=== PATIENT | male | born 1975 | race Caucasian/White ===

== ENCOUNTER 2017-11-14 19:19 | Observation (INO) ==
[2017-11-14 19:41] LABS: Basophils % 0.5 % (0.0-0.8); Eosinophils # 0.3 10*3/uL (0.0-0.87); Eosinophils % 5.8 % (0.00-10.9); Hematocrit 25.6 VOL% (42.0-52.0); Hemoglobin 7.2 GM/DL (14.0-18.0); Immature Granulocytes % 0.2 %; Immature Granulocytes Absolute 0.01 #; Lymphocytes # 1.4 10*3/uL (1.4-4.0); Lymphocytes % 32.6 % (21.2-54.2); Mean Corpuscular HGB Conc 28.1 GM/DL (32-36); Mean Corpuscular Hemoglobin 23 PG (27-34); Mean Corpuscular Volume 82.3 FL (87-102); Mean Platelet Volume 11.3 FL (9.6-12.0); Monocytes # 0.5 10*3/uL (0.11-0.8); Monocytes % 10.9 % (1.7-12.7); Neutrophils # 2.2 10*3/uL (1.4-7.4); Platelet Count 88 T/CUMM (130-400); Red Blood Count 3.11 MC/CUMM (3.8-5.5); Red Cell Distribution Width 17.1 % (9.3-17.3); White Blood Count 4.3 T/CUMM (4-12)
[2017-11-14 19:59] LABS: Calcium 8.7 MG/DL (8.5-10.1); Osmolality,Calculated 284.8 MOS/KG (273-304); Potassium 3.9 MMOL/L (3.5-5.1)
[2017-11-14] MEDS ORDERED: FUROSEMIDE 40 MG/4 ML VIAL IV STA (20:00)
[2017-11-14] MEDS ORDERED: ASPIRIN 325 MG TABLET PO STA (20:00)
[2017-11-14 20:06] LABS: PT Patient Result 10.9 SECS
[2017-11-14 20:08] LABS: Albumin 2.9 G/DL (3.4-5.0); Bilirubin,Total 0.6 MG/DL (0.2-1.0); Calcium 8.6 MG/DL (8.5-10.1); Osmolality,Calculated 286.7 MOS/KG (273-304); Platelet Estimate Decreased; Potassium 3.9 MMOL/L (3.5-5.1); Total Protein 6.4 G/DL (6.4-8.3)
[2017-11-14 20:40] LABS: Ammonia 51 UMOL/L (11-32)
[2017-11-14 20:58] LABS: Apearance,Urine CLEAR (Clear); Bilirubin,Urine Negative (Negative); Blood, Urine Negative (Negative); Glucose,Urine (UA) Negative (Negative); Ketones,Urine Negative (Negative); Mucus,Urine Occasional /LPF (Occasional); Nitrite,Urine Negative (Negative); Protein,Urine Negative; RBC,Urine <1 /HPF (0-4); Squamous Epithelial Cell,Urine Occasional /HPF (0-10); Urine Color Colorless (Yellow); Urine Specific Gravity 1.005 (1.001-1.035); Urine Urobilinogen < 2.0 EU/DL (0.2-1.0); WBC,Urine <1 /HPF (0-6)
[2017-11-14 21:04] LABS: Barbiturates Screen,Urine Negative (Negative); Benzodiazepines Screen,Urine Negative (Negative); Cannabinoid Screen,Urine Negative (Negative); Opiate Screen,Urine Negative (Negative); Phencyclidine Screen,Urine Negative (Negative)
[2017-11-14] MEDS ORDERED: ORPHENADRINE 60 MG/2 ML VIAL IV STA (22:47)
[2017-11-14] MEDS ORDERED: POTASSIUM BICARB EFFERVESCENT 25 MEQ TABLET PO ONE (22:47)
[2017-11-14] MEDS ORDERED: ENOXAPARIN 30 MG/0.3 ML SYRINGE SUBCUT SCH (23:45)
[2017-11-15 00:25] LABS: Risk Ratio 2.76; Thyroid Stimulating Hormone 4.14 uIU/ml (0.358-3.74)
[2017-11-15 01:43] LABS: Basophils % 0.5 % (0.0-0.8); Eosinophils # 0.2 10*3/uL (0.0-0.87); Eosinophils % 5.8 % (0.00-10.9); Hematocrit 25.3 VOL% (42.0-52.0); Hemoglobin 7.3 GM/DL (14.0-18.0); Immature Granulocytes % 0.2 %; Immature Granulocytes Absolute 0.01 #; Lymphocytes # 1.3 10*3/uL (1.4-4.0); Lymphocytes % 30.8 % (21.2-54.2); Mean Corpuscular HGB Conc 28.9 GM/DL (32-36); Mean Corpuscular Hemoglobin 23 PG (27-34); Mean Corpuscular Volume 80.3 FL (87-102); Mean Platelet Volume 12.5 FL (9.6-12.0); Monocytes # 0.6 10*3/uL (0.11-0.8); Monocytes % 15.3 % (1.7-12.7); Neutrophils % 47.4 % (38.7-73.9); Platelet Count 87 T/CUMM (130-400); Red Blood Count 3.15 MC/CUMM (3.8-5.5); Red Cell Distribution Width 17.3 % (9.3-17.3); White Blood Count 4.1 T/CUMM (4-12)
[2017-11-15 02:38] LABS: Albumin 2.9 G/DL (3.4-5.0); Bilirubin,Total 0.5 MG/DL (0.2-1.0); Calcium 8.1 MG/DL (8.5-10.1); Osmolality,Calculated 283.1 MOS/KG (273-304); Potassium 3.7 MMOL/L (3.5-5.1)
[2017-11-15 02:49] LABS: Basophils % 0.3 % (0.0-0.8); Eosinophils # 0.3 10*3/uL (0.0-0.87); Hematocrit 24.7 VOL% (42.0-52.0); Immature Granulocytes % 0.5 %; Immature Granulocytes Absolute 0.02 #; Lymphocytes # 1.1 10*3/uL (1.4-4.0); Lymphocytes % 28.9 % (21.2-54.2); Mean Corpuscular HGB Conc 28.3 GM/DL (32-36); Mean Corpuscular Hemoglobin 23 PG (27-34); Mean Corpuscular Volume 81.3 FL (87-102); Monocytes # 0.6 10*3/uL (0.11-0.8); Monocytes % 14.7 % (1.7-12.7); Neutrophils # 1.9 10*3/uL (1.4-7.4); Neutrophils % 48.6 % (38.7-73.9); Platelet Count 90 T/CUMM (130-400); Red Blood Count 3.04 MC/CUMM (3.8-5.5); Red Cell Distribution Width 17.2 % (9.3-17.3); White Blood Count 3.9 T/CUMM (4-12)
[2017-11-15] MEDS ORDERED: MORPHINE 4 MG/1 ML VIAL IV ONE (03:23)
[2017-11-15 07:53] LABS: Anisocytosis 1+; Band Neutrophils 2 % (0-10); Basophilic Stippling Slight; Eosinophils 5 % (0-10); Lymphocytes 23 % (20-55); Metamyelocytes 1 %; Platelet Estimate Decreased; Segmented Neutrophils 58 % (50-85); Total Cells Counted 100
[2017-11-15] MEDS ORDERED: ASPIRIN 325 MG TABLET PO SCH (09:00)
[2017-11-15] MEDS: RIFAXIMIN 550 MG TABLET PO SCH ×3 (09:49→20:44)
[2017-11-15] MEDS: FUROSEMIDE 40 MG/4 ML VIAL IV SCH (09:50)
[2017-11-15] MEDS: PANTOPRAZOLE 40 MG TABLET PO SCH (09:50)
[2017-11-15] MEDS: CYCLOBENZAPRINE 10 MG TABLET PO PRN (14:24)
[2017-11-15] MEDS: GABAPENTIN 100 MG CAPSULE PO SCH ×2 (16:58→20:45)
[2017-11-15] MEDS: NADOLOL 40 MG TABLET PO SCH (20:45)
[2017-11-15] MEDS: TAMSULOSIN 0.4 MG CAPSULE PO SCH (20:45)
[2017-11-16 03:43] LABS: Basophils % 0.3 % (0.0-0.8); Eosinophils # 0.2 10*3/uL (0.0-0.87); Eosinophils % 5.8 % (0.00-10.9); Hemoglobin 7.1 GM/DL (14.0-18.0); Immature Granulocytes % 0.3 %; Immature Granulocytes Absolute 0.01 #; Lymphocytes % 29.7 % (21.2-54.2); Mean Corpuscular HGB Conc 29.6 GM/DL (32-36); Mean Corpuscular Hemoglobin 23 PG (27-34); Mean Corpuscular Volume 78.9 FL (87-102); Mean Platelet Volume 12.3 FL (9.6-12.0); Monocytes # 0.4 10*3/uL (0.11-0.8); Monocytes % 12.4 % (1.7-12.7); NRBC # 0.02 10*3/uL; Neutrophils # 1.8 10*3/uL (1.4-7.4); Neutrophils % 51.5 % (38.7-73.9); Platelet Count 76 T/CUMM (130-400); Red Blood Count 3.04 MC/CUMM (3.8-5.5); Red Cell Distribution Width 17.3 % (9.3-17.3); White Blood Count 3.5 T/CUMM (4-12)
[2017-11-16 04:31] LABS: Albumin 2.7 G/DL (3.4-5.0); Bilirubin,Direct 0.15 MG/DL (0.0-0.20); Bilirubin,Indirect 0.5 MG/DL (0.0-1.0); Bilirubin,Total 0.6 MG/DL (0.2-1.0); Calcium 7.9 MG/DL (8.5-10.1); Free T4 (Free Thyroxine) 0.89 NG/DL (0.76-1.46); Potassium 3.9 MMOL/L (3.5-5.1); Total Protein 5.7 G/DL (6.4-8.3)
[2017-11-16 05:11] LABS: Anisocytosis 1+; Hypochromasia 2+; Poikilocytosis 1+; Target Cells 1+
[2017-11-16 05:12] LABS: Polychromasia Slight
[2017-11-16] MEDS ORDERED: SODIUM CHLORIDE 0.9% 1,000 ML IV PRN (08:52)
[2017-11-16 09:08] LABS: % Iron Saturation 5.9 % (18-50); Ferritin 7.5 ng/ml (26-388)
[2017-11-16] MEDS: PANTOPRAZOLE 40 MG TABLET PO SCH (10:27)
[2017-11-16] MEDS: RIFAXIMIN 550 MG TABLET PO SCH ×3 (10:27→20:42)
[2017-11-16] MEDS: GABAPENTIN 100 MG CAPSULE PO SCH ×3 (10:27→20:42)
[2017-11-16] MEDS: ASPIRIN CHEW 81 MG TABLET PO SCH (10:28)
[2017-11-16] MEDS: FUROSEMIDE 40 MG/4 ML VIAL IV SCH (10:28)
[2017-11-16] MEDS: CYCLOBENZAPRINE 10 MG TABLET PO PRN (12:10)
[2017-11-16 15:51] LABS: Hematocrit 30.3 VOL% (42.0-52.0)
[2017-11-16 15:58] LABS: Hemoglobin 8.9 GM/DL (14.0-18.0)
[2017-11-16] MEDS: NADOLOL 40 MG TABLET PO SCH (20:42)
[2017-11-16] MEDS: TAMSULOSIN 0.4 MG CAPSULE PO SCH (20:42)
[2017-11-17 03:52] LABS: Basophils % 0.5 % (0.0-0.8); Eosinophils # 0.3 10*3/uL (0.0-0.87); Eosinophils % 6.3 % (0.00-10.9); Hematocrit 27.4 VOL% (42.0-52.0); Hemoglobin 7.8 GM/DL (14.0-18.0); Immature Granulocytes % 0.3 %; Immature Granulocytes Absolute 0.01 #; Lymphocytes # 1.4 10*3/uL (1.4-4.0); Lymphocytes % 34.5 % (21.2-54.2); Mean Corpuscular HGB Conc 28.5 GM/DL (32-36); Mean Corpuscular Hemoglobin 23 PG (27-34); Mean Corpuscular Volume 81.8 FL (87-102); Mean Platelet Volume 11.6 FL (9.6-12.0); Monocytes # 0.5 10*3/uL (0.11-0.8); Monocytes % 13.2 % (1.7-12.7); Neutrophils # 1.8 10*3/uL (1.4-7.4); Neutrophils % 45.2 % (38.7-73.9); Platelet Count 78 T/CUMM (130-400); Red Blood Count 3.35 MC/CUMM (3.8-5.5); Red Cell Distribution Width 16.9 % (9.3-17.3); White Blood Count 3.9 T/CUMM (4-12)
[2017-11-17 04:19] LABS: Calcium 8.2 MG/DL (8.5-10.1); Potassium 3.7 MMOL/L (3.5-5.1)
[2017-11-17 04:50] LABS: Hypochromasia 1+; Microcytosis 1+
[2017-11-17 04:51] LABS: Ovalocytes Slight; Platelet Estimate Decreased
[2017-11-17] MEDS: GABAPENTIN 100 MG CAPSULE PO SCH ×3 (09:30→21:16)
[2017-11-17] MEDS: PANTOPRAZOLE 40 MG TABLET PO SCH (09:30)
[2017-11-17] MEDS: CYCLOBENZAPRINE 10 MG TABLET PO PRN (09:31)
[2017-11-17] MEDS: RIFAXIMIN 550 MG TABLET PO SCH ×3 (09:31→21:16)
[2017-11-17] MEDS: ASPIRIN CHEW 81 MG TABLET PO SCH (09:32)
[2017-11-17] MEDS: TAMSULOSIN 0.4 MG CAPSULE PO SCH (21:16)
[2017-11-17] MEDS: NADOLOL 40 MG TABLET PO SCH (21:16)
[2017-11-18 04:39] LABS: Basophils % 0.5 % (0.0-0.8); Eosinophils # 0.3 10*3/uL (0.0-0.87); Eosinophils % 6.7 % (0.00-10.9); Hematocrit 27.2 VOL% (42.0-52.0); Immature Granulocytes % 0.5 %; Immature Granulocytes Absolute 0.02 #; Lymphocytes # 1.3 10*3/uL (1.4-4.0); Lymphocytes % 32.2 % (21.2-54.2); Mean Corpuscular HGB Conc 29.4 GM/DL (32-36); Mean Corpuscular Hemoglobin 24 PG (27-34); Mean Corpuscular Volume 80.7 FL (87-102); Monocytes # 0.5 10*3/uL (0.11-0.8); Neutrophils # 1.9 10*3/uL (1.4-7.4); Neutrophils % 47.1 % (38.7-73.9); Platelet Count 78 T/CUMM (130-400); Red Blood Count 3.37 MC/CUMM (3.8-5.5); Red Cell Distribution Width 16.8 % (9.3-17.3)
[2017-11-18 05:11] LABS: Calcium 8.1 MG/DL (8.5-10.1); Osmolality,Calculated 281.3 MOS/KG (273-304)
[2017-11-18 05:33] LABS: Anisocytosis 1+; Hypochromasia 1+; Poikilocytosis 1+
[2017-11-18] MEDS: RIFAXIMIN 550 MG TABLET PO SCH (08:40)
[2017-11-18] MEDS: GABAPENTIN 100 MG CAPSULE PO SCH (08:41)
[2017-11-18] MEDS: PANTOPRAZOLE 40 MG TABLET PO SCH (08:41)
[2017-11-18] MEDS: ASPIRIN CHEW 81 MG TABLET PO SCH (08:41)
[2017-11-18] MEDS ORDERED: FERROUS SULFATE 325 MG TABLET PO SCH (09:00)
[2017-11-18] MEDS ORDERED: LIDOCAINE 1% 5 ML VIAL ONE (09:25)
[2017-11-18] MEDS ORDERED: PROPOFOL 200 MG/20 ML VIAL IV ONE (09:25)
[2017-11-18 11:29] VITALS: BP 108/60
== END 2017-11-18 15:07 | disposition home or self-care (01) ==
LOC: N.EDINP 19:19 → N.ED 19:19 → N.TELEN 11-15 00:38
PROVIDERS: ADMIT Internal Medicine; ATTEND Internal Medicine

== ENCOUNTER 2018-05-30 15:03 | Inpatient (IN) ==
[2018-05-30 15:59] LABS: Basophils % 0.3 % (0.0-0.8); Eosinophils # 0.2 10*3/uL (0.0-0.87); Eosinophils % 3.3 % (0.00-10.9); Hematocrit 32.3 VOL% (42.0-52.0); Hemoglobin 10.2 GM/DL (14.0-18.0); Immature Granulocytes % 0.5 %; Immature Granulocytes Absolute 0.03 #; Lymphocytes # 0.7 10*3/uL (1.4-4.0); Lymphocytes % 10.6 % (21.2-54.2); Mean Corpuscular HGB Conc 31.6 GM/DL (32-36); Mean Corpuscular Hemoglobin 33 PG (27-34); Mean Corpuscular Volume 105.2 FL (87-102); Mean Platelet Volume 12.1 FL (9.6-12.0); Monocytes # 0.4 10*3/uL (0.11-0.8); Monocytes % 5.9 % (1.7-12.7); Neutrophils # 4.9 10*3/uL (1.4-7.4); Neutrophils % 79.4 % (38.7-73.9); Platelet Count 82 T/CUMM (130-400); Red Blood Count 3.07 MC/CUMM (3.8-5.5); Red Cell Distribution Width 15.9 % (9.3-17.3); White Blood Count 6.1 T/CUMM (4-12)
[2018-05-30 16:12] LABS: Albumin 2.9 G/DL (3.4-5.0); Bilirubin,Total 0.7 MG/DL (0.2-1.0); Calcium 7.9 MG/DL (8.5-10.1); Osmolality,Calculated 276.5 MOS/KG (273-304); Total Protein 6.4 G/DL (6.4-8.3)
[2018-05-30] MEDS ORDERED: SODIUM CHLORIDE 0.9% 1,000 ML IV STA (16:49)
[2018-05-30] MEDS ORDERED: ONDANSETRON 4 MG/2 ML VIAL IV STA (16:49)
[2018-05-30] MEDS ORDERED: PANTOPRAZOLE INJ 80 MG in SODIUM CHLORIDE 0.9% 100 ML IV STA (16:49)
[2018-05-30 17:03] LABS: PT Patient Result 10.5 SECS; Partial Thromboplastin Time 22.7 SECS (0-40)
[2018-05-30 17:05] LABS: Anisocytosis 1+; Band Neutrophils 2 % (0-10); Eosinophils 3 % (0-10); Lymphocytes 9 % (20-55); Ovalocytes Few; Platelet Estimate Decreased; Segmented Neutrophils 81 % (50-85); Total Cells Counted 100
[2018-05-30 17:12] LABS: Albumin 2.9 G/DL (3.4-5.0); Bilirubin,Total 0.8 MG/DL (0.2-1.0); Osmolality,Calculated 274.7 MOS/KG (273-304); Potassium 3.9 MMOL/L (3.5-5.1); Total Protein 6.4 G/DL (6.4-8.3)
[2018-05-30] MEDS ORDERED: PANTOPRAZOLE 40 MG VIAL IV ONE (17:23)
[2018-05-30] MEDS ORDERED: MAGNESIUM SULF RIDER 4 GM in PREMIX 1 EACH IV PRN (18:28)
[2018-05-30] MEDS ORDERED: POTASSIUM CHLORIDE RIDER 10 MEQ in PREMIX 1 EACH IV PRN (18:28)
[2018-05-30] MEDS ORDERED: MAGNESIUM SULF RIDER 2 GM in PREMIX 1 EACH IV PRN (18:28)
[2018-05-30] MEDS ORDERED: hydrALAZINE 20 MG/1 ML VIAL IV PRN (19:17)
[2018-05-30] MEDS ORDERED: ACETAMINOPHEN 325 MG TABLET PO PRN (19:21)
[2018-05-30] MEDS: SODIUM CHLORIDE 0.9% 1,000 ML IV SCH (19:56)
[2018-05-30] MEDS: ONDANSETRON 4 MG/2 ML VIAL IV PRN (20:07)
[2018-05-30] MEDS: HYDROmorphone 2 MG/1 ML VIAL IV PRN (20:09)
[2018-05-30 20:10] LABS: HIV Antigen/Antibody Result Nonreactive (Nonreactive)
[2018-05-30] MEDS: OCTREOTIDE 500 MCG in SODIUM CHLORIDE 0.9% 100 ML IV SCH (20:10)
[2018-05-30 20:11] LABS: Hepatitis A Ab IgM Quant 0.13 Index; Hepatitis A Ab IgM Result Negative (Negative); Hepatitis B Core IgM Quant 0.15 Index; Hepatitis B Core IgM Result Negative (Negative); Hepatitis B Surface Ag Quant < 0.10 Index; Hepatitis B Surface Ag Result Negative (Negative); Hepatitis C Virus Ab Result Negative (Negative)
[2018-05-30 20:16] LABS: Hematocrit 27.7 VOL% (42.0-52.0); Hemoglobin 8.9 GM/DL (14.0-18.0)
[2018-05-30] MEDS: MEROPENEM 1,000 MG in SODIUM CHLORIDE 0.9% 100 ML IV SCH (20:35)
[2018-05-30 21:18] LABS: Barbiturates Screen,Urine Negative (Negative); Benzodiazepines Screen,Urine Negative (Negative); Cannabinoid Screen,Urine Negative (Negative); Opiate Screen,Urine Negative (Negative); Phencyclidine Screen,Urine Negative (Negative)
[2018-05-30] MEDS: VANCOMYCIN INJ 2,000 MG in SODIUM CHLORIDE 0.9% 500 ML IV SCH (22:21)
[2018-05-31] MEDS ORDERED: SODIUM CHLORIDE 0.9% 1,000 ML IV ONE (00:50)
[2018-05-31 01:02] LABS: Basophils % 0.1 % (0.0-0.8); Eosinophils % 0.4 % (0.00-10.9); Hematocrit 27.9 VOL% (42.0-52.0); Hemoglobin 8.7 GM/DL (14.0-18.0); Immature Granulocytes % 0.9 %; Immature Granulocytes Absolute 0.07 #; Lymphocytes % 13.1 % (21.2-54.2); Mean Corpuscular HGB Conc 31.2 GM/DL (32-36); Mean Corpuscular Hemoglobin 34 PG (27-34); Mean Corpuscular Volume 107.3 FL (87-102); Mean Platelet Volume 11.9 FL (9.6-12.0); Monocytes # 0.5 10*3/uL (0.11-0.8); Monocytes % 5.9 % (1.7-12.7); Neutrophils # 6.2 10*3/uL (1.4-7.4); Neutrophils % 79.6 % (38.7-73.9); Platelet Count 73 T/CUMM (130-400); Red Cell Distribution Width 16.4 % (9.3-17.3); White Blood Count 7.8 T/CUMM (4-12)
[2018-05-31 01:28] LABS: INR 1.1; PT Patient Result 11.4 SECS; Partial Thromboplastin Time 25.8 SECS (0-40)
[2018-05-31] MEDS: MEROPENEM 1,000 MG in SODIUM CHLORIDE 0.9% 100 ML IV SCH ×3 (02:35→17:59)
[2018-05-31 04:03] LABS: Hematocrit 28.3 VOL% (42.0-52.0); Hemoglobin 8.7 GM/DL (14.0-18.0)
[2018-05-31] MEDS: SODIUM CHLORIDE 0.9% 1,000 ML IV SCH ×5 (04:05→22:05)
[2018-05-31] MEDS: OCTREOTIDE 500 MCG in SODIUM CHLORIDE 0.9% 100 ML IV SCH ×2 (06:02→15:33)
[2018-05-31] MEDS: HYDROmorphone 2 MG/1 ML VIAL IV PRN ×2 (07:56→17:02)
[2018-05-31] MEDS: VANCOMYCIN INJ 2,000 MG in SODIUM CHLORIDE 0.9% 500 ML IV SCH ×2 (09:38→21:59)
[2018-05-31 12:52] LABS: Hematocrit 28.8 VOL% (42.0-52.0)
[2018-05-31 18:05] LABS: Hematocrit 30.4 VOL% (42.0-52.0); Hemoglobin 9.3 GM/DL (14.0-18.0)
[2018-06-01] MEDS: OCTREOTIDE 500 MCG in SODIUM CHLORIDE 0.9% 100 ML IV SCH ×4 (01:13→22:53)
[2018-06-01 02:23] LABS: Hematocrit 26.8 VOL% (42.0-52.0); Hemoglobin 8.2 GM/DL (14.0-18.0)
[2018-06-01 02:30] LABS: INR 1.1; PT Patient Result 11.5 SECS
[2018-06-01] MEDS: MEROPENEM 1,000 MG in SODIUM CHLORIDE 0.9% 100 ML IV SCH ×3 (02:33→18:10)
[2018-06-01 02:44] LABS: Albumin 2.2 G/DL (3.4-5.0); Bilirubin,Total 0.6 MG/DL (0.2-1.0); Calcium 7.3 MG/DL (8.5-10.1); Osmolality,Calculated 275.7 MOS/KG (273-304); Potassium 3.9 MMOL/L (3.5-5.1)
[2018-06-01] MEDS: SODIUM CHLORIDE 0.9% 1,000 ML IV SCH ×4 (04:36→18:15)
[2018-06-01] MEDS: HYDROmorphone 2 MG/1 ML VIAL IV PRN (08:56)
[2018-06-01 09:05] LABS: Hematocrit 26.8 VOL% (42.0-52.0); Hemoglobin 8.3 GM/DL (14.0-18.0)
[2018-06-01] MEDS: VANCOMYCIN INJ 2,000 MG in SODIUM CHLORIDE 0.9% 500 ML IV SCH ×2 (09:51→15:25)
[2018-06-01] MEDS: ONDANSETRON 4 MG/2 ML VIAL IV PRN (20:57)
[2018-06-01] MEDS: PANTOPRAZOLE 40 MG VIAL IV SCH (21:11)
[2018-06-02] MEDS: MEROPENEM 1,000 MG in SODIUM CHLORIDE 0.9% 100 ML IV SCH ×2 (02:52→11:17)
[2018-06-02] MEDS: SODIUM CHLORIDE 0.9% 1,000 ML IV SCH ×3 (02:53→21:00)
[2018-06-02 04:27] LABS: PT Patient Result 10.7 SECS
[2018-06-02 04:32] LABS: Basophils % 0.3 % (0.0-0.8); Eosinophils # 0.5 10*3/uL (0.0-0.87); Eosinophils % 15.2 % (0.00-10.9); Hematocrit 27.3 VOL% (42.0-52.0); Hemoglobin 8.6 GM/DL (14.0-18.0); Immature Granulocytes % 0.3 %; Immature Granulocytes Absolute 0.01 #; Lymphocytes # 0.9 10*3/uL (1.4-4.0); Lymphocytes % 25.8 % (21.2-54.2); Mean Corpuscular HGB Conc 31.5 GM/DL (32-36); Mean Corpuscular Hemoglobin 34 PG (27-34); Mean Corpuscular Volume 106.6 FL (87-102); Mean Platelet Volume 12.9 FL (9.6-12.0); Monocytes # 0.4 10*3/uL (0.11-0.8); Monocytes % 11.2 % (1.7-12.7); Neutrophils # 1.7 10*3/uL (1.4-7.4); Neutrophils % 47.2 % (38.7-73.9); Platelet Count 72 T/CUMM (130-400); Red Blood Count 2.56 MC/CUMM (3.8-5.5); Red Cell Distribution Width 15.1 % (9.3-17.3); White Blood Count 3.6 T/CUMM (4-12)
[2018-06-02 04:51] LABS: Calcium 7.5 MG/DL (8.5-10.1); Osmolality,Calculated 276.5 MOS/KG (273-304); Potassium 3.9 MMOL/L (3.5-5.1)
[2018-06-02 05:05] LABS: Band Neutrophils 3 % (0-10); Eosinophils 17 % (0-10); Lymphocytes 24 % (20-55); Platelet Estimate Decreased; Segmented Neutrophils 47 % (50-85); Total Cells Counted 100
[2018-06-02] MEDS: PANTOPRAZOLE 40 MG VIAL IV SCH ×2 (08:59→21:06)
[2018-06-02] MEDS: VANCOMYCIN INJ 2,000 MG in SODIUM CHLORIDE 0.9% 500 ML IV SCH (08:59)
[2018-06-02] MEDS: OCTREOTIDE 500 MCG in SODIUM CHLORIDE 0.9% 100 ML IV SCH (11:17)
[2018-06-02] MEDS ORDERED: PROPOFOL 200 MG/20 ML VIAL IV ONE (13:53)
[2018-06-02] MEDS ORDERED: GLYCOPYRROLATE 0.4 MG/2 ML VIAL ONE (13:53)
[2018-06-02] MEDS ORDERED: LIDOCAINE 2% 5 ML VIAL ONE (13:53)
[2018-06-02] MEDS ORDERED: MEPERIDINE 50 MG/1 ML VIAL IV ONE (14:25)
[2018-06-02] MEDS: LACTULOSE 20 GM/30 ML UDCUP PO SCH ×2 (16:38→21:02)
[2018-06-02] MEDS: HYDROmorphone 2 MG/1 ML VIAL IV PRN ×2 (16:53→21:08)
[2018-06-02] MEDS: TAMSULOSIN 0.4 MG CAPSULE PO SCH (21:21)
[2018-06-03] MEDS: LACTULOSE 20 GM/30 ML UDCUP PO SCH ×4 (01:33→21:14)
[2018-06-03] MEDS: HYDROmorphone 2 MG/1 ML VIAL IV PRN ×3 (05:21→21:07)
[2018-06-03] MEDS: CHOLECALCIFEROL 1,000 UNIT TABLET PO SCH (10:19)
[2018-06-03] MEDS: PANTOPRAZOLE 40 MG VIAL IV SCH (10:19)
[2018-06-03] MEDS: SODIUM CHLORIDE 0.9% 1,000 ML IV SCH (15:33)
[2018-06-03] MEDS ORDERED: FUROSEMIDE 40 MG/4 ML VIAL IV ONE (15:56)
[2018-06-03] MEDS: TAMSULOSIN 0.4 MG CAPSULE PO SCH (21:04)
[2018-06-03] MEDS: ONDANSETRON 4 MG/2 ML VIAL IV PRN (21:05)
[2018-06-03] MEDS: FAMOTIDINE 20 MG/2 ML VIAL IV SCH (21:10)
[2018-06-04] MEDS: ZALEPLON 5 MG CAPSULE PO PRN ×2 (01:07→21:46)
[2018-06-04] MEDS: LACTULOSE 20 GM/30 ML UDCUP PO SCH ×4 (02:10→20:39)
[2018-06-04] MEDS: CHOLECALCIFEROL 1,000 UNIT TABLET PO SCH (10:02)
[2018-06-04] MEDS ORDERED: ALUMINUM/MAGNES/SIMETH MAX STR 30 ML UDCUP PO PRN (10:24)
[2018-06-04] MEDS: FAMOTIDINE 20 MG/2 ML VIAL IV SCH (10:27)
[2018-06-04] MEDS: FAMOTIDINE INJ 40 MG in SODIUM CHLORIDE 0.9% 100 ML IV SCH ×2 (11:31→21:47)
[2018-06-04] MEDS: HYDROmorphone 2 MG/1 ML VIAL IV PRN ×2 (11:32→20:40)
[2018-06-04] MEDS: TAMSULOSIN 0.4 MG CAPSULE PO SCH (20:39)
[2018-06-05] MEDS: LACTULOSE 20 GM/30 ML UDCUP PO SCH ×3 (01:57→11:49)
[2018-06-05 04:53] LABS: Basophils % 0.8 % (0.0-0.8); Eosinophils # 0.2 10*3/uL (0.0-0.87); Eosinophils % 6.1 % (0.00-10.9); Hematocrit 27.2 VOL% (42.0-52.0); Hemoglobin 8.6 GM/DL (14.0-18.0); Lymphocytes # 1.6 10*3/uL (1.4-4.0); Lymphocytes % 44.1 % (21.2-54.2); Mean Corpuscular HGB Conc 31.6 GM/DL (32-36); Mean Corpuscular Hemoglobin 33 PG (27-34); Mean Platelet Volume 12.7 FL (9.6-12.0); Monocytes # 0.4 10*3/uL (0.11-0.8); Monocytes % 10.9 % (1.7-12.7); Neutrophils # 1.4 10*3/uL (1.4-7.4); Neutrophils % 38.1 % (38.7-73.9); Red Blood Count 2.64 MC/CUMM (3.8-5.5); Red Cell Distribution Width 14.6 % (9.3-17.3); White Blood Count 3.6 T/CUMM (4-12)
[2018-06-05 04:54] LABS: Platelet Count 54 T/CUMM (130-400)
[2018-06-05 05:11] LABS: Albumin 2.4 G/DL (3.4-5.0); Bilirubin,Total 1.2 MG/DL (0.2-1.0); Calcium 8.1 MG/DL (8.5-10.1); Osmolality,Calculated 271.7 MOS/KG (273-304); Potassium 3.7 MMOL/L (3.5-5.1); Total Protein 5.4 G/DL (6.4-8.3)
[2018-06-05 05:24] LABS: Band Neutrophils 1 % (0-10); Eosinophils 10 % (0-10); Lymphocytes 35 % (20-55); Platelet Estimate Decreased; Segmented Neutrophils 44 % (50-85); Total Cells Counted 100
[2018-06-05 05:25] LABS: Anisocytosis 2+; Macrocytosis 2+; Microcytosis Slight
[2018-06-05] MEDS: CHOLECALCIFEROL 1,000 UNIT TABLET PO SCH (11:45)
[2018-06-05] MEDS: FAMOTIDINE INJ 40 MG in SODIUM CHLORIDE 0.9% 100 ML IV SCH (11:49)
[2018-06-05 12:16] VITALS: BP 141/61
[2018-06-05] MEDS ORDERED: NADOLOL 40 MG TABLET PO SCH (19:00)
== END 2018-06-05 13:59 | disposition home or self-care (01) | DRG 369 ==
LOC: N.ED 15:03 → N.EDINP 18:24 → SUATTDRO 18:24 → N.CC 18:46 → N.4E 06-02 18:09
PROVIDERS: ADMIT Internal Medicine; ATTEND Hospitalist
PROC: EGDWEBL (ICD-10-PCS; 2018-06-02 13:05)

== ENCOUNTER 2018-06-08 21:59 | Inpatient (IN) ==
[2018-06-08] MEDS ORDERED: ONDANSETRON 4 MG/2 ML VIAL IV STA (22:40)
[2018-06-08] MEDS ORDERED: PANTOPRAZOLE 40 MG VIAL IV STA (22:40)
[2018-06-08] MEDS ORDERED: METOCLOPRAMIDE 10 MG/2 ML VIAL IV STA (22:40)
[2018-06-08] MEDS ORDERED: fentaNYL 100 MCG/2 ML VIAL IV STA (22:40)
[2018-06-08 22:51] LABS: Basophils % 0.2 % (0.0-0.8); Eosinophils # 0.2 10*3/uL (0.0-0.87); Eosinophils % 3.9 % (0.00-10.9); Hematocrit 32.2 VOL% (42.0-52.0); Hemoglobin 10.2 GM/DL (14.0-18.0); Immature Granulocytes % 0.2 %; Immature Granulocytes Absolute 0.01 #; Lymphocytes # 1.4 10*3/uL (1.4-4.0); Lymphocytes % 34.1 % (21.2-54.2); Mean Corpuscular HGB Conc 31.7 GM/DL (32-36); Mean Corpuscular Hemoglobin 32 PG (27-34); Mean Corpuscular Volume 100.9 FL (87-102); Monocytes # 0.4 10*3/uL (0.11-0.8); Monocytes % 8.7 % (1.7-12.7); Neutrophils # 2.2 10*3/uL (1.4-7.4); Neutrophils % 52.9 % (38.7-73.9); Red Blood Count 3.19 MC/CUMM (3.8-5.5); Red Cell Distribution Width 14.4 % (9.3-17.3); White Blood Count 4.1 T/CUMM (4-12)
[2018-06-08 22:52] LABS: Platelet Count 88 T/CUMM (130-400)
[2018-06-08 22:59] LABS: INR 1.1; PT Patient Result 11.4 SECS; Partial Thromboplastin Time 25.9 SECS (0-40)
[2018-06-08 23:11] LABS: Alanine Aminotransferase 35 U/L (16-61); Albumin 2.9 G/DL (3.4-5.0); Alkaline Phosphatase 142 U/L (45-117); Aspartate Amino Transferase 49 U/L (0-37); Blood Urea Nitrogen 8 MG/DL (7-18); Calcium 8.5 MG/DL (8.5-10.1); Glucose 100 MG/DL (74-106); Osmolality,Calculated 276.4 MOS/KG (273-304); Potassium 3.9 MMOL/L (3.5-5.1); Sodium 140 MMOL/L (136-145); Total Protein 6.4 G/DL (6.4-8.3); Troponin I < 0.015 NG/ML (0.00-0.045)
[2018-06-08 23:55] LABS: Hypochromasia 1+; Ovalocytes 1+; Platelet Estimate Decreased; Polychromasia Few; Tear Drop Cells Few
[2018-06-09] MEDS ORDERED: SODIUM CHLORIDE 0.9% 1,000 ML IV STA (00:13)
[2018-06-09] MEDS ORDERED: fentaNYL 100 MCG/2 ML VIAL IV STA (00:38)
[2018-06-09] MEDS ORDERED: ONDANSETRON 4 MG/2 ML VIAL IV STA (00:38)
[2018-06-09] MEDS ORDERED: NICOTINE 21 MG/24 HR PATCH TRANSDERM PRN (01:16)
[2018-06-09] MEDS ORDERED: diphenhydrAMINE CAP 25 MG CAPSULE PO PRN (01:16)
[2018-06-09] MEDS: SODIUM CHLORIDE 0.9% 1,000 ML IV SCH ×3 (02:20→18:57)
[2018-06-09] MEDS: ONDANSETRON 4 MG/2 ML VIAL IV PRN ×2 (02:42→10:25)
[2018-06-09] MEDS: MORPHINE 4 MG/1 ML VIAL IV PRN ×3 (03:57→12:36)
[2018-06-09] MEDS: FERROUS SULFATE 325 MG TABLET PO SCH ×2 (10:15→20:39)
[2018-06-09] MEDS: ASCORBIC ACID 500 MG TABLET PO SCH (10:16)
[2018-06-09] MEDS: PANTOPRAZOLE 40 MG TABLET PO SCH (12:37)
[2018-06-09] MEDS ORDERED: ALUM/MAG/SIMETH/LIDO VISC 1:1 30 ML BOTTLE PO ONE (15:06)
[2018-06-09] MEDS: HYDROmorphone 2 MG/1 ML VIAL IV PRN (20:46)
[2018-06-10] MEDS: SODIUM CHLORIDE 0.9% 1,000 ML IV SCH ×3 (02:43→23:23)
[2018-06-10 05:14] LABS: Basophils % 0.6 % (0.0-0.8); Eosinophils # 0.1 10*3/uL (0.0-0.87); Eosinophils % 3.2 % (0.00-10.9); Hematocrit 29.3 VOL% (42.0-52.0); Hemoglobin 9.1 GM/DL (14.0-18.0); Immature Granulocytes % 0.3 %; Immature Granulocytes Absolute 0.01 #; Lymphocytes # 1.2 10*3/uL (1.4-4.0); Mean Corpuscular HGB Conc 31.1 GM/DL (32-36); Mean Corpuscular Hemoglobin 32 PG (27-34); Mean Corpuscular Volume 102.4 FL (87-102); Monocytes # 0.3 10*3/uL (0.11-0.8); Monocytes % 10.4 % (1.7-12.7); Neutrophils # 1.5 10*3/uL (1.4-7.4); Neutrophils % 48.5 % (38.7-73.9); Platelet Count 72 T/CUMM (130-400); Red Blood Count 2.86 MC/CUMM (3.8-5.5); Red Cell Distribution Width 14.6 % (9.3-17.3); White Blood Count 3.2 T/CUMM (4-12)
[2018-06-10 05:44] LABS: Albumin 2.3 G/DL (3.4-5.0); Calcium 7.9 MG/DL (8.5-10.1); Osmolality,Calculated 272.5 MOS/KG (273-304); Potassium 4.5 MMOL/L (3.5-5.1); Total Protein 5.4 G/DL (6.4-8.3)
[2018-06-10 05:48] LABS: Eosinophils 4 % (0-10); Hypochromasia 1+; Lymphocytes 33 % (20-55); Ovalocytes Slight; Platelet Estimate Decreased; Segmented Neutrophils 57 % (50-85); Total Cells Counted 100
[2018-06-10] MEDS: PANTOPRAZOLE 40 MG TABLET PO SCH (10:23)
[2018-06-10] MEDS: ASCORBIC ACID 500 MG TABLET PO SCH (10:23)
[2018-06-10] MEDS: FERROUS SULFATE 325 MG TABLET PO SCH ×2 (10:23→20:49)
[2018-06-10] MEDS: HYDROmorphone 2 MG/1 ML VIAL IV PRN (11:29)
[2018-06-10] MEDS: ONDANSETRON 4 MG/2 ML VIAL IV PRN (11:29)
[2018-06-10 12:44] LABS: Troponin I < 0.015 NG/ML (0.00-0.045)
[2018-06-11 05:08] LABS: Calcium 8.2 MG/DL (8.5-10.1); Osmolality,Calculated 273.5 MOS/KG (273-304); Potassium 4.1 MMOL/L (3.5-5.1)
[2018-06-11] MEDS: PANTOPRAZOLE 40 MG TABLET PO SCH (08:16)
[2018-06-11] MEDS: ASCORBIC ACID 500 MG TABLET PO SCH (08:16)
[2018-06-11] MEDS: FERROUS SULFATE 325 MG TABLET PO SCH ×2 (08:16→21:20)
[2018-06-11] MEDS ORDERED: PROPOFOL 200 MG/20 ML VIAL IV ONE (09:00)
[2018-06-11] MEDS ORDERED: LIDOCAINE 2% 5 ML VIAL ONE (09:00)
[2018-06-11] MEDS: ONDANSETRON 4 MG/2 ML VIAL IV PRN ×2 (09:28→21:26)
[2018-06-11] MEDS: HYDROmorphone 2 MG/1 ML VIAL IV PRN ×2 (09:29→21:28)
[2018-06-11] MEDS: SODIUM CHLORIDE 0.9% 1,000 ML IV SCH (10:25)
[2018-06-11 10:42] LABS: Free T4 (Free Thyroxine) 1.27 NG/DL (0.76-1.46)
[2018-06-11 12:38] LABS: Basophils % 0.5 % (0.0-0.8); Eosinophils # 0.1 10*3/uL (0.0-0.87); Eosinophils % 3.5 % (0.00-10.9); Hematocrit 33.3 VOL% (42.0-52.0); Hemoglobin 10.5 GM/DL (14.0-18.0); Immature Granulocytes % 0.5 %; Immature Granulocytes Absolute 0.02 #; Lymphocytes # 1.2 10*3/uL (1.4-4.0); Lymphocytes % 29.9 % (21.2-54.2); Mean Corpuscular HGB Conc 31.5 GM/DL (32-36); Mean Corpuscular Hemoglobin 32 PG (27-34); Mean Corpuscular Volume 101.5 FL (87-102); Mean Platelet Volume 12.3 FL (9.6-12.0); Monocytes # 0.3 10*3/uL (0.11-0.8); Monocytes % 7.9 % (1.7-12.7); Neutrophils # 2.3 10*3/uL (1.4-7.4); Neutrophils % 57.7 % (38.7-73.9); Platelet Count 83 T/CUMM (130-400); Red Blood Count 3.28 MC/CUMM (3.8-5.5); Red Cell Distribution Width 14.4 % (9.3-17.3); White Blood Count 4.1 T/CUMM (4-12)
[2018-06-11 14:52] LABS: Hypochromasia 1+
[2018-06-11 14:53] LABS: Ovalocytes Few; Platelet Estimate Decreased; Polychromasia Slight; Schistocytes Slight; Tear Drop Cells Few
[2018-06-11] MEDS: SUCRALFATE 1 GM/10 ML UDCUP PO SCH (18:05)
[2018-06-12] MEDS: SODIUM CHLORIDE 0.9% 1,000 ML IV SCH ×4 (01:02→13:52)
[2018-06-12] MEDS: ASCORBIC ACID 500 MG TABLET PO SCH (09:42)
[2018-06-12] MEDS: SUCRALFATE 1 GM/10 ML UDCUP PO SCH (09:42)
[2018-06-12] MEDS: FERROUS SULFATE 325 MG TABLET PO SCH (09:42)
[2018-06-12 12:13] VITALS: BP 110/53
== END 2018-06-12 14:44 | disposition home or self-care (01) | DRG 381 ==
LOC: N.ED 21:59 → N.EDINP 06-09 01:16 → N.4E 06-09 01:54
PROVIDERS: ADMIT Internal Medicine; ATTEND Internal Medicine

== ENCOUNTER 2018-08-11 19:10 | Inpatient (IN) ==
[2018-08-11 19:35] LABS: Basophils % 0.5 % (0.0-0.8); Eosinophils # 0.3 10*3/uL (0.0-0.87); Eosinophils % 8.3 % (0.00-10.9); Hematocrit 25.5 VOL% (42.0-52.0); Hemoglobin 7.5 GM/DL (14.0-18.0); Immature Granulocytes % 0.3 %; Immature Granulocytes Absolute 0.01 #; Lymphocytes # 1.1 10*3/uL (1.4-4.0); Lymphocytes % 28.8 % (21.2-54.2); Mean Corpuscular HGB Conc 29.4 GM/DL (32-36); Mean Corpuscular Volume 97.7 FL (87-102); Mean Platelet Volume 11.7 FL (9.6-12.0); Monocytes % 12.2 % (1.7-12.7); Neutrophils % 49.9 % (38.7-73.9); Platelet Count 83 T/CUMM (130-400); Red Blood Count 2.61 MC/CUMM (3.8-5.5); Red Cell Distribution Width 14.5 % (9.3-17.3); White Blood Count 3.9 T/CUMM (4-12)
[2018-08-11 19:56] LABS: Eosinophils 9 % (0-10); Hypochromasia 1+; Lymphocytes 29 % (20-55); Microcytosis 1+; Segmented Neutrophils 50 % (50-85); Total Cells Counted 100
[2018-08-11 19:57] LABS: Platelet Estimate Decreased; Polychromasia Few
[2018-08-11 19:58] LABS: Anisocytosis 1+; Ovalocytes Few; Poikilocytosis 1+; Tear Drop Cells Few
[2018-08-11 19:59] LABS: Schistocytes Slight
[2018-08-11 20:00] LABS: Albumin 2.6 G/DL (3.4-5.0); Bilirubin,Total 0.8 MG/DL (0.2-1.0); Calcium 7.8 MG/DL (8.5-10.1); Osmolality,Calculated 278.3 MOS/KG (273-304); Total Protein 5.7 G/DL (6.4-8.3)
[2018-08-11] MEDS ORDERED: SODIUM CHLORIDE 0.9% 1,000 ML IV PRN ×2 (20:25)
[2018-08-11] MEDS ORDERED: ONDANSETRON 4 MG/2 ML VIAL IV PRN (23:52)
[2018-08-11] MEDS ORDERED: OCTREOTIDE 100 MCG/ML SYRINGE IV ONE (23:57)
[2018-08-12] MEDS ORDERED: FEXOFENADINE 180 MG TABLET PO PRN (00:07)
[2018-08-12] MEDS ORDERED: BENZOCAINE/MENTHOL LOZENGE 18/BOX PO PRN (00:28)
[2018-08-12 00:40] LABS: Hematocrit 22.5 VOL% (42.0-52.0); Hemoglobin 6.8 GM/DL (14.0-18.0)
[2018-08-12] MEDS: OCTREOTIDE 500 MCG in SODIUM CHLORIDE 0.9% 100 ML IV SCH ×4 (00:57→21:22)
[2018-08-12] MEDS: HYOSCYAMINE 0.125 MG TABLET PO PRN ×2 (05:37→14:51)
[2018-08-12 08:58] LABS: PT Patient Result 10.8 SECS
[2018-08-12] MEDS ORDERED: LIDOCAINE 100 MG/5 ML SYRINGE ONE (09:00)
[2018-08-12] MEDS ORDERED: PROPOFOL 200 MG/20 ML VIAL IV ONE (09:00)
[2018-08-12 09:15] LABS: Calcium 7.7 MG/DL (8.5-10.1); Osmolality,Calculated 280.3 MOS/KG (273-304)
[2018-08-12] MEDS: FLUTICASONE 50 MCG NASAL SPRAY 16 GM BOTTLE BOTH NARES SCH ×2 (10:00→21:22)
[2018-08-12] MEDS: PANTOPRAZOLE 40 MG VIAL IV SCH (10:01)
[2018-08-12] MEDS: CHOLECALCIFEROL 1,000 UNIT TABLET PO SCH (10:01)
[2018-08-12] MEDS ORDERED: LACTATED RINGERS 500 ML IV SCH (12:00)
[2018-08-12 18:18] LABS: Hematocrit 30.7 VOL% (42.0-52.0)
[2018-08-12 18:19] LABS: Hemoglobin 8.9 GM/DL (14.0-18.0)
[2018-08-12 20:18] LABS: Cancer Antigen 19-9 4.3 U/ML (0-37); Carcinoembryonic Antigen 1.4 NG/ML (0.0-5.0)
[2018-08-12] MEDS: TAMSULOSIN 0.4 MG CAPSULE PO SCH (21:21)
[2018-08-12] MEDS: NADOLOL 40 MG TABLET PO SCH (21:22)
[2018-08-13 04:42] LABS: PT Patient Result 10.8 SECS
[2018-08-13 04:56] LABS: Basophils % 0.5 % (0.0-0.8); Eosinophils # 0.2 10*3/uL (0.0-0.87); Eosinophils % 5.6 % (0.00-10.9); Hematocrit 27.4 VOL% (42.0-52.0); Hemoglobin 8.2 GM/DL (14.0-18.0); Immature Granulocytes % 0.3 %; Immature Granulocytes Absolute 0.01 #; Lymphocytes # 1.1 10*3/uL (1.4-4.0); Lymphocytes % 26.6 % (21.2-54.2); Mean Corpuscular HGB Conc 29.9 GM/DL (32-36); Mean Corpuscular Volume 93.5 FL (87-102); Mean Platelet Volume 12.7 FL (9.6-12.0); Monocytes % 13.5 % (1.7-12.7); Neutrophils % 53.5 % (38.7-73.9); Red Blood Count 2.93 MC/CUMM (3.8-5.5); Red Cell Distribution Width 15.9 % (9.3-17.3); White Blood Count 3.9 T/CUMM (4-12)
[2018-08-13 05:03] LABS: Calcium 7.7 MG/DL (8.5-10.1); Osmolality,Calculated 276.4 MOS/KG (273-304); Platelet Count 72 T/CUMM (130-400)
[2018-08-13 06:19] LABS: Hypochromasia 1+; Platelet Estimate Decreased
[2018-08-13] MEDS: OCTREOTIDE 500 MCG in SODIUM CHLORIDE 0.9% 100 ML IV SCH (08:59)
[2018-08-13] MEDS: PANTOPRAZOLE 40 MG VIAL IV SCH (08:59)
[2018-08-13] MEDS: CHOLECALCIFEROL 1,000 UNIT TABLET PO SCH (08:59)
[2018-08-13] MEDS: FLUTICASONE 50 MCG NASAL SPRAY 16 GM BOTTLE BOTH NARES SCH ×2 (09:01→21:19)
[2018-08-13] MEDS: TAMSULOSIN 0.4 MG CAPSULE PO SCH (21:19)
[2018-08-13] MEDS: NADOLOL 40 MG TABLET PO SCH (21:19)
[2018-08-13] MEDS: HYOSCYAMINE 0.125 MG TABLET PO PRN (22:07)
[2018-08-14 05:18] LABS: Hematocrit 27.3 VOL% (42.0-52.0); Hemoglobin 8.2 GM/DL (14.0-18.0); INR 1.1; PT Patient Result 11.4 SECS
[2018-08-14 07:56] VITALS: BP 176/74
[2018-08-14] MEDS: CHOLECALCIFEROL 1,000 UNIT TABLET PO SCH (09:03)
[2018-08-14] MEDS: PANTOPRAZOLE 40 MG VIAL IV SCH (09:03)
[2018-08-14] MEDS: FLUTICASONE 50 MCG NASAL SPRAY 16 GM BOTTLE BOTH NARES SCH (09:04)
== END 2018-08-14 12:42 | disposition home or self-care (01) | DRG 377 ==
LOC: N.ED 19:10 → N.EDINP 22:30 → SUATTDRO 22:30 → N.2E 23:16
PROVIDERS: ADMIT Internal Medicine; ATTEND Internal Medicine

== ENCOUNTER 2018-12-08 22:20 | Inpatient (IN) ==
[2018-12-09] MEDS ORDERED: SODIUM CHLORIDE 0.9% 1,000 ML IV STA (01:03)
[2018-12-09] MEDS ORDERED: ONDANSETRON 4 MG/2 ML VIAL IV STA (01:03)
[2018-12-09] MEDS ORDERED: MORPHINE 4 MG/1 ML VIAL IV STA (01:04)
[2018-12-09 02:52] LABS: Basophils % 0.7 % (0.0-0.8); Eosinophils # 0.3 10*3/uL (0.0-0.87); Eosinophils % 6.4 % (0.00-10.9); Hematocrit 28.9 VOL% (42.0-52.0); Immature Granulocytes % 0.2 %; Immature Granulocytes Absolute 0.01 #; Lymphocytes # 1.2 10*3/uL (1.4-4.0); Lymphocytes % 29.9 % (21.2-54.2); Mean Corpuscular HGB Conc 27.7 GM/DL (32-36); Mean Corpuscular Volume 88.7 FL (87-102); Mean Platelet Volume 13.5 FL (9.6-12.0); Monocytes % 12.3 % (1.7-12.7); Neutrophils % 50.5 % (38.7-73.9); Platelet Count 96 T/CUMM (130-400); Red Blood Count 3.26 MC/CUMM (3.8-5.5); Red Cell Distribution Width 18.5 % (9.3-17.3); White Blood Count 4.1 T/CUMM (4-12)
[2018-12-09 03:00] LABS: Albumin 2.8 G/DL (3.4-5.0); Bilirubin,Total 0.5 MG/DL (0.2-1.0); Calcium 8.2 MG/DL (8.5-10.1); Total Protein 6.5 G/DL (6.4-8.3)
[2018-12-09 03:04] LABS: Apearance,Urine CLEAR (Clear); Bilirubin,Urine Negative (Negative); Blood, Urine Negative (Negative); Glucose,Urine (UA) Negative (Negative); Ketones,Urine Negative (Negative); Mucus,Urine Occasional /LPF (Occasional); Nitrite,Urine Negative (Negative); Protein,Urine Negative; RBC,Urine 1 /HPF (0-4); Squamous Epithelial Cell,Urine Occasional /HPF (0-10); Urine Color Yellow (Yellow); Urine Specific Gravity 1.015 (1.001-1.035); Urine Urobilinogen < 2.0 EU/DL (0.2-1.0); WBC,Urine 9 /HPF (0-6)
[2018-12-09 03:39] LABS: Anisocytosis 1+; Hypochromasia 1+; Microcytosis 1+; Ovalocytes Slight; Platelet Estimate Decreased
[2018-12-09] MEDS: cefTRIAXone 1,000 MG in SODIUM CHLORIDE 0.9% 100 ML IV SCH (05:12)
[2018-12-09] MEDS ORDERED: NICOTINE 21 MG/24 HR PATCH TRANSDERM PRN (06:16)
[2018-12-09] MEDS: SODIUM CHLORIDE 0.9% 1,000 ML IV SCH ×3 (07:20→23:10)
[2018-12-09] MEDS: PANTOPRAZOLE 40 MG VIAL IV SCH ×2 (09:28→23:07)
[2018-12-09 18:05] LABS: Basophils % 0.3 % (0.0-0.8); Eosinophils # 0.2 10*3/uL (0.0-0.87); Eosinophils % 6.9 % (0.00-10.9); Immature Granulocytes % 0.3 %; Immature Granulocytes Absolute 0.01 #; Lymphocytes # 0.9 10*3/uL (1.4-4.0); Lymphocytes % 29.4 % (21.2-54.2); Mean Corpuscular HGB Conc 28.6 GM/DL (32-36); Mean Corpuscular Volume 87.5 FL (87-102); Mean Platelet Volume 11.4 FL (9.6-12.0); Monocytes % 9.4 % (1.7-12.7); Neutrophils % 53.7 % (38.7-73.9); Platelet Count 67 T/CUMM (130-400); Red Cell Distribution Width 18.3 % (9.3-17.3); White Blood Count 3.2 T/CUMM (4-12)
[2018-12-09] MEDS: NADOLOL 40 MG TABLET PO SCH (18:19)
[2018-12-09] MEDS ORDERED: FLUTICASONE 50 MCG NASAL SPRAY 16 GM BOTTLE BOTH NARES PRN (21:00)
[2018-12-09 21:15] LABS: Band Neutrophils 2 % (0-10); Eosinophils 6 % (0-10); Lymphocytes 25 % (20-55); Segmented Neutrophils 59 % (50-85); Total Cells Counted 100
[2018-12-09 21:16] LABS: Platelet Estimate Decreased
[2018-12-09] MEDS: TAMSULOSIN 0.4 MG CAPSULE PO SCH (23:07)
[2018-12-10 06:03] LABS: Basophils % 0.3 % (0.0-0.8); Eosinophils # 0.2 10*3/uL (0.0-0.87); Eosinophils % 7.1 % (0.00-10.9); Immature Granulocytes % 0.3 %; Immature Granulocytes Absolute 0.01 #; Lymphocytes % 34.7 % (21.2-54.2); Mean Corpuscular HGB Conc 27.9 GM/DL (32-36); Mean Corpuscular Volume 88.1 FL (87-102); Mean Platelet Volume 11.5 FL (9.6-12.0); Monocytes % 13.3 % (1.7-12.7); Neutrophils % 44.3 % (38.7-73.9); Platelet Count 68 T/CUMM (130-400); Red Blood Count 2.85 MC/CUMM (3.8-5.5); Red Cell Distribution Width 18.1 % (9.3-17.3); White Blood Count 2.9 T/CUMM (4-12)
[2018-12-10 06:28] LABS: Calcium 8.1 MG/DL (8.5-10.1); Osmolality,Calculated 283.8 MOS/KG (273-304)
[2018-12-10] MEDS: cefTRIAXone 1,000 MG in SODIUM CHLORIDE 0.9% 100 ML IV SCH (06:36)
[2018-12-10] MEDS: SODIUM CHLORIDE 0.9% 1,000 ML IV SCH ×3 (06:37→20:58)
[2018-12-10 06:39] LABS: Hematocrit 24.9 VOL% (42.0-52.0)
[2018-12-10 06:44] LABS: Band Neutrophils 3 % (0-10); Eosinophils 6 % (0-10); Lymphocytes 35 % (20-55); Segmented Neutrophils 45 % (50-85); Total Cells Counted 100
[2018-12-10 06:45] LABS: Anisocytosis 1+; Ovalocytes 1+; Platelet Estimate Decreased
[2018-12-10] MEDS: MORPHINE 4 MG/1 ML VIAL IV PRN (08:29)
[2018-12-10] MEDS: PANTOPRAZOLE 40 MG VIAL IV SCH ×2 (08:29→20:56)
[2018-12-10] MEDS ORDERED: SODIUM CHLORIDE 0.9% 1,000 ML IV PRN (09:21)
[2018-12-10] MEDS: CHOLESTYRAMINE 4 GM PACK PO SCH ×2 (12:51→21:00)
[2018-12-10 17:28] LABS: Hematocrit 28.2 VOL% (42.0-52.0)
[2018-12-10] MEDS: NADOLOL 40 MG TABLET PO SCH (20:56)
[2018-12-10] MEDS: TAMSULOSIN 0.4 MG CAPSULE PO SCH (20:56)
[2018-12-11] MEDS: SODIUM CHLORIDE 0.9% 1,000 ML IV SCH ×3 (04:10→23:30)
[2018-12-11 04:58] LABS: Basophils % 0.4 % (0.0-0.8); Eosinophils # 0.2 10*3/uL (0.0-0.87); Eosinophils % 7.9 % (0.00-10.9); Hematocrit 26.7 VOL% (42.0-52.0); Hemoglobin 7.6 GM/DL (14.0-18.0); Immature Granulocytes % 0.4 %; Immature Granulocytes Absolute 0.01 #; Lymphocytes # 0.9 10*3/uL (1.4-4.0); Lymphocytes % 32.1 % (21.2-54.2); Mean Corpuscular HGB Conc 28.5 GM/DL (32-36); Mean Corpuscular Volume 88.1 FL (87-102); Mean Platelet Volume 12.2 FL (9.6-12.0); Monocytes % 12.5 % (1.7-12.7); Neutrophils % 46.7 % (38.7-73.9); Platelet Count 64 T/CUMM (130-400); Red Blood Count 3.03 MC/CUMM (3.8-5.5); Red Cell Distribution Width 17.4 % (9.3-17.3); White Blood Count 2.7 T/CUMM (4-12)
[2018-12-11 05:24] LABS: Ferritin 5.9 ng/ml (26-388)
[2018-12-11 05:32] LABS: Folate 12.6 NG/ML (5.4-24.0); Vitamin B12 617 PG/ML (211-911)
[2018-12-11 06:35] LABS: Sedimentation Rate-Westergren 16 MM/HR (0-15)
[2018-12-11 09:08] LABS: Hemoglobin A1 (Alkaline) 97.5 % (96.5-98.5); Hemoglobin A2 (Alkaline) 2.5 % (1.5-3.5)
[2018-12-11] MEDS: PANTOPRAZOLE 40 MG VIAL IV SCH (09:39)
[2018-12-11] MEDS: cefTRIAXone 2,000 MG in SYRINGE 1 EACH IV SCH (09:39)
[2018-12-11] MEDS: CHOLESTYRAMINE 4 GM PACK PO SCH ×2 (10:14→20:02)
[2018-12-11] MEDS ORDERED: IRON SUCROSE 300 MG in SODIUM CHLORIDE 0.9% 100 ML IV ONE (12:59)
[2018-12-11] MEDS: ONDANSETRON 4 MG/2 ML VIAL IV PRN ×2 (13:43→20:02)
[2018-12-11] MEDS: PANTOPRAZOLE 40 MG TABLET PO SCH (17:47)
[2018-12-11] MEDS: TAMSULOSIN 0.4 MG CAPSULE PO SCH (20:02)
[2018-12-11] MEDS: MORPHINE 4 MG/1 ML VIAL IV PRN (20:02)
[2018-12-11] MEDS: NADOLOL 40 MG TABLET PO SCH (20:02)
[2018-12-12] MEDS: ONDANSETRON 4 MG/2 ML VIAL IV PRN (02:29)
[2018-12-12] MEDS: MORPHINE 4 MG/1 ML VIAL IV PRN (02:33)
[2018-12-12] MEDS ORDERED: SODIUM PHOSPHATE ENEMA 133 ML BOTTLE RECTAL ONE (06:00)
[2018-12-12] MEDS ORDERED: LACTATED RINGERS 1,000 ML IV SCH (08:00)
[2018-12-12] MEDS ORDERED: PHENYLEPHRINE 1 MG/10 ML SYRINGE IV ONE (09:00)
[2018-12-12] MEDS ORDERED: LIDOCAINE 2% 5 ML VIAL ONE (09:00)
[2018-12-12] MEDS ORDERED: PROPOFOL 200 MG/20 ML VIAL IV ONE (09:00)
[2018-12-12] MEDS: cefTRIAXone 2,000 MG in SYRINGE 1 EACH IV SCH (09:21)
[2018-12-12] MEDS: SODIUM CHLORIDE 0.9% 1,000 ML IV SCH ×2 (09:27→17:26)
[2018-12-12] MEDS: CHOLESTYRAMINE 4 GM PACK PO SCH ×2 (09:28→21:13)
[2018-12-12] MEDS: PANTOPRAZOLE 40 MG TABLET PO SCH ×2 (09:28→17:27)
[2018-12-12] MEDS: DICYCLOMINE 10 MG CAPSULE PO SCH ×2 (17:27→21:14)
[2018-12-12] MEDS: NADOLOL 40 MG TABLET PO SCH (21:13)
[2018-12-12] MEDS: TAMSULOSIN 0.4 MG CAPSULE PO SCH (21:14)
[2018-12-13] MEDS: SODIUM CHLORIDE 0.9% 1,000 ML IV SCH ×2 (02:06→08:13)
[2018-12-13] MEDS: DICYCLOMINE 10 MG CAPSULE PO SCH (08:13)
[2018-12-13] MEDS: cefTRIAXone 2,000 MG in SYRINGE 1 EACH IV SCH (08:13)
[2018-12-13] MEDS: CHOLESTYRAMINE 4 GM PACK PO SCH ×2 (08:13→08:20)
[2018-12-13] MEDS: PANTOPRAZOLE 40 MG TABLET PO SCH (08:13)
[2018-12-13] MEDS ORDERED: CHOLESTYRAMINE 4 GM PACK PO PRN (10:04)
[2018-12-13 11:59] LABS: Basophils % 0.7 % (0.0-0.8); Eosinophils # 0.2 10*3/uL (0.0-0.87); Eosinophils % 5.8 % (0.00-10.9); Hematocrit 27.5 VOL% (42.0-52.0); Immature Granulocytes % 0.7 %; Immature Granulocytes Absolute 0.02 #; Lymphocytes # 0.8 10*3/uL (1.4-4.0); Lymphocytes % 28.3 % (21.2-54.2); Mean Corpuscular HGB Conc 29.1 GM/DL (32-36); Mean Corpuscular Volume 85.9 FL (87-102); Mean Platelet Volume 12.8 FL (9.6-12.0); Monocytes % 12.7 % (1.7-12.7); Neutrophils % 51.8 % (38.7-73.9); Platelet Count 58 T/CUMM (130-400); Red Cell Distribution Width 17.5 % (9.3-17.3); White Blood Count 2.8 T/CUMM (4-12)
[2018-12-13 12:26] LABS: Atypical Lymphocytes Few; Band Neutrophils 1 % (0-10); Eosinophils 7 % (0-10); Hypochromasia 1+; Lymphocytes 25 % (20-55); Microcytosis 1+; Ovalocytes Slight; Segmented Neutrophils 62 % (50-85); Total Cells Counted 100
[2018-12-13 12:27] LABS: Platelet Estimate Decreased
[2018-12-13 12:39] VITALS: BP 115/66
[2018-12-13] MEDS ORDERED: FERROUS SULFATE 325 MG TABLET PO SCH (21:00)
== END 2018-12-13 13:26 | disposition home or self-care (01) | DRG 433 ==
LOC: N.ED 22:20 → N.EDINP 22:20 → SUATTDRO 12-09 06:16 → N.5E 12-09 16:24
PROVIDERS: ADMIT Internal Medicine; ATTEND Hospitalist

== ENCOUNTER 2018-12-16 07:21 | Observation (INO) ==
[2018-12-16 09:15] LABS: Basophils % 0.6 % (0.0-0.8); Eosinophils # 0.2 10*3/uL (0.0-0.87); Eosinophils % 6.4 % (0.00-10.9); Hematocrit 29.4 VOL% (42.0-52.0); Hemoglobin 8.5 GM/DL (14.0-18.0); Immature Granulocytes % 0.6 %; Immature Granulocytes Absolute 0.02 #; Lymphocytes # 1.3 10*3/uL (1.4-4.0); Mean Corpuscular HGB Conc 28.9 GM/DL (32-36); Monocytes % 11.1 % (1.7-12.7); Neutrophils % 45.3 % (38.7-73.9); Platelet Count 64 T/CUMM (130-400); Red Blood Count 3.34 MC/CUMM (3.8-5.5); Red Cell Distribution Width 19.3 % (9.3-17.3); White Blood Count 3.6 T/CUMM (4-12)
[2018-12-16 09:17] LABS: Partial Thromboplastin Time 24.8 SECS (20.8-36.0)
[2018-12-16 09:22] LABS: Albumin 2.7 G/DL (3.4-5.0); Bilirubin,Total 0.5 MG/DL (0.2-1.0); Calcium 8.4 MG/DL (8.5-10.1); Osmolality,Calculated 283.8 MOS/KG (273-304); Total Protein 6.1 G/DL (6.4-8.3)
[2018-12-16 09:33] LABS: Eosinophils 8 % (0-10); Lymphocytes 31 % (20-55); Segmented Neutrophils 54 % (50-85); Total Cells Counted 100
[2018-12-16 09:34] LABS: Hypochromasia 1+; Microcytosis 1+; Platelet Estimate Decreased
[2018-12-16 09:35] LABS: Atypical Lymphocytes Few
[2018-12-16] MEDS ORDERED: MORPHINE 4 MG/1 ML VIAL IV PRN (11:57)
[2018-12-16] MEDS ORDERED: ONDANSETRON 4 MG/2 ML VIAL IV PRN (11:57)
[2018-12-16] MEDS: SODIUM CHLORIDE 0.9% 1,000 ML IV SCH ×2 (12:39→21:55)
[2018-12-16 13:38] LABS: Hematocrit 29.8 VOL% (42.0-52.0); Hemoglobin 8.7 GM/DL (14.0-18.0)
[2018-12-16 20:23] LABS: Hematocrit 29.3 VOL% (42.0-52.0); Hemoglobin 8.6 GM/DL (14.0-18.0)
[2018-12-16] MEDS: PANTOPRAZOLE 40 MG VIAL IV SCH (21:54)
[2018-12-16] MEDS: TAMSULOSIN 0.4 MG CAPSULE PO SCH (21:55)
[2018-12-16] MEDS: NADOLOL 40 MG TABLET PO SCH (21:55)
[2018-12-17 05:49] LABS: Basophils % 0.6 % (0.0-0.8); Eosinophils # 0.3 10*3/uL (0.0-0.87); Eosinophils % 7.2 % (0.00-10.9); Hematocrit 26.9 VOL% (42.0-52.0); Hemoglobin 7.7 GM/DL (14.0-18.0); Immature Granulocytes % 0.6 %; Immature Granulocytes Absolute 0.02 #; Lymphocytes # 1.4 10*3/uL (1.4-4.0); Lymphocytes % 37.7 % (21.2-54.2); Mean Corpuscular HGB Conc 28.6 GM/DL (32-36); Mean Corpuscular Volume 89.7 FL (87-102); Mean Platelet Volume 11.9 FL (9.6-12.0); Monocytes % 10.5 % (1.7-12.7); Neutrophils % 43.4 % (38.7-73.9); Red Cell Distribution Width 19.5 % (9.3-17.3); White Blood Count 3.6 T/CUMM (4-12)
[2018-12-17 06:00] LABS: Platelet Count 63 T/CUMM (130-400)
[2018-12-17 06:05] LABS: Calcium 8.1 MG/DL (8.5-10.1); Osmolality,Calculated 284.8 MOS/KG (273-304)
[2018-12-17 06:08] LABS: Platelet Estimate Decreased
[2018-12-17 06:09] LABS: Anisocytosis 2+; Macrocytosis 1+; Microcytosis 1+
[2018-12-17] MEDS: SODIUM CHLORIDE 0.9% 1,000 ML IV SCH ×2 (07:59→22:08)
[2018-12-17] MEDS: PANTOPRAZOLE 40 MG VIAL IV SCH ×2 (08:00→20:53)
[2018-12-17] MEDS ORDERED: SODIUM CHLORIDE 0.9% 1,000 ML IV PRN (09:11)
[2018-12-17] MEDS ORDERED: FLUTICASONE 50 MCG NASAL SPRAY 16 GM BOTTLE BOTH NARES PRN (09:13)
[2018-12-17 09:40] LABS: Hematocrit 27.7 VOL% (42.0-52.0); Hemoglobin 8.2 GM/DL (14.0-18.0)
[2018-12-17] MEDS ORDERED: PROPOFOL 200 MG/20 ML VIAL IV ONE (12:00)
[2018-12-17] MEDS ORDERED: LIDOCAINE 2% 5 ML VIAL ONE (12:00)
[2018-12-17] MEDS: CHOLESTYRAMINE 4 GM PACK PO SCH ×2 (12:09→20:54)
[2018-12-17] MEDS: DICYCLOMINE 10 MG CAPSULE PO SCH ×2 (14:26→20:55)
[2018-12-17] MEDS: NADOLOL 40 MG TABLET PO SCH (20:00)
[2018-12-17] MEDS: TAMSULOSIN 0.4 MG CAPSULE PO SCH (20:53)
[2018-12-17] MEDS: FERROUS SULFATE 325 MG TABLET PO SCH (20:54)
[2018-12-18 05:03] LABS: Basophils % 0.6 % (0.0-0.8); Eosinophils # 0.2 10*3/uL (0.0-0.87); Eosinophils % 5.3 % (0.00-10.9); Hemoglobin 8.4 GM/DL (14.0-18.0); Immature Granulocytes % 0.3 %; Immature Granulocytes Absolute 0.01 #; Lymphocytes # 1.4 10*3/uL (1.4-4.0); Lymphocytes % 37.6 % (21.2-54.2); Mean Corpuscular Volume 91.2 FL (87-102); Mean Platelet Volume 11.8 FL (9.6-12.0); Neutrophils % 46.2 % (38.7-73.9); Platelet Count 62 T/CUMM (130-400); Red Blood Count 3.18 MC/CUMM (3.8-5.5); Red Cell Distribution Width 20.2 % (9.3-17.3); White Blood Count 3.6 T/CUMM (4-12)
[2018-12-18 05:26] LABS: Calcium 8.3 MG/DL (8.5-10.1); Osmolality,Calculated 286.7 MOS/KG (273-304)
[2018-12-18 05:38] LABS: Hypochromasia 1+; Ovalocytes Slight; Platelet Estimate Decreased
[2018-12-18 05:39] LABS: Microcytosis 1+
[2018-12-18] MEDS: SODIUM CHLORIDE 0.9% 1,000 ML IV SCH ×2 (06:51→14:22)
[2018-12-18] MEDS: CHOLESTYRAMINE 4 GM PACK PO SCH ×2 (07:59→20:55)
[2018-12-18] MEDS: DICYCLOMINE 10 MG CAPSULE PO SCH ×3 (07:59→20:55)
[2018-12-18] MEDS: FERROUS SULFATE 325 MG TABLET PO SCH ×2 (07:59→20:55)
[2018-12-18] MEDS: PANTOPRAZOLE 40 MG VIAL IV SCH ×2 (08:00→20:55)
[2018-12-18] MEDS: TAMSULOSIN 0.4 MG CAPSULE PO SCH (20:55)
[2018-12-18] MEDS: NADOLOL 40 MG TABLET PO SCH (20:55)
[2018-12-19 05:32] LABS: Basophils % 0.6 % (0.0-0.8); Eosinophils # 0.2 10*3/uL (0.0-0.87); Eosinophils % 5.4 % (0.00-10.9); Hematocrit 30.8 VOL% (42.0-52.0); Immature Granulocytes % 0.6 %; Immature Granulocytes Absolute 0.02 #; Lymphocytes # 1.3 10*3/uL (1.4-4.0); Lymphocytes % 39.8 % (21.2-54.2); Mean Corpuscular HGB Conc 28.9 GM/DL (32-36); Mean Corpuscular Volume 91.1 FL (87-102); Mean Platelet Volume 12.4 FL (9.6-12.0); Monocytes % 8.7 % (1.7-12.7); Neutrophils % 44.9 % (38.7-73.9); Platelet Count 62 T/CUMM (130-400); Red Blood Count 3.38 MC/CUMM (3.8-5.5); Red Cell Distribution Width 20.4 % (9.3-17.3); White Blood Count 3.3 T/CUMM (4-12)
[2018-12-19 05:59] LABS: Calcium 8.5 MG/DL (8.5-10.1); Osmolality,Calculated 281.1 MOS/KG (273-304)
[2018-12-19 06:05] LABS: Hemoglobin 8.9 GM/DL (14.0-18.0)
[2018-12-19 06:21] LABS: Atypical Lymphocytes Few; Eosinophils 7 % (0-10); Hypochromasia 1+; Lymphocytes 40 % (20-55); Microcytosis 1+; Ovalocytes Slight; Platelet Estimate Decreased; Segmented Neutrophils 45 % (50-85); Total Cells Counted 100
[2018-12-19] MEDS: PANTOPRAZOLE 40 MG VIAL IV SCH (08:39)
[2018-12-19] MEDS: DICYCLOMINE 10 MG CAPSULE PO SCH (08:39)
[2018-12-19] MEDS: FERROUS SULFATE 325 MG TABLET PO SCH (08:39)
[2018-12-19] MEDS: CHOLESTYRAMINE 4 GM PACK PO SCH (08:42)
[2018-12-19] MEDS ORDERED: traMADol 50 MG TABLET PO PRN (10:07)
[2018-12-19 12:03] VITALS: BP 132/53
[2018-12-19] MEDS ORDERED: PANTOPRAZOLE 40 MG TABLET PO SCH (21:00)
== END 2018-12-19 13:15 | disposition home or self-care (01) ==
LOC: N.EDINP 07:21 → N.ED 07:21 → N.5E 11:41
PROVIDERS: ADMIT Hospitalist; ATTEND Hospitalist

== ENCOUNTER 2019-03-29 14:16 | Inpatient (IN) ==
[2019-03-29] MEDS ORDERED: ACETAMINOPHEN 500 MG TABLET PO STA (15:25)
[2019-03-29 15:52] LABS: Basophils % 0.2 % (0.0-0.8); Eosinophils # 0.2 10*3/uL (0.0-0.87); Eosinophils % 2.8 % (0.00-10.9); Hematocrit 38.4 VOL% (42.0-52.0); Hemoglobin 12.6 GM/DL (14.0-18.0); Immature Granulocytes % 0.6 %; Immature Granulocytes Absolute 0.03 #; Lymphocytes # 1.1 10*3/uL (1.4-4.0); Mean Corpuscular HGB Conc 32.8 GM/DL (32-36); Mean Corpuscular Volume 103.8 FL (87-102); Mean Platelet Volume 12.9 FL (9.6-12.0); Monocytes % 12.8 % (1.7-12.7); Neutrophils % 63.6 % (38.7-73.9); Platelet Count 75 T/CUMM (130-400); Red Cell Distribution Width 16.2 % (9.3-17.3); White Blood Count 5.5 T/CUMM (4-12)
[2019-03-29 17:11] LABS: Albumin 2.9 G/DL (3.4-5.0); Bilirubin,Total 0.9 MG/DL (0.2-1.0); Osmolality,Calculated 275.5 MOS/KG (273-304); Total Protein 6.3 G/DL (6.4-8.3)
[2019-03-29 17:23] LABS: Apearance,Urine CLEAR (Clear); Bilirubin,Urine Negative (Negative); Blood, Urine Small mg/dL (Negative); Glucose,Urine (UA) Negative (Negative); Ketones,Urine Negative (Negative); Mucus,Urine Occasional /LPF (Occasional); Nitrite,Urine Negative (Negative); Protein,Urine Negative; RBC,Urine 5 /HPF (0-4); Squamous Epithelial Cell,Urine Occasional /HPF (0-10); Urine Color Yellow (Yellow); Urine Specific Gravity 1.017 (1.001-1.035); Urine Urobilinogen < 2.0 EU/DL (0.2-1.0); WBC,Urine 1 /HPF (0-6)
[2019-03-29 17:50] LABS: Platelet Estimate Adequate
[2019-03-29 17:53] LABS: Polychromasia 1+
[2019-03-29 17:54] LABS: Anisocytosis 2+
[2019-03-29 18:07] LABS: Hypochromasia 1+; Spherocytes Few
[2019-03-29 18:08] LABS: Macrocytosis 1+
[2019-03-29] MEDS ORDERED: DOCUSATE SODIUM 100 MG CAPSULE PO PRN (18:16)
[2019-03-29] MEDS ORDERED: FLUTICASONE 50 MCG NASAL SPRAY 16 GM BOTTLE BOTH NARES PRN (18:21)
[2019-03-29] MEDS ORDERED: cefTRIAXone 1,000 MG VIAL ONE (19:10)
[2019-03-29] MEDS: cefTRIAXone 2,000 MG in SYRINGE 1 EACH IV SCH (19:21)
[2019-03-29] MEDS: traMADol 50 MG TABLET PO PRN (19:24)
[2019-03-29] MEDS: NADOLOL 40 MG TABLET PO SCH (21:03)
[2019-03-29] MEDS: TAMSULOSIN 0.4 MG CAPSULE PO SCH (21:04)
[2019-03-29] MEDS: PANTOPRAZOLE 40 MG TABLET PO SCH (21:04)
[2019-03-29] MEDS: DICYCLOMINE 10 MG CAPSULE PO SCH (21:05)
[2019-03-29] MEDS: FERROUS SULFATE 325 MG TABLET PO SCH (21:06)
[2019-03-29] MEDS: ACETAMINOPHEN 325 MG TABLET PO PRN (21:06)
[2019-03-29] MEDS: CHOLESTYRAMINE 4 GM PACK PO SCH (21:14)
[2019-03-30] MEDS: ACETAMINOPHEN 325 MG TABLET PO PRN ×2 (03:50→20:18)
[2019-03-30 05:11] LABS: Basophils % 0.4 % (0.0-0.8); Eosinophils # 0.1 10*3/uL (0.0-0.87); Eosinophils % 2.9 % (0.00-10.9); Hematocrit 34.6 VOL% (42.0-52.0); Hemoglobin 11.4 GM/DL (14.0-18.0); Immature Granulocytes % 0.6 %; Immature Granulocytes Absolute 0.03 #; Lymphocytes # 1.3 10*3/uL (1.4-4.0); Lymphocytes % 26.1 % (21.2-54.2); Mean Corpuscular HGB Conc 32.9 GM/DL (32-36); Mean Corpuscular Volume 102.1 FL (87-102); Monocytes % 15.9 % (1.7-12.7); Neutrophils % 54.1 % (38.7-73.9); Platelet Count 64 T/CUMM (130-400); Red Blood Count 3.39 MC/CUMM (3.8-5.5); Red Cell Distribution Width 16.2 % (9.3-17.3); White Blood Count 4.8 T/CUMM (4-12)
[2019-03-30 05:38] LABS: Atypical Lymphocytes Few; Band Neutrophils 1 % (0-10); Calcium 7.7 MG/DL (8.5-10.1); Eosinophils 1 % (0-10); Lymphocytes 23 % (20-55); Osmolality,Calculated 274.7 MOS/KG (273-304); Segmented Neutrophils 64 % (50-85); Total Cells Counted 100
[2019-03-30 05:39] LABS: Hypochromasia 1+; Macrocytosis 1+
[2019-03-30 05:40] LABS: Ovalocytes Slight; Platelet Estimate Decreased
[2019-03-30 05:41] LABS: Tear Drop Cells Slight
[2019-03-30] MEDS: FERROUS SULFATE 325 MG TABLET PO SCH ×2 (08:31→20:19)
[2019-03-30] MEDS: PANTOPRAZOLE 40 MG TABLET PO SCH ×2 (08:31→20:18)
[2019-03-30] MEDS: traMADol 50 MG TABLET PO PRN ×2 (08:31→21:43)
[2019-03-30] MEDS: DICYCLOMINE 10 MG CAPSULE PO SCH ×3 (08:31→20:19)
[2019-03-30] MEDS: ONDANSETRON 4 MG/2 ML VIAL IV PRN ×2 (08:32→13:08)
[2019-03-30] MEDS: CHOLESTYRAMINE 4 GM PACK PO SCH ×2 (08:32→20:23)
[2019-03-30] MEDS: AZITHROMYCIN INJ 500 MG in SODIUM CHLORIDE 0.9% 250 ML IV SCH (08:36)
[2019-03-30] MEDS: cefTRIAXone 2,000 MG in SYRINGE 1 EACH IV SCH (10:28)
[2019-03-30] MEDS ORDERED: KETOROLAC 15 MG/1 ML VIAL IV ONE (12:33)
[2019-03-30] MEDS: NADOLOL 40 MG TABLET PO SCH (20:18)
[2019-03-30] MEDS: TAMSULOSIN 0.4 MG CAPSULE PO SCH (20:19)
[2019-03-31 06:06] LABS: Basophils % 0.3 % (0.0-0.8); Eosinophils # 0.2 10*3/uL (0.0-0.87); Eosinophils % 5.1 % (0.00-10.9); Hematocrit 34.8 VOL% (42.0-52.0); Hemoglobin 11.4 GM/DL (14.0-18.0); Immature Granulocytes % 0.5 %; Immature Granulocytes Absolute 0.02 #; Lymphocytes # 0.9 10*3/uL (1.4-4.0); Lymphocytes % 23.9 % (21.2-54.2); Mean Corpuscular HGB Conc 32.8 GM/DL (32-36); Mean Corpuscular Volume 102.7 FL (87-102); Mean Platelet Volume 12.8 FL (9.6-12.0); Monocytes % 18.8 % (1.7-12.7); Neutrophils % 51.4 % (38.7-73.9); Platelet Count 55 T/CUMM (130-400); Red Blood Count 3.39 MC/CUMM (3.8-5.5); Red Cell Distribution Width 15.7 % (9.3-17.3); White Blood Count 3.7 T/CUMM (4-12)
[2019-03-31 06:33] LABS: Band Neutrophils 3 % (0-10); Eosinophils 3 % (0-10); Hypochromasia 1+; Lymphocytes 27 % (20-55); Macrocytosis Slight; Segmented Neutrophils 50 % (50-85); Tear Drop Cells Slight; Total Cells Counted 100
[2019-03-31 06:34] LABS: Giant Platelets Few; Ovalocytes Slight; Platelet Estimate Decreased
[2019-03-31 07:10] LABS: Calcium 7.9 MG/DL (8.5-10.1); Osmolality,Calculated 266.4 MOS/KG (273-304)
[2019-03-31] MEDS: DICYCLOMINE 10 MG CAPSULE PO SCH ×3 (08:59→21:19)
[2019-03-31] MEDS: FERROUS SULFATE 325 MG TABLET PO SCH ×2 (08:59→21:19)
[2019-03-31] MEDS: PANTOPRAZOLE 40 MG TABLET PO SCH ×2 (08:59→21:20)
[2019-03-31] MEDS: cefTRIAXone 2,000 MG in SYRINGE 1 EACH IV SCH (09:03)
[2019-03-31] MEDS: AZITHROMYCIN INJ 500 MG in SODIUM CHLORIDE 0.9% 250 ML IV SCH (09:07)
[2019-03-31] MEDS: CHOLESTYRAMINE 4 GM PACK PO SCH ×2 (10:37→21:26)
[2019-03-31] MEDS ORDERED: WHITE PETROLATUM 30 GM TUBE TOP PRN (10:58)
[2019-03-31] MEDS: traMADol 50 MG TABLET PO PRN ×2 (13:10→21:25)
[2019-03-31] MEDS ORDERED: LEVOFLOXACIN INJ 750 MG in PREMIX 1 EACH IV SCH (15:00)
[2019-03-31] MEDS: NADOLOL 40 MG TABLET PO SCH (18:38)
[2019-03-31] MEDS: TAMSULOSIN 0.4 MG CAPSULE PO SCH (18:39)
[2019-04-01 05:37] LABS: Basophils % 0.3 % (0.0-0.8); Eosinophils # 0.2 10*3/uL (0.0-0.87); Eosinophils % 5.6 % (0.00-10.9); Hematocrit 34.9 VOL% (42.0-52.0); Hemoglobin 11.3 GM/DL (14.0-18.0); Immature Granulocytes % 0.3 %; Immature Granulocytes Absolute 0.01 #; Lymphocytes # 1.2 10*3/uL (1.4-4.0); Lymphocytes % 30.8 % (21.2-54.2); Mean Corpuscular HGB Conc 32.4 GM/DL (32-36); Mean Corpuscular Volume 103.6 FL (87-102); Mean Platelet Volume 12.7 FL (9.6-12.0); Monocytes % 19.6 % (1.7-12.7); Neutrophils % 43.4 % (38.7-73.9); Platelet Count 63 T/CUMM (130-400); Red Blood Count 3.37 MC/CUMM (3.8-5.5); Red Cell Distribution Width 15.2 % (9.3-17.3); White Blood Count 3.7 T/CUMM (4-12)
[2019-04-01 05:58] LABS: Calcium 7.8 MG/DL (8.5-10.1); Osmolality,Calculated 274.5 MOS/KG (273-304)
[2019-04-01 07:29] LABS: Band Neutrophils 9 % (0-10); Eosinophils 6 % (0-10); Lymphocytes 30 % (20-55); Segmented Neutrophils 40 % (50-85); Total Cells Counted 100
[2019-04-01 07:30] LABS: Anisocytosis Slight; Macrocytosis 1+; Platelet Estimate Decreased
[2019-04-01] MEDS: PANTOPRAZOLE 40 MG TABLET PO SCH (08:36)
[2019-04-01] MEDS: FERROUS SULFATE 325 MG TABLET PO SCH (08:37)
[2019-04-01] MEDS: CHOLESTYRAMINE 4 GM PACK PO SCH (08:37)
[2019-04-01] MEDS: DICYCLOMINE 10 MG CAPSULE PO SCH (08:37)
[2019-04-01] MEDS: cefTRIAXone 2,000 MG in SYRINGE 1 EACH IV SCH (08:37)
[2019-04-01] MEDS: ACETAMINOPHEN 325 MG TABLET PO PRN (10:06)
[2019-04-01 11:47] VITALS: BP 130/50
== END 2019-04-01 13:00 | disposition home or self-care (01) | DRG 194 ==
LOC: N.ED 14:16 → N.EDINP 18:16 → N.2E 20:25
PROVIDERS: ADMIT Hospitalist; ATTEND Hospitalist

== ENCOUNTER 2019-09-26 20:04 | Inpatient (IN) ==
[2019-09-26] MEDS ORDERED: PANTOPRAZOLE 40 MG VIAL IV STA (20:34)
[2019-09-26 21:29] LABS: Basophils % 0.6 % (0.0-0.8); Eosinophils # 0.3 10*3/uL (0.0-0.87); Eosinophils % 5.7 % (0.00-10.9); Hemoglobin 9.3 GM/DL (14.0-18.0); Immature Granulocytes % 0.6 %; Immature Granulocytes Absolute 0.03 #; Lymphocytes # 1.3 10*3/uL (1.4-4.0); Mean Corpuscular Volume 106.8 FL (87-102); Mean Platelet Volume 12.4 FL (9.6-12.0); Monocytes % 13.3 % (1.7-12.7); Neutrophils % 54.8 % (38.7-73.9); Platelet Count 88 T/CUMM (130-400); Red Blood Count 2.81 MC/CUMM (3.8-5.5); Red Cell Distribution Width 14.1 % (9.3-17.3); White Blood Count 5.1 T/CUMM (4-12)
[2019-09-26 21:37] LABS: PT Patient Result 10.9 SECS (9.8-11.9)
[2019-09-26 21:39] LABS: Albumin 2.4 G/DL (3.4-5.0); Bilirubin,Total 0.6 MG/DL (0.2-1.0); Osmolality,Calculated 273.7 MOS/KG (273-304)
[2019-09-26 22:20] LABS: Hypochromasia 1+; Macrocytosis 2+; Platelet Estimate Adequate
[2019-09-26 22:21] LABS: Anisocytosis 1+; Polychromasia 1+
[2019-09-27] MEDS ORDERED: FLUTICASONE 50 MCG NASAL SPRAY 16 GM BOTTLE BOTH NARES PRN (01:13)
[2019-09-27] MEDS ORDERED: MAGNESIUM SULF RIDER 2 GM in PREMIX 1 EACH IV PRN (01:13)
[2019-09-27] MEDS ORDERED: MAGNESIUM SULF RIDER 4 GM in PREMIX 1 EACH IV PRN (01:13)
[2019-09-27] MEDS ORDERED: ONDANSETRON 4 MG/2 ML VIAL IV PRN (01:13)
[2019-09-27] MEDS: POTASSIUM CHLORIDE 20 MEQ TABLET PO PRN ×6 (01:40→15:35)
[2019-09-27 01:56] LABS: Basophils % 0.3 % (0.0-0.8); Eosinophils # 0.3 10*3/uL (0.0-0.87); Eosinophils % 5.3 % (0.00-10.9); Immature Granulocytes % 0.3 %; Immature Granulocytes Absolute 0.02 #; Lymphocytes # 1.5 10*3/uL (1.4-4.0); Lymphocytes % 24.9 % (21.2-54.2); Mean Platelet Volume 12.1 FL (9.6-12.0); Neutrophils % 57.2 % (38.7-73.9); Platelet Count 83 T/CUMM (130-400); Red Blood Count 2.71 MC/CUMM (3.8-5.5); Red Cell Distribution Width 14.2 % (9.3-17.3); White Blood Count 5.8 T/CUMM (4-12)
[2019-09-27 02:18] LABS: Albumin 2.2 G/DL (3.4-5.0); Bilirubin,Total 0.6 MG/DL (0.2-1.0); Calcium 7.8 MG/DL (8.5-10.1); Total Protein 5.7 G/DL (6.4-8.3)
[2019-09-27] MEDS: guaiFENesin 200 MG/10 ML UDCUP PO PRN ×3 (02:42→20:57)
[2019-09-27 08:20] LABS: Hematocrit 26.9 VOL% (42.0-52.0); Hemoglobin 8.6 GM/DL (14.0-18.0)
[2019-09-27] MEDS ORDERED: [UNRECOGNIZED DRUG - OTHER] PO SCH (09:00)
[2019-09-27] MEDS: PANTOPRAZOLE 40 MG VIAL IV SCH ×2 (10:10→20:58)
[2019-09-27 13:21] LABS: Hematocrit 29.4 VOL% (42.0-52.0); Hemoglobin 9.1 GM/DL (14.0-18.0)
[2019-09-27 19:19] LABS: Hematocrit 27.5 VOL% (42.0-52.0); Hemoglobin 8.5 GM/DL (14.0-18.0)
[2019-09-27] MEDS: TAMSULOSIN 0.4 MG CAPSULE PO SCH (20:59)
[2019-09-28] MEDS: POTASSIUM CHLORIDE 20 MEQ TABLET PO PRN (00:46)
[2019-09-28] MEDS: guaiFENesin 200 MG/10 ML UDCUP PO PRN ×2 (01:04→21:07)
[2019-09-28 05:25] LABS: Basophils % 0.5 % (0.0-0.8); Eosinophils # 0.3 10*3/uL (0.0-0.87); Eosinophils % 6.9 % (0.00-10.9); Hematocrit 26.9 VOL% (42.0-52.0); Hemoglobin 8.5 GM/DL (14.0-18.0); Immature Granulocytes % 0.3 %; Immature Granulocytes Absolute 0.01 #; Lymphocytes # 1.2 10*3/uL (1.4-4.0); Lymphocytes % 31.2 % (21.2-54.2); Mean Corpuscular HGB Conc 31.6 GM/DL (32-36); Mean Corpuscular Volume 105.5 FL (87-102); Mean Platelet Volume 11.7 FL (9.6-12.0); Monocytes % 10.4 % (1.7-12.7); Neutrophils % 50.7 % (38.7-73.9); Platelet Count 73 T/CUMM (130-400); Red Blood Count 2.55 MC/CUMM (3.8-5.5); Red Cell Distribution Width 14.4 % (9.3-17.3); White Blood Count 3.8 T/CUMM (4-12)
[2019-09-28 05:44] LABS: Albumin 2.1 G/DL (3.4-5.0); Bilirubin,Total 0.9 MG/DL (0.2-1.0); Calcium 7.7 MG/DL (8.5-10.1); Total Protein 5.3 G/DL (6.4-8.3)
[2019-09-28 05:48] LABS: Eosinophils 5 % (0-10); Hypochromasia 1+; Lymphocytes 24 % (20-55); Platelet Estimate Decreased; Segmented Neutrophils 62 % (50-85); Total Cells Counted 100
[2019-09-28] MEDS ORDERED: LACTATED RINGERS 1,000 ML IV SCH (07:00)
[2019-09-28] MEDS ORDERED: propofoL 200 MG/20 ML VIAL IV ONE (09:00)
[2019-09-28] MEDS ORDERED: LIDOCAINE 2% 5 ML VIAL ONE (09:00)
[2019-09-28] MEDS ORDERED: BENZONATATE 100 MG CAPSULE PO PRN (09:58)
[2019-09-28] MEDS: PANTOPRAZOLE 40 MG VIAL IV SCH ×2 (11:20→21:07)
[2019-09-28] MEDS ORDERED: TISSUE ADHESIVE 1 EACH APPLICATOR TOP ONE (14:11)
[2019-09-28 14:52] LABS: RBC,Peritoneal Fluid 102 T/CUMM
[2019-09-28 15:05] LABS: Neutrophils,Peritoneal Fluid 73 %
[2019-09-28] MEDS: TAMSULOSIN 0.4 MG CAPSULE PO SCH (18:56)
[2019-09-29 05:38] LABS: Basophils % 0.6 % (0.0-0.8); Eosinophils # 0.2 10*3/uL (0.0-0.87); Eosinophils % 3.5 % (0.00-10.9); Hematocrit 30.8 VOL% (42.0-52.0); Hemoglobin 9.5 GM/DL (14.0-18.0); Immature Granulocytes % 0.4 %; Immature Granulocytes Absolute 0.02 #; Lymphocytes # 1.1 10*3/uL (1.4-4.0); Lymphocytes % 23.5 % (21.2-54.2); Mean Corpuscular HGB Conc 30.8 GM/DL (32-36); Mean Corpuscular Volume 107.7 FL (87-102); Mean Platelet Volume 12.4 FL (9.6-12.0); Monocytes % 9.6 % (1.7-12.7); Neutrophils % 62.4 % (38.7-73.9); Platelet Count 83 T/CUMM (130-400); Red Blood Count 2.86 MC/CUMM (3.8-5.5); Red Cell Distribution Width 13.8 % (9.3-17.3); White Blood Count 4.8 T/CUMM (4-12)
[2019-09-29 06:00] LABS: Hypochromasia 1+; Ovalocytes Slight; Platelet Estimate Decreased
[2019-09-29 06:22] LABS: Calcium 8.2 MG/DL (8.5-10.1); Ferritin 15.6 ng/ml (26-388); Osmolality,Calculated 270.8 MOS/KG (273-304)
[2019-09-29 06:30] LABS: Sedimentation Rate-Westergren 37 MM/HR (0-15)
[2019-09-29 07:12] LABS: Folate 15.6 NG/ML (5.4-24.0); Vitamin B12 1161 PG/ML (211-911)
[2019-09-29] MEDS ORDERED: LORATADINE 10 MG TABLET PO SCH (09:00)
[2019-09-29 09:11] LABS: Hemoglobin A1 (Alkaline) 97.7 % (96.5-98.5); Hemoglobin A2 (Alkaline) 2.3 % (1.5-3.5)
[2019-09-29] MEDS: PANTOPRAZOLE 40 MG VIAL IV SCH (09:14)
[2019-09-29] MEDS: POTASSIUM CHLORIDE 20 MEQ TABLET PO PRN (11:15)
[2019-09-29] MEDS: guaiFENesin 200 MG/10 ML UDCUP PO PRN (11:16)
[2019-09-29 11:29] VITALS: BP 108/53
== END 2019-09-29 16:45 | disposition home or self-care (01) | DRG 378 ==
LOC: N.ED 20:04 → N.EDINP 22:59 → SUATTDRO 22:59 → N.3E 09-27 00:51
PROVIDERS: ADMIT Internal Medicine; ATTEND Internal Medicine

== ENCOUNTER 2019-10-01 20:47 | Observation (INO) ==
[2019-10-01] MEDS ORDERED: SODIUM CHLORIDE 0.9% 500 ML IV STA (21:13)
[2019-10-01 21:46] LABS: Basophils % 0.8 % (0.0-0.8); Eosinophils # 0.4 10*3/uL (0.0-0.87); Hematocrit 30.5 VOL% (42.0-52.0); Hemoglobin 9.4 GM/DL (14.0-18.0); Immature Granulocytes % 0.4 %; Immature Granulocytes Absolute 0.02 #; Lymphocytes # 1.5 10*3/uL (1.4-4.0); Lymphocytes % 27.8 % (21.2-54.2); Mean Corpuscular HGB Conc 30.8 GM/DL (32-36); Mean Corpuscular Volume 105.5 FL (87-102); Mean Platelet Volume 11.8 FL (9.6-12.0); Monocytes % 11.9 % (1.7-12.7); Neutrophils % 52.1 % (38.7-73.9); Red Blood Count 2.89 MC/CUMM (3.8-5.5); Red Cell Distribution Width 13.6 % (9.3-17.3); White Blood Count 5.3 T/CUMM (4-12)
[2019-10-01 21:47] LABS: Platelet Count 98 T/CUMM (130-400)
[2019-10-01 21:56] LABS: PT Patient Result 10.9 SECS (9.8-11.9)
[2019-10-01 22:09] LABS: Albumin 2.4 G/DL (3.4-5.0); Bilirubin,Total 0.6 MG/DL (0.2-1.0); Calcium 8.3 MG/DL (8.5-10.1); Osmolality,Calculated 280.1 MOS/KG (273-304); Total Protein 5.8 G/DL (6.4-8.3)
[2019-10-01 22:20] LABS: Platelet Estimate Decreased
[2019-10-01] MEDS ORDERED: PANTOPRAZOLE INJ 80 MG in SODIUM CHLORIDE 0.9% 100 ML IV ONE (22:42)
[2019-10-01] MEDS ORDERED: GLUCAGON 1 MG VIAL IM PRN (22:55)
[2019-10-01] MEDS ORDERED: NICOTINE 21 MG/24 HR PATCH TRANSDERM PRN (22:55)
[2019-10-01] MEDS ORDERED: ZALEPLON 5 MG CAPSULE PO PRN (22:55)
[2019-10-01] MEDS ORDERED: ACETAMINOPHEN 325 MG TABLET PO PRN (22:55)
[2019-10-01] MEDS ORDERED: MORPHINE 4 MG/1 ML VIAL IV PRN (22:55)
[2019-10-01] MEDS ORDERED: diphenhydrAMINE CAP 25 MG CAPSULE PO PRN (22:55)
[2019-10-01] MEDS ORDERED: DOCUSATE SODIUM 100 MG CAPSULE PO PRN (22:55)
[2019-10-01] MEDS ORDERED: DEXTROSE 50% 25 GM/50 ML VIAL IV PRN (22:55)
[2019-10-01] MEDS ORDERED: ONDANSETRON 4 MG/2 ML VIAL IV PRN (22:55)
[2019-10-01] MEDS ORDERED: hydrALAZINE 20 MG/1 ML VIAL IV PRN (22:55)
[2019-10-01] MEDS ORDERED: ALBUTEROL 2.5 MG/3 ML NEB RESP TX PRN (22:55)
[2019-10-01] MEDS ORDERED: guaiFENesin/DM ER 600-30 MG TABLET PO PRN (22:55)
[2019-10-02] MEDS: PANTOPRAZOLE INJ 200 MG in SODIUM CHLORIDE 0.9% 250 ML IV SCH (00:10)
[2019-10-02 05:48] LABS: Basophils % 0.7 % (0.0-0.8); Eosinophils # 0.2 10*3/uL (0.0-0.87); Eosinophils % 5.9 % (0.00-10.9); Hematocrit 26.7 VOL% (42.0-52.0); Hemoglobin 8.3 GM/DL (14.0-18.0); Immature Granulocytes % 0.5 %; Immature Granulocytes Absolute 0.02 #; Lymphocytes # 1.2 10*3/uL (1.4-4.0); Mean Corpuscular HGB Conc 31.1 GM/DL (32-36); Mean Corpuscular Volume 106.4 FL (87-102); Monocytes % 12.6 % (1.7-12.7); Neutrophils % 50.3 % (38.7-73.9); Platelet Count 83 T/CUMM (130-400); Red Blood Count 2.51 MC/CUMM (3.8-5.5); Red Cell Distribution Width 13.6 % (9.3-17.3); White Blood Count 4.1 T/CUMM (4-12)
[2019-10-02] MEDS ORDERED: FUROSEMIDE 20 MG TABLET PO PRN (05:54)
[2019-10-02] MEDS ORDERED: LOPERAMIDE 2 MG CAPSULE PO PRN (05:54)
[2019-10-02 06:14] LABS: Bilirubin,Total 0.7 MG/DL (0.2-1.0); Calcium 7.9 MG/DL (8.5-10.1); Osmolality,Calculated 276.4 MOS/KG (273-304); Total Protein 5.2 G/DL (6.4-8.3)
[2019-10-02 06:33] LABS: Hypochromasia 1+; Microcytosis Slight; Platelet Estimate Decreased
[2019-10-02 07:18] LABS: % Iron Saturation 5.8 % (18-50); Ferritin 12.2 ng/ml (26-388)
[2019-10-02 08:00] LABS: Folate 11.9 NG/ML (5.4-24.0)
[2019-10-02] MEDS ORDERED: SPIRONOLACTONE 50 MG TABLET PO SCH ×2 (09:00→13:04)
[2019-10-02] MEDS ORDERED: ALBUMIN IV ONE ×3 (11:30→13:00)
[2019-10-02] MEDS: LORATADINE 10 MG TABLET PO SCH (12:14)
[2019-10-02] MEDS ORDERED: ALBUMIN 25% 25 GM in PREMIX 1 EACH IV ONE (12:29)
[2019-10-02] MEDS ORDERED: [UNRECOGNIZED DRUG - OTHER] PO SCH (18:00)
[2019-10-02] MEDS ORDERED: TAMSULOSIN 0.4 MG CAPSULE PO SCH (18:00)
[2019-10-03] MEDS: PANTOPRAZOLE INJ 200 MG in SODIUM CHLORIDE 0.9% 250 ML IV SCH (02:41)
[2019-10-03 05:22] LABS: Basophils % 0.8 % (0.0-0.8); Eosinophils # 0.1 10*3/uL (0.0-0.87); Eosinophils % 3.6 % (0.00-10.9); Hematocrit 28.2 VOL% (42.0-52.0); Hemoglobin 8.6 GM/DL (14.0-18.0); Immature Granulocytes % 0.3 %; Immature Granulocytes Absolute 0.01 #; Lymphocytes # 1.2 10*3/uL (1.4-4.0); Lymphocytes % 30.4 % (21.2-54.2); Mean Corpuscular HGB Conc 30.5 GM/DL (32-36); Mean Corpuscular Volume 105.6 FL (87-102); Mean Platelet Volume 11.7 FL (9.6-12.0); Monocytes % 9.3 % (1.7-12.7); Neutrophils % 55.6 % (38.7-73.9); Red Blood Count 2.67 MC/CUMM (3.8-5.5); Red Cell Distribution Width 13.7 % (9.3-17.3); White Blood Count 3.9 T/CUMM (4-12)
[2019-10-03 05:35] LABS: Platelet Count 75 T/CUMM (130-400)
[2019-10-03 05:42] LABS: Hypochromasia 1+; Microcytosis Slight; Ovalocytes Slight
[2019-10-03 05:43] LABS: Platelet Estimate Decreased
[2019-10-03 06:10] LABS: Albumin 2.4 G/DL (3.4-5.0); Bilirubin,Total 0.6 MG/DL (0.2-1.0); Calcium 7.9 MG/DL (8.5-10.1); Osmolality,Calculated 276.4 MOS/KG (273-304); Total Protein 5.3 G/DL (6.4-8.3)
[2019-10-03 07:53] VITALS: BP 94/46
[2019-10-03] MEDS ORDERED: FUROSEMIDE 40 MG TABLET PO SCH (09:00)
[2019-10-03] MEDS: LORATADINE 10 MG TABLET PO SCH (09:27)
== END 2019-10-03 12:25 | disposition home or self-care (01) ==
LOC: N.EDINP 20:47 → N.ED 20:47 → SUATTDRO 23:14 → N.EDINP 23:54 → N.TELES 10-02 00:30
PROVIDERS: ADMIT Internal Medicine; ATTEND Internal Medicine

== ENCOUNTER 2019-11-19 14:24 | Observation (INO) ==
[2019-11-19] MEDS ORDERED: ONDANSETRON 4 MG/2 ML VIAL IV ONE (14:48)
[2019-11-19 15:49] LABS: Basophils % 0.3 % (0.0-0.8); Eosinophils # 0.1 10*3/uL (0.0-0.87); Eosinophils % 3.8 % (0.00-10.9); Hematocrit 24.6 VOL% (42.0-52.0); Hemoglobin 7.4 GM/DL (14.0-18.0); Immature Granulocytes % 0.7 %; Immature Granulocytes Absolute 0.02 #; Lymphocytes # 0.5 10*3/uL (1.4-4.0); Lymphocytes % 17.5 % (21.2-54.2); Mean Corpuscular HGB Conc 30.1 GM/DL (32-36); Mean Corpuscular Volume 107.4 FL (87-102); Monocytes % 19.5 % (1.7-12.7); Neutrophils % 58.2 % (38.7-73.9); Platelet Count 91 T/CUMM (130-400); Red Blood Count 2.29 MC/CUMM (3.8-5.5); White Blood Count 2.9 T/CUMM (4-12)
[2019-11-19 16:11] LABS: Albumin 2.2 G/DL (3.4-5.0); Bilirubin,Total 0.6 MG/DL (0.2-1.0); Calcium 7.7 MG/DL (8.5-10.1); Total Protein 5.4 G/DL (6.4-8.3)
[2019-11-19 16:56] LABS: Apearance,Urine CLEAR (Clear); Bilirubin,Urine Negative (Negative); Blood, Urine Negative (Negative); Glucose,Urine (UA) Negative (Negative); Hyaline Casts,Urine 3 /LPF (0-3); Ketones,Urine Negative (Negative); Mucus,Urine Occasional /LPF (Occasional); Nitrite,Urine Negative (Negative); Protein,Urine Negative; RBC,Urine 3 /HPF (0-4); Squamous Epithelial Cell,Urine Occasional /HPF (0-10); Urine Color Yellow (Yellow); Urine Specific Gravity 1.023 (1.001-1.035); Urine Urobilinogen < 2.0 EU/DL (0.2-1.0); WBC,Urine 2 /HPF (0-6)
[2019-11-19 18:04] LABS: Band Neutrophils 1 % (0-10); Eosinophils 2 % (0-10); Hypochromasia Slight; Lymphocytes 22 % (20-55); Macrocytosis 1+; Platelet Estimate Decreased; Segmented Neutrophils 64 % (50-85); Total Cells Counted 100
[2019-11-19] MEDS ORDERED: DEXTROSE 50% 25 GM/50 ML VIAL IV PRN (18:15)
[2019-11-19] MEDS ORDERED: GLUCAGON 1 MG VIAL IM PRN (18:15)
[2019-11-19] MEDS ORDERED: MORPHINE 4 MG/1 ML VIAL IV STA ×2 (18:22)
[2019-11-19] MEDS: PANTOPRAZOLE 40 MG VIAL IV SCH (21:03)
[2019-11-20] MEDS: ONDANSETRON 4 MG/2 ML VIAL IV PRN ×3 (00:22→17:07)
[2019-11-20] MEDS: MORPHINE 4 MG/1 ML VIAL IV PRN ×3 (00:23→17:21)
[2019-11-20 03:55] LABS: Basophils % 0.3 % (0.0-0.8); Eosinophils # 0.1 10*3/uL (0.0-0.87); Eosinophils % 2.5 % (0.00-10.9); Hematocrit 21.2 VOL% (42.0-52.0); Immature Granulocytes % 0.3 %; Immature Granulocytes Absolute 0.01 #; Lymphocytes # 0.8 10*3/uL (1.4-4.0); Lymphocytes % 25.9 % (21.2-54.2); Mean Corpuscular HGB Conc 30.2 GM/DL (32-36); Mean Corpuscular Volume 107.6 FL (87-102); Mean Platelet Volume 11.6 FL (9.6-12.0); Monocytes % 25.3 % (1.7-12.7); Neutrophils % 45.7 % (38.7-73.9); Platelet Count 85 T/CUMM (130-400); Red Blood Count 1.97 MC/CUMM (3.8-5.5); Red Cell Distribution Width 15.1 % (9.3-17.3); White Blood Count 3.2 T/CUMM (4-12)
[2019-11-20 03:59] LABS: Hemoglobin 6.4 GM/DL (14.0-18.0)
[2019-11-20 04:21] LABS: Albumin 1.9 G/DL (3.4-5.0); Bilirubin,Direct 0.27 MG/DL (0.0-0.20); Bilirubin,Indirect 0.5 MG/DL (0.0-1.0); Bilirubin,Total 0.8 MG/DL (0.2-1.0); Calcium 7.5 MG/DL (8.5-10.1); Osmolality,Calculated 268.2 MOS/KG (273-304)
[2019-11-20] MEDS ORDERED: SODIUM CHLORIDE 0.9% 1,000 ML IV PRN (05:03)
[2019-11-20 05:09] LABS: Band Neutrophils 2 % (0-10); Eosinophils 2 % (0-10); Lymphocytes 19 % (20-55); Segmented Neutrophils 70 % (50-85); Total Cells Counted 100
[2019-11-20 05:10] LABS: Anisocytosis 1+; Polychromasia Few
[2019-11-20 05:11] LABS: Platelet Estimate Decreased
[2019-11-20] MEDS: PANTOPRAZOLE 40 MG VIAL IV SCH ×2 (08:31→21:04)
[2019-11-20 14:05] LABS: Neutrophils,Peritoneal Fluid 18 %
[2019-11-20 14:14] LABS: RBC,Peritoneal Fluid 193 T/CUMM
[2019-11-20 14:40] LABS: Hematocrit 29.8 VOL% (42.0-52.0)
[2019-11-21] MEDS ORDERED: SPIRONOLACTONE 25 MG TABLET PO SCH (09:00)
[2019-11-21] MEDS: PANTOPRAZOLE 40 MG VIAL IV SCH ×2 (10:10→21:47)
[2019-11-21] MEDS: ALBUMIN 25% 25 GM in PREMIX 1 EACH IV SCH (10:10)
[2019-11-21] MEDS: cefTRIAXone 1,000 MG in SYRINGE 1 EACH IV SCH (10:11)
[2019-11-21] MEDS: ONDANSETRON 4 MG/2 ML VIAL IV PRN ×2 (11:46→21:42)
[2019-11-21] MEDS ORDERED: SODIUM CHLORIDE 0.65% NASAL SPRAY 45 ML BOTTLE BOTH NARES PRN (14:06)
[2019-11-21 14:33] LABS: Basophils % 0.4 % (0.0-0.8); Eosinophils # 0.2 10*3/uL (0.0-0.87); Eosinophils % 6.3 % (0.00-10.9); Hematocrit 27.5 VOL% (42.0-52.0); Hemoglobin 8.4 GM/DL (14.0-18.0); Immature Granulocytes % 0.4 %; Immature Granulocytes Absolute 0.01 #; Lymphocytes # 0.8 10*3/uL (1.4-4.0); Lymphocytes % 30.3 % (21.2-54.2); Mean Corpuscular HGB Conc 30.5 GM/DL (32-36); Mean Corpuscular Volume 102.2 FL (87-102); Mean Platelet Volume 10.8 FL (9.6-12.0); Monocytes % 8.5 % (1.7-12.7); Neutrophils % 54.1 % (38.7-73.9); Platelet Count 80 T/CUMM (130-400); Red Blood Count 2.69 MC/CUMM (3.8-5.5); Red Cell Distribution Width 18.9 % (9.3-17.3); White Blood Count 2.7 T/CUMM (4-12)
[2019-11-21 14:49] LABS: Albumin 2.3 G/DL (3.4-5.0); Bilirubin,Total 0.8 MG/DL (0.2-1.0); Calcium 7.3 MG/DL (8.5-10.1); Osmolality,Calculated 266.4 MOS/KG (273-304); Total Protein 5.4 G/DL (6.4-8.3)
[2019-11-21] MEDS ORDERED: SPIRONOLACTONE 100 MG TABLET PO SCH (15:13)
[2019-11-21] MEDS: POTASSIUM CHLORIDE RIDER 10 MEQ in PREMIX 1 EACH IV PRN (15:36)
[2019-11-21] MEDS ORDERED: FUROSEMIDE 20 MG/2 ML VIAL IV SCH (16:00)
[2019-11-21 20:10] LABS: Macrocytosis 1+
[2019-11-21 20:11] LABS: Anisocytosis 2+; Hypochromasia 3+; Poikilocytosis 1+; Polychromasia 1+
[2019-11-21 20:12] LABS: Platelet Estimate Adequate
[2019-11-21] MEDS: POTASSIUM CHLORIDE 20 MEQ/15 ML UDCUP PER TUBE PRN (21:46)
[2019-11-22] MEDS: ALBUMIN 25% 25 GM in PREMIX 1 EACH IV SCH ×3 (00:16→21:20)
[2019-11-22] MEDS: POTASSIUM CHLORIDE 20 MEQ/15 ML UDCUP PER TUBE PRN ×3 (00:18→04:29)
[2019-11-22 05:43] LABS: Basophils % 0.4 % (0.0-0.8); Eosinophils # 0.2 10*3/uL (0.0-0.87); Eosinophils % 6.4 % (0.00-10.9); Hematocrit 25.3 VOL% (42.0-52.0); Hemoglobin 7.9 GM/DL (14.0-18.0); Immature Granulocytes % 0.4 %; Immature Granulocytes Absolute 0.01 #; Lymphocytes # 0.9 10*3/uL (1.4-4.0); Lymphocytes % 39.1 % (21.2-54.2); Mean Corpuscular HGB Conc 31.2 GM/DL (32-36); Mean Corpuscular Volume 98.4 FL (87-102); Mean Platelet Volume 11.9 FL (9.6-12.0); Monocytes % 9.9 % (1.7-12.7); Neutrophils % 43.8 % (38.7-73.9); Platelet Count 64 T/CUMM (130-400); Red Blood Count 2.57 MC/CUMM (3.8-5.5); Red Cell Distribution Width 18.3 % (9.3-17.3); White Blood Count 2.3 T/CUMM (4-12)
[2019-11-22 06:04] LABS: Albumin 2.4 G/DL (3.4-5.0); Bilirubin,Total 0.9 MG/DL (0.2-1.0); Calcium 7.7 MG/DL (8.5-10.1); Osmolality,Calculated 268.1 MOS/KG (273-304); Total Protein 5.3 G/DL (6.4-8.3)
[2019-11-22 08:08] LABS: Band Neutrophils 3 % (0-10); Eosinophils 7 % (0-10); Lymphocytes 30 % (20-55); Segmented Neutrophils 46 % (50-85); Total Cells Counted 100
[2019-11-22 08:09] LABS: Anisocytosis 2+; Platelet Estimate Decreased; Poikilocytosis Slight; Smudge Cells Few
[2019-11-22 08:10] LABS: Macrocytosis Slight
[2019-11-22] MEDS: FUROSEMIDE 40 MG TABLET PO SCH (09:50)
[2019-11-22] MEDS: SPIRONOLACTONE 50 MG TABLET PO SCH (09:50)
[2019-11-22] MEDS: cefTRIAXone 1,000 MG in SYRINGE 1 EACH IV SCH (10:03)
[2019-11-22] MEDS: PANTOPRAZOLE 40 MG VIAL IV SCH ×2 (10:03→21:20)
[2019-11-22] MEDS: POTASSIUM CHLORIDE RIDER 10 MEQ in PREMIX 1 EACH IV PRN ×3 (14:19→16:49)
[2019-11-22 14:23] LABS: Hematocrit 25.8 VOL% (42.0-52.0)
[2019-11-22 21:37] LABS: Hematocrit 26.9 VOL% (42.0-52.0); Hemoglobin 8.6 GM/DL (14.0-18.0)
[2019-11-22] MEDS: ONDANSETRON 4 MG/2 ML VIAL IV PRN (21:46)
[2019-11-22] MEDS: MORPHINE 4 MG/1 ML VIAL IV PRN (21:46)
[2019-11-23 06:11] LABS: Albumin 2.5 G/DL (3.4-5.0); Calcium 7.5 MG/DL (8.5-10.1); Osmolality,Calculated 263.4 MOS/KG (273-304); Total Protein 5.1 G/DL (6.4-8.3)
[2019-11-23] MEDS: POTASSIUM CHLORIDE 20 MEQ/15 ML UDCUP PER TUBE PRN (09:46)
[2019-11-23] MEDS: FUROSEMIDE 40 MG TABLET PO SCH (09:47)
[2019-11-23] MEDS: SPIRONOLACTONE 50 MG TABLET PO SCH (09:47)
[2019-11-23] MEDS: PANTOPRAZOLE 40 MG VIAL IV SCH (09:47)
[2019-11-23] MEDS: cefTRIAXone 1,000 MG in SYRINGE 1 EACH IV SCH (09:48)
[2019-11-23] MEDS: ALBUMIN 25% 25 GM in PREMIX 1 EACH IV SCH (09:48)
[2019-11-23 10:41] LABS: Basophils % 0.6 % (0.0-0.8); Eosinophils # 0.2 10*3/uL (0.0-0.87); Eosinophils % 11.5 % (0.00-10.9); Lymphocytes # 0.5 10*3/uL (1.4-4.0); Lymphocytes % 31.5 % (21.2-54.2); Mean Corpuscular HGB Conc 31.2 GM/DL (32-36); Mean Corpuscular Volume 99.6 FL (87-102); Mean Platelet Volume 11.4 FL (9.6-12.0); Monocytes % 11.5 % (1.7-12.7); Neutrophils % 44.9 % (38.7-73.9); Red Blood Count 2.51 MC/CUMM (3.8-5.5); Red Cell Distribution Width 17.7 % (9.3-17.3); White Blood Count 1.7 T/CUMM (4-12)
[2019-11-23 10:45] LABS: Hemoglobin 7.8 GM/DL (14.0-18.0); Platelet Count 63 T/CUMM (130-400)
[2019-11-23 12:56] LABS: Anisocytosis 1+; Band Neutrophils 4 % (0-10); Eosinophils 7 % (0-10); Lymphocytes 30 % (20-55); Nucleated Red Blood Cells 1 (0-5); Platelet Estimate Decreased; Segmented Neutrophils 51 % (50-85); Tear Drop Cells Few; Total Cells Counted 100
[2019-11-23 12:57] LABS: Macrocytosis Slight
[2019-11-23 13:42] LABS: Hematocrit 24.7 VOL% (42.0-52.0); Hemoglobin 7.7 GM/DL (14.0-18.0)
[2019-11-23 16:08] VITALS: BP 102/37
== END 2019-11-23 17:57 | disposition home or self-care (01) ==
LOC: N.ED 14:24 → N.EDINP 14:24 → SUATTDRO 18:50 → N.ICU 21:30 → N.4E 11-20 17:02 → N.2E 11-22 01:13
PROVIDERS: ADMIT Internal Medicine; ATTEND Internal Medicine

== ENCOUNTER 2019-11-26 19:29 | Inpatient (IN) ==
[2019-11-26] MEDS ORDERED: SODIUM CHLORIDE 0.9% 1,000 ML IV STA (20:03)
[2019-11-26] MEDS ORDERED: PANTOPRAZOLE 40 MG VIAL IV STA (20:03)
[2019-11-26] MEDS ORDERED: ONDANSETRON 4 MG/2 ML VIAL IV STA (20:03)
[2019-11-26 21:29] LABS: Basophils % 0.6 % (0.0-0.8); Eosinophils # 0.1 10*3/uL (0.0-0.87); Eosinophils % 3.8 % (0.00-10.9); Hemoglobin 8.2 GM/DL (14.0-18.0); Immature Granulocytes % 1.3 %; Immature Granulocytes Absolute 0.02 #; Lymphocytes # 0.6 10*3/uL (1.4-4.0); Mean Corpuscular HGB Conc 30.4 GM/DL (32-36); Mean Corpuscular Volume 101.9 FL (87-102); Mean Platelet Volume 11.7 FL (9.6-12.0); Monocytes % 8.3 % (1.7-12.7); Platelet Count 63 T/CUMM (130-400); Red Blood Count 2.65 MC/CUMM (3.8-5.5); Red Cell Distribution Width 16.3 % (9.3-17.3); White Blood Count 1.6 T/CUMM (4-12)
[2019-11-26 21:34] LABS: Apearance,Urine CLEAR (Clear); Bacteria,Urine Occasional /HPF (Few); Bilirubin,Urine Negative (Negative); Blood, Urine Negative (Negative); Glucose,Urine (UA) Negative (Negative); Ketones,Urine Negative (Negative); Mucus,Urine Occasional /LPF (Occasional); Nitrite,Urine Negative (Negative); Protein,Urine Negative; RBC,Urine 1 /HPF (0-4); Squamous Epithelial Cell,Urine Occasional /HPF (0-10); Urine Color Yellow (Yellow); Urine Specific Gravity 1.014 (1.001-1.035); Urine Urobilinogen < 2.0 EU/DL (0.2-1.0); WBC,Urine 2 /HPF (0-6)
[2019-11-26 21:46] LABS: Albumin 2.8 G/DL (3.4-5.0); Bilirubin,Total 0.8 MG/DL (0.2-1.0); Calcium 7.8 MG/DL (8.5-10.1); Total Protein 5.9 G/DL (6.4-8.3)
[2019-11-26 21:57] LABS: Hypochromasia 1+; Lymphocytes 37 % (20-55); Macrocytosis Slight; Platelet Estimate Decreased; Segmented Neutrophils 58 % (50-85); Total Cells Counted 100
[2019-11-27] MEDS ORDERED: DEXTROSE 50% 25 GM/50 ML VIAL IV PRN (00:30)
[2019-11-27] MEDS ORDERED: GLUCAGON 1 MG VIAL IM PRN (00:30)
[2019-11-27] MEDS ORDERED: NICOTINE 21 MG/24 HR PATCH TRANSDERM PRN (00:39)
[2019-11-27] MEDS ORDERED: hydrALAZINE 20 MG/1 ML VIAL IV PRN (00:39)
[2019-11-27] MEDS ORDERED: CIPROFLOXACIN INJ 400 MG in PREMIX 1 EACH IV SCH (01:30)
[2019-11-27] MEDS: SODIUM CHLORIDE 0.9% 1,000 ML IV SCH ×2 (02:30→15:11)
[2019-11-27] MEDS: PANTOPRAZOLE INJ 200 MG in SODIUM CHLORIDE 0.9% 250 ML IV SCH (03:30)
[2019-11-27 07:12] LABS: Eosinophils % 2.1 % (0.00-10.9); Hematocrit 22.7 VOL% (42.0-52.0); Immature Granulocytes % 0.5 %; Immature Granulocytes Absolute 0.01 #; Lymphocytes # 0.8 10*3/uL (1.4-4.0); Lymphocytes % 44.7 % (21.2-54.2); Mean Corpuscular HGB Conc 30.8 GM/DL (32-36); Mean Corpuscular Volume 102.7 FL (87-102); Mean Platelet Volume 12.6 FL (9.6-12.0); Neutrophils % 43.7 % (38.7-73.9); Platelet Count 58 T/CUMM (130-400); Red Blood Count 2.21 MC/CUMM (3.8-5.5); Red Cell Distribution Width 16.4 % (9.3-17.3); White Blood Count 1.9 T/CUMM (4-12)
[2019-11-27 07:53] LABS: Eosinophils 1 % (0-10); Hypochromasia 2+; Lymphocytes 35 % (20-55); Platelet Estimate Decreased; Segmented Neutrophils 53 % (50-85); Total Cells Counted 100
[2019-11-27 07:54] LABS: Macrocytosis Slight
[2019-11-27] MEDS: OCTREOTIDE 500 MCG in SODIUM CHLORIDE 0.9% 100 ML IV SCH ×2 (11:25→21:12)
[2019-11-27] MEDS ORDERED: OCTREOTIDE 100 MCG/ML SYRINGE IV ONE (11:30)
[2019-11-27 16:28] LABS: Hematocrit 22.5 VOL% (42.0-52.0); Hemoglobin 6.9 GM/DL (14.0-18.0)
[2019-11-27] MEDS ORDERED: SODIUM CHLORIDE 0.9% 1,000 ML IV PRN (16:30)
[2019-11-27] MEDS: MORPHINE 4 MG/1 ML VIAL IV PRN (19:47)
[2019-11-27] MEDS: cefTRIAXone 2,000 MG in SYRINGE 1 EACH IV SCH (21:39)
[2019-11-28] MEDS: SODIUM CHLORIDE 0.9% 1,000 ML IV SCH ×3 (00:11→20:05)
[2019-11-28] MEDS: PANTOPRAZOLE INJ 200 MG in SODIUM CHLORIDE 0.9% 250 ML IV SCH (00:11)
[2019-11-28 06:28] LABS: Basophils % 0.5 % (0.0-0.8); Eosinophils # 0.1 10*3/uL (0.0-0.87); Eosinophils % 5.4 % (0.00-10.9); Hematocrit 24.9 VOL% (42.0-52.0); Hemoglobin 7.5 GM/DL (14.0-18.0); Immature Granulocytes % 0.5 %; Immature Granulocytes Absolute 0.01 #; Lymphocytes % 46.3 % (21.2-54.2); Mean Corpuscular HGB Conc 30.1 GM/DL (32-36); Mean Platelet Volume 11.5 FL (9.6-12.0); Monocytes % 8.8 % (1.7-12.7); Neutrophils % 38.5 % (38.7-73.9); Red Blood Count 2.44 MC/CUMM (3.8-5.5); White Blood Count 2.1 T/CUMM (4-12)
[2019-11-28 06:38] LABS: Platelet Count 58 T/CUMM (130-400)
[2019-11-28 06:52] LABS: Calcium 7.2 MG/DL (8.5-10.1); Osmolality,Calculated 271.8 MOS/KG (273-304)
[2019-11-28 07:16] LABS: Eosinophils 3 % (0-10); Hypochromasia 2+; Lymphocytes 48 % (20-55); Segmented Neutrophils 45 % (50-85); Total Cells Counted 100
[2019-11-28 07:17] LABS: Anisocytosis 1+; Polychromasia Slight
[2019-11-28 07:18] LABS: Ovalocytes Slight; Platelet Estimate Decreased
[2019-11-28] MEDS: OCTREOTIDE 500 MCG in SODIUM CHLORIDE 0.9% 100 ML IV SCH ×2 (07:21→17:17)
[2019-11-28] MEDS ORDERED: FLUTICASONE PROPIONATE BOTH NARES PRN (10:05)
[2019-11-28 10:42] LABS: Hematocrit 25.9 VOL% (42.0-52.0); Hemoglobin 7.8 GM/DL (14.0-18.0)
[2019-11-28] MEDS: FUROSEMIDE 40 MG TABLET PO SCH (11:19)
[2019-11-28] MEDS: SPIRONOLACTONE 50 MG TABLET PO SCH (11:19)
[2019-11-28 18:52] LABS: Hematocrit 27.7 VOL% (42.0-52.0); Hemoglobin 8.4 GM/DL (14.0-18.0)
[2019-11-28] MEDS: cefTRIAXone 2,000 MG in SYRINGE 1 EACH IV SCH (20:07)
[2019-11-29] MEDS: PANTOPRAZOLE INJ 200 MG in SODIUM CHLORIDE 0.9% 250 ML IV SCH (00:54)
[2019-11-29 01:56] LABS: Hematocrit 24.7 VOL% (42.0-52.0); Hemoglobin 7.5 GM/DL (14.0-18.0)
[2019-11-29] MEDS: ONDANSETRON 4 MG/2 ML VIAL IV PRN ×2 (02:04→09:22)
[2019-11-29] MEDS: MORPHINE 4 MG/1 ML VIAL IV PRN ×2 (02:06→12:13)
[2019-11-29 02:17] LABS: Calcium 7.1 MG/DL (8.5-10.1); Osmolality,Calculated 274.7 MOS/KG (273-304)
[2019-11-29 02:34] LABS: INR 1.1; PT Patient Result 11.7 SECS (9.8-11.9)
[2019-11-29] MEDS: SODIUM CHLORIDE 0.9% 1,000 ML IV SCH ×3 (03:09→16:43)
[2019-11-29] MEDS: OCTREOTIDE 500 MCG in SODIUM CHLORIDE 0.9% 100 ML IV SCH ×2 (03:19→14:52)
[2019-11-29 07:29] LABS: Basophils % 0.4 % (0.0-0.8); Eosinophils # 0.1 10*3/uL (0.0-0.87); Eosinophils % 3.6 % (0.00-10.9); Hematocrit 24.4 VOL% (42.0-52.0); Hemoglobin 7.3 GM/DL (14.0-18.0); Immature Granulocytes % 0.4 %; Immature Granulocytes Absolute 0.01 #; Lymphocytes # 1.1 10*3/uL (1.4-4.0); Mean Corpuscular HGB Conc 29.9 GM/DL (32-36); Mean Corpuscular Volume 102.1 FL (87-102); Mean Platelet Volume 11.5 FL (9.6-12.0); Monocytes % 7.6 % (1.7-12.7); Red Blood Count 2.39 MC/CUMM (3.8-5.5); Red Cell Distribution Width 16.8 % (9.3-17.3); White Blood Count 2.3 T/CUMM (4-12)
[2019-11-29 07:33] LABS: Platelet Count 57 T/CUMM (130-400)
[2019-11-29] MEDS: SPIRONOLACTONE 50 MG TABLET PO SCH (08:24)
[2019-11-29] MEDS: FUROSEMIDE 40 MG TABLET PO SCH (08:24)
[2019-11-29 09:12] LABS: Anisocytosis 1+; Eosinophils 5 % (0-10); Hypochromasia 1+; Lymphocytes 41 % (20-55); Platelet Estimate Decreased; Segmented Neutrophils 52 % (50-85); Total Cells Counted 100
[2019-11-29] MEDS: cefTRIAXone 2,000 MG in SYRINGE 1 EACH IV SCH (21:30)
[2019-11-30] MEDS: SODIUM CHLORIDE 0.9% 1,000 ML IV SCH ×4 (00:42→22:50)
[2019-11-30] MEDS: OCTREOTIDE 500 MCG in SODIUM CHLORIDE 0.9% 100 ML IV SCH ×4 (00:43→21:24)
[2019-11-30] MEDS: PANTOPRAZOLE INJ 200 MG in SODIUM CHLORIDE 0.9% 250 ML IV SCH (00:44)
[2019-11-30 07:22] LABS: Calcium 7.1 MG/DL (8.5-10.1); Osmolality,Calculated 272.8 MOS/KG (273-304)
[2019-11-30] MEDS: SPIRONOLACTONE 50 MG TABLET PO SCH (08:51)
[2019-11-30] MEDS: FUROSEMIDE 40 MG TABLET PO SCH (08:52)
[2019-11-30] MEDS ORDERED: LIDOCAINE 2% 5 ML VIAL ONE (09:00)
[2019-11-30] MEDS ORDERED: propofoL 200 MG/20 ML VIAL IV ONE (09:00)
[2019-11-30 09:29] LABS: Basophils % 0.5 % (0.0-0.8); Eosinophils # 0.1 10*3/uL (0.0-0.87); Eosinophils % 4.1 % (0.00-10.9); Hematocrit 24.3 VOL% (42.0-52.0); Hemoglobin 7.4 GM/DL (14.0-18.0); Immature Granulocytes % 0.5 %; Immature Granulocytes Absolute 0.01 #; Lymphocytes # 0.7 10*3/uL (1.4-4.0); Lymphocytes % 35.2 % (21.2-54.2); Mean Corpuscular HGB Conc 30.5 GM/DL (32-36); Mean Corpuscular Volume 101.7 FL (87-102); Monocytes % 8.8 % (1.7-12.7); Neutrophils % 50.9 % (38.7-73.9); Platelet Count 59 T/CUMM (130-400); Red Blood Count 2.39 MC/CUMM (3.8-5.5); Red Cell Distribution Width 16.3 % (9.3-17.3); White Blood Count 1.9 T/CUMM (4-12)
[2019-11-30 10:30] LABS: Anisocytosis 1+; Band Neutrophils 3 % (0-10); Eosinophils 2 % (0-10); Hypochromasia 1+; Lymphocytes 28 % (20-55); Platelet Estimate Decreased; Segmented Neutrophils 59 % (50-85); Smudge Cells Few; Total Cells Counted 100
[2019-11-30] MEDS ORDERED: LACTATED RINGERS 1,000 ML IV SCH (11:00)
[2019-11-30] MEDS: ASCORBIC ACID 500 MG TABLET PO SCH ×2 (14:39→21:25)
[2019-11-30] MEDS: ZINC SULFATE 220 MG CAPSULE PO SCH (14:39)
[2019-11-30] MEDS: ONDANSETRON 4 MG/2 ML VIAL IV PRN ×2 (14:40→22:36)
[2019-11-30] MEDS: MORPHINE 4 MG/1 ML VIAL IV PRN ×2 (14:40→22:40)
[2019-11-30] MEDS: PANTOPRAZOLE 40 MG VIAL IV SCH (21:10)
[2019-11-30] MEDS: cefTRIAXone 2,000 MG in SYRINGE 1 EACH IV SCH (21:13)
[2019-12-01 06:41] LABS: Basophils % 0.5 % (0.0-0.8); Hematocrit 23.5 VOL% (42.0-52.0); Hemoglobin 7.4 GM/DL (14.0-18.0); Immature Granulocytes % 0.5 %; Immature Granulocytes Absolute 0.01 #; Lymphocytes # 0.7 10*3/uL (1.4-4.0); Lymphocytes % 35.8 % (21.2-54.2); Mean Corpuscular HGB Conc 31.5 GM/DL (32-36); Mean Corpuscular Volume 99.6 FL (87-102); Mean Platelet Volume 12.2 FL (9.6-12.0); Monocytes % 8.5 % (1.7-12.7); Neutrophils % 52.7 % (38.7-73.9); Platelet Count 62 T/CUMM (130-400); Red Blood Count 2.36 MC/CUMM (3.8-5.5); Red Cell Distribution Width 16.2 % (9.3-17.3)
[2019-12-01 06:55] LABS: Calcium 7.9 MG/DL (8.5-10.1); Osmolality,Calculated 274.5 MOS/KG (273-304)
[2019-12-01 07:11] LABS: Albumin 2.2 G/DL (3.4-5.0); Bilirubin,Direct 0.33 MG/DL (0.0-0.20); Bilirubin,Indirect 0.6 MG/DL (0.0-1.0); Bilirubin,Total 0.9 MG/DL (0.2-1.0); Total Protein 4.8 G/DL (6.4-8.3)
[2019-12-01] MEDS: OCTREOTIDE 500 MCG in SODIUM CHLORIDE 0.9% 100 ML IV SCH ×2 (10:38→18:27)
[2019-12-01] MEDS: SPIRONOLACTONE 50 MG TABLET PO SCH (10:38)
[2019-12-01] MEDS: ASCORBIC ACID 500 MG TABLET PO SCH ×2 (10:38→21:32)
[2019-12-01] MEDS: PANTOPRAZOLE 40 MG VIAL IV SCH ×2 (10:38→21:30)
[2019-12-01] MEDS: FUROSEMIDE 40 MG TABLET PO SCH (10:38)
[2019-12-01] MEDS: ZINC SULFATE 220 MG CAPSULE PO SCH (10:39)
[2019-12-01] MEDS: ONDANSETRON 4 MG/2 ML VIAL IV PRN ×2 (10:39→18:51)
[2019-12-01] MEDS: MORPHINE 4 MG/1 ML VIAL IV PRN ×2 (10:39→18:50)
[2019-12-01] MEDS: SODIUM CHLORIDE 0.9% 1,000 ML IV SCH (14:41)
[2019-12-01] MEDS: cefTRIAXone 2,000 MG in SYRINGE 1 EACH IV SCH (21:30)
[2019-12-02] MEDS: OCTREOTIDE 500 MCG in SODIUM CHLORIDE 0.9% 100 ML IV SCH ×2 (02:30→18:25)
[2019-12-02 06:37] LABS: Basophils % 0.4 % (0.0-0.8); Eosinophils % 1.8 % (0.00-10.9); Hematocrit 23.8 VOL% (42.0-52.0); Hemoglobin 7.4 GM/DL (14.0-18.0); Immature Granulocytes % 0.4 %; Immature Granulocytes Absolute 0.01 #; Lymphocytes # 0.8 10*3/uL (1.4-4.0); Lymphocytes % 34.8 % (21.2-54.2); Mean Corpuscular HGB Conc 31.1 GM/DL (32-36); Mean Corpuscular Volume 98.8 FL (87-102); Mean Platelet Volume 12.8 FL (9.6-12.0); Monocytes % 11.2 % (1.7-12.7); Neutrophils % 51.4 % (38.7-73.9); Red Blood Count 2.41 MC/CUMM (3.8-5.5); Red Cell Distribution Width 15.8 % (9.3-17.3); White Blood Count 2.2 T/CUMM (4-12)
[2019-12-02 06:48] LABS: Platelet Count 40 T/CUMM (130-400)
[2019-12-02 06:58] LABS: Albumin 2.1 G/DL (3.4-5.0); Bilirubin,Total 0.9 MG/DL (0.2-1.0); Osmolality,Calculated 271.7 MOS/KG (273-304); Total Protein 4.9 G/DL (6.4-8.3)
[2019-12-02 07:03] LABS: Hypochromasia 2+; Microcytosis Slight; Platelet Estimate Decreased
[2019-12-02] MEDS: ZINC SULFATE 220 MG CAPSULE PO SCH (09:27)
[2019-12-02] MEDS: FUROSEMIDE 40 MG TABLET PO SCH (09:27)
[2019-12-02] MEDS: ASCORBIC ACID 500 MG TABLET PO SCH ×2 (09:27→21:27)
[2019-12-02] MEDS: SPIRONOLACTONE 50 MG TABLET PO SCH (09:27)
[2019-12-02] MEDS: PANTOPRAZOLE 40 MG VIAL IV SCH ×2 (09:28→21:20)
[2019-12-02 20:32] VITALS: BP 115/49
[2019-12-02] MEDS: ONDANSETRON 4 MG/2 ML VIAL IV PRN (21:18)
[2019-12-02] MEDS: MORPHINE 4 MG/1 ML VIAL IV PRN (21:19)
[2019-12-02] MEDS: cefTRIAXone 2,000 MG in SYRINGE 1 EACH IV SCH (21:20)
[2019-12-03] MEDS: OCTREOTIDE 500 MCG in SODIUM CHLORIDE 0.9% 100 ML IV SCH (04:27)
[2019-12-03 06:55] LABS: Eosinophils % 1.7 % (0.00-10.9); Hematocrit 24.4 VOL% (42.0-52.0); Hemoglobin 7.6 GM/DL (14.0-18.0); Immature Granulocytes % 0.4 %; Immature Granulocytes Absolute 0.01 #; Lymphocytes # 0.9 10*3/uL (1.4-4.0); Lymphocytes % 35.7 % (21.2-54.2); Mean Corpuscular HGB Conc 31.1 GM/DL (32-36); Mean Corpuscular Volume 98.4 FL (87-102); Mean Platelet Volume 12.2 FL (9.6-12.0); Monocytes % 8.7 % (1.7-12.7); Neutrophils % 53.5 % (38.7-73.9); Platelet Count 67 T/CUMM (130-400); Red Blood Count 2.48 MC/CUMM (3.8-5.5); Red Cell Distribution Width 15.6 % (9.3-17.3); White Blood Count 2.4 T/CUMM (4-12)
[2019-12-03 07:08] LABS: Osmolality,Calculated 272.7 MOS/KG (273-304)
[2019-12-03 07:24] LABS: Hypochromasia 2+; Lymphocytes 23 % (20-55); Platelet Estimate Decreased; Segmented Neutrophils 71 % (50-85); Total Cells Counted 100
[2019-12-03 07:25] LABS: Microcytosis Slight
[2019-12-03] MEDS: ASCORBIC ACID 500 MG TABLET PO SCH (09:19)
[2019-12-03] MEDS: FUROSEMIDE 40 MG TABLET PO SCH (09:19)
[2019-12-03] MEDS: PANTOPRAZOLE 40 MG VIAL IV SCH (09:19)
[2019-12-03] MEDS: SPIRONOLACTONE 50 MG TABLET PO SCH (09:20)
== END 2019-12-03 14:15 | disposition home or self-care (01) | DRG 441 ==
LOC: N.EDINP 19:29 → N.ED 19:29 → SUATTDRO 11-27 00:03 → N.2E 11-27 02:21
PROVIDERS: ADMIT Emergency Medicine; ATTEND Internal Medicine
PROC: EGDWEBL (ICD-10-PCS; 2019-11-30 11:05)

== ENCOUNTER 2020-01-07 21:17 | Observation (INO) ==
[2020-01-07] MEDS ORDERED: PANTOPRAZOLE 40 MG VIAL IV STA (23:59)
[2020-01-07] MEDS ORDERED: ONDANSETRON 4 MG/2 ML VIAL IV STA (23:59)
[2020-01-08 00:41] LABS: PT Patient Result 10.8 SECS (9.8-11.9)
[2020-01-08 00:42] LABS: Bilirubin,Total 0.5 MG/DL (0.2-1.0); Osmolality,Calculated 269.4 MOS/KG (273-304); Total Protein 5.6 G/DL (6.4-8.3)
[2020-01-08 01:02] LABS: Basophils % 0.3 % (0.0-0.8); Eosinophils # 0.3 10*3/uL (0.0-0.87); Eosinophils % 5.3 % (0.00-10.9); Hemoglobin 6.7 GM/DL (14.0-18.0); Immature Granulocytes % 0.2 %; Immature Granulocytes Absolute 0.01 #; Lymphocytes # 1.5 10*3/uL (1.4-4.0); Lymphocytes % 25.4 % (21.2-54.2); Mean Corpuscular HGB Conc 30.5 GM/DL (32-36); Mean Corpuscular Volume 101.4 FL (87-102); Mean Platelet Volume 11.7 FL (9.6-12.0); Monocytes % 14.6 % (1.7-12.7); Neutrophils % 54.2 % (38.7-73.9); Platelet Count 109 T/CUMM (130-400); Red Blood Count 2.17 MC/CUMM (3.8-5.5); Red Cell Distribution Width 17.3 % (9.3-17.3); White Blood Count 5.8 T/CUMM (4-12)
[2020-01-08] MEDS ORDERED: ACETAMINOPHEN 325 MG TABLET PO PRN (02:07)
[2020-01-08] MEDS ORDERED: MORPHINE 4 MG/1 ML VIAL IV PRN (02:07)
[2020-01-08] MEDS ORDERED: NICOTINE 21 MG/24 HR PATCH TRANSDERM PRN (02:07)
[2020-01-08] MEDS ORDERED: hydrALAZINE 20 MG/1 ML VIAL IV PRN (02:07)
[2020-01-08] MEDS ORDERED: GLUCAGON 1 MG VIAL IM PRN (02:07)
[2020-01-08] MEDS ORDERED: DEXTROSE 50% 25 GM/50 ML VIAL IV PRN (02:07)
[2020-01-08] MEDS ORDERED: SODIUM CHLORIDE 0.9% 1,000 ML IV PRN ×2 (02:07→06:49)
[2020-01-08] MEDS: ONDANSETRON 4 MG/2 ML VIAL IV PRN ×2 (07:05→21:44)
[2020-01-08] MEDS ORDERED: LIDOCAINE 2% 5 ML VIAL ONE (09:00)
[2020-01-08] MEDS ORDERED: propofoL 200 MG/20 ML VIAL IV ONE (09:00)
[2020-01-08] MEDS ORDERED: SODIUM CHLORIDE 0.9% 1,000 ML IV SCH (09:00)
[2020-01-08] MEDS ORDERED: SODIUM PHOSPHATE ENEMA 133 ML BOTTLE RECTAL ONE (09:00)
[2020-01-08] MEDS: PANTOPRAZOLE 40 MG VIAL IV SCH ×2 (10:13→20:27)
[2020-01-08] MEDS: LACTATED RINGERS 1,000 ML IV SCH (11:56)
[2020-01-08 14:22] LABS: Hematocrit 23.9 VOL% (42.0-52.0); Hemoglobin 7.4 GM/DL (14.0-18.0)
[2020-01-08] MEDS ORDERED: FLUTICASONE 50 MCG NASAL SPRAY 16 GM BOTTLE BOTH NARES PRN (20:04)
[2020-01-09 08:18] LABS: Basophils % 0.6 % (0.0-0.8); Eosinophils # 0.2 10*3/uL (0.0-0.87); Eosinophils % 4.8 % (0.00-10.9); Hematocrit 25.8 VOL% (42.0-52.0); Hemoglobin 8.2 GM/DL (14.0-18.0); Immature Granulocytes % 0.6 %; Immature Granulocytes Absolute 0.03 #; Lymphocytes # 1.5 10*3/uL (1.4-4.0); Lymphocytes % 30.1 % (21.2-54.2); Mean Corpuscular HGB Conc 31.8 GM/DL (32-36); Mean Corpuscular Volume 97.4 FL (87-102); Mean Platelet Volume 10.7 FL (9.6-12.0); Monocytes % 14.3 % (1.7-12.7); Neutrophils % 49.6 % (38.7-73.9); Red Blood Count 2.65 MC/CUMM (3.8-5.5); Red Cell Distribution Width 18.2 % (9.3-17.3)
[2020-01-09 08:20] LABS: Platelet Count 99 T/CUMM (130-400)
[2020-01-09 08:37] LABS: Hypochromasia 1+; Platelet Estimate Decreased
[2020-01-09 08:38] LABS: Microcytosis 1+
[2020-01-09 08:42] LABS: Calcium 7.9 MG/DL (8.5-10.1); Osmolality,Calculated 269.2 MOS/KG (273-304)
[2020-01-09] MEDS: PANTOPRAZOLE 40 MG VIAL IV SCH (08:43)
[2020-01-09] MEDS ORDERED: PROMETHAZINE INJ 12.5 MG in SODIUM CHLORIDE 0.9% 50 ML IV ONE (09:03)
[2020-01-09] MEDS: LACTATED RINGERS 1,000 ML IV SCH (09:30)
[2020-01-09 17:00] VITALS: BP 110/47
== END 2020-01-09 17:42 | disposition home or self-care (01) ==
LOC: N.ED 21:17 → N.EDINP 21:17 → SUATTDRO 01-08 02:07 → N.3E 01-08 03:32
PROVIDERS: ADMIT Internal Medicine; ATTEND Internal Medicine

== ENCOUNTER 2020-03-05 20:42 | Observation (INO) ==
[2020-03-05 22:37] LABS: Basophils % 0.2 % (0.0-0.8); Eosinophils # 0.4 10*3/uL (0.0-0.87); Eosinophils % 5.8 % (0.00-10.9); Hematocrit 26.5 VOL% (42.0-52.0); Hemoglobin 8.6 GM/DL (14.0-18.0); Immature Granulocytes % 0.5 %; Immature Granulocytes Absolute 0.03 #; Lymphocytes # 1.2 10*3/uL (1.4-4.0); Lymphocytes % 19.2 % (21.2-54.2); Mean Corpuscular HGB Conc 32.5 GM/DL (32-36); Mean Platelet Volume 11.1 FL (9.6-12.0); Monocytes % 16.5 % (1.7-12.7); Neutrophils % 57.8 % (38.7-73.9); Platelet Count 128 T/CUMM (130-400); Red Blood Count 2.76 MC/CUMM (3.8-5.5); Red Cell Distribution Width 17.6 % (9.3-17.3)
[2020-03-05 22:47] LABS: PT Patient Result 10.3 SECS (9.8-11.9)
[2020-03-05 22:58] LABS: Albumin 2.5 G/DL (3.4-5.0); Bilirubin,Total 0.5 MG/DL (0.2-1.0); Calcium 8.7 MG/DL (8.5-10.1); Osmolality,Calculated 269.4 MOS/KG (273-304); Total Protein 6.4 G/DL (6.4-8.3)
[2020-03-05 23:22] LABS: Eosinophils 4 % (0-10); Lymphocytes 17 % (20-55); Segmented Neutrophils 63 % (50-85); Total Cells Counted 100
[2020-03-05 23:24] LABS: Hypochromasia 3+
[2020-03-05] MEDS ORDERED: ONDANSETRON 4 MG/2 ML VIAL IV ONE (23:24)
[2020-03-05] MEDS ORDERED: MORPHINE 4 MG/1 ML VIAL IV STA (23:24)
[2020-03-05] MEDS ORDERED: ONDANSETRON 4 MG/2 ML VIAL ONE (23:24)
[2020-03-05] MEDS ORDERED: MORPHINE 4 MG/1 ML VIAL ONE (23:25)
[2020-03-05 23:26] LABS: Platelet Estimate Adequate
[2020-03-05] MEDS ORDERED: DEXTROSE 50% 25 GM/50 ML VIAL IV PRN (23:51)
[2020-03-05] MEDS ORDERED: ALBUTEROL 2.5 MG/3 ML NEB RESP TX PRN (23:51)
[2020-03-05] MEDS ORDERED: ACETAMINOPHEN 325 MG TABLET PO PRN (23:51)
[2020-03-05] MEDS ORDERED: hydrALAZINE 20 MG/1 ML VIAL IV PRN (23:51)
[2020-03-05] MEDS ORDERED: ZALEPLON 5 MG CAPSULE PO PRN (23:51)
[2020-03-05] MEDS ORDERED: GLUCAGON 1 MG VIAL IM PRN (23:51)
[2020-03-05] MEDS ORDERED: NICOTINE 21 MG/24 HR PATCH TRANSDERM PRN (23:51)
[2020-03-05] MEDS ORDERED: guaiFENesin/DM ER 600-30 MG TABLET PO PRN (23:51)
[2020-03-05] MEDS ORDERED: diphenhydrAMINE CAP 25 MG CAPSULE PO PRN (23:51)
[2020-03-06] MEDS ORDERED: DEXTROSE 5% NACL 0.9% 1,000 ML IV SCH
[2020-03-06] MEDS: MORPHINE 4 MG/1 ML VIAL IV PRN ×5 (01:40→20:34)
[2020-03-06] MEDS: ONDANSETRON 4 MG/2 ML VIAL IV PRN ×5 (01:43→20:33)
[2020-03-06 06:34] LABS: Basophils % 0.2 % (0.0-0.8); Eosinophils # 0.3 10*3/uL (0.0-0.87); Eosinophils % 6.6 % (0.00-10.9); Hematocrit 25.6 VOL% (42.0-52.0); Hemoglobin 8.2 GM/DL (14.0-18.0); Immature Granulocytes % 0.4 %; Immature Granulocytes Absolute 0.02 #; Lymphocytes # 1.1 10*3/uL (1.4-4.0); Mean Corpuscular Volume 97.3 FL (87-102); Mean Platelet Volume 11.8 FL (9.6-12.0); Monocytes % 16.9 % (1.7-12.7); Neutrophils % 52.9 % (38.7-73.9); Red Blood Count 2.63 MC/CUMM (3.8-5.5); Red Cell Distribution Width 17.6 % (9.3-17.3); White Blood Count 4.6 T/CUMM (4-12)
[2020-03-06 06:39] LABS: Platelet Count 91 T/CUMM (130-400)
[2020-03-06 07:15] LABS: Eosinophils 5 % (0-10); Hypochromasia 1+; Lymphocytes 19 % (20-55); Segmented Neutrophils 62 % (50-85); Total Cells Counted 100
[2020-03-06 07:16] LABS: Anisocytosis 1+; Platelet Estimate Decreased
[2020-03-06] MEDS: ENOXAPARIN 40 MG/0.4 ML SYRINGE SUBCUT SCH (09:40)
[2020-03-06] MEDS: SPIRONOLACTONE 25 MG TABLET PO SCH (09:41)
[2020-03-06] MEDS: FUROSEMIDE 40 MG TABLET PO SCH (09:42)
[2020-03-06] MEDS: PANTOPRAZOLE 40 MG TABLET PO SCH (09:43)
[2020-03-06] MEDS: SUCRALFATE 1 GM TABLET PO SCH ×4 (09:44→20:32)
[2020-03-06] MEDS: LACTULOSE 20 GM/30 ML UDCUP PO SCH ×4 (09:45→20:32)
[2020-03-06] MEDS: DOCUSATE SODIUM 100 MG CAPSULE PO SCH ×3 (09:49→21:35)
[2020-03-06] MEDS ORDERED: IRON 18 MG PO SCH (18:00)
[2020-03-07] MEDS: ONDANSETRON 4 MG/2 ML VIAL IV PRN ×5 (00:42→21:41)
[2020-03-07] MEDS: MORPHINE 4 MG/1 ML VIAL IV PRN ×5 (00:43→21:42)
[2020-03-07 05:51] LABS: Basophils % 0.5 % (0.0-0.8); Eosinophils # 0.3 10*3/uL (0.0-0.87); Eosinophils % 7.4 % (0.00-10.9); Hemoglobin 7.3 GM/DL (14.0-18.0); Immature Granulocytes % 0.3 %; Immature Granulocytes Absolute 0.01 #; Lymphocytes # 0.8 10*3/uL (1.4-4.0); Lymphocytes % 20.5 % (21.2-54.2); Mean Corpuscular HGB Conc 31.7 GM/DL (32-36); Mean Corpuscular Volume 97.9 FL (87-102); Mean Platelet Volume 11.5 FL (9.6-12.0); Monocytes % 15.9 % (1.7-12.7); Neutrophils % 55.4 % (38.7-73.9); Platelet Count 88 T/CUMM (130-400); Red Blood Count 2.35 MC/CUMM (3.8-5.5); Red Cell Distribution Width 17.8 % (9.3-17.3); White Blood Count 3.7 T/CUMM (4-12)
[2020-03-07 06:05] LABS: Calcium 7.9 MG/DL (8.5-10.1); Osmolality,Calculated 270.2 MOS/KG (273-304)
[2020-03-07 06:27] LABS: Anisocytosis 1+; Eosinophils 10 % (0-10); Hypochromasia 2+; Lymphocytes 19 % (20-55); Microcytosis 1+; Segmented Neutrophils 61 % (50-85); Total Cells Counted 100
[2020-03-07 06:28] LABS: Ovalocytes Slight; Platelet Estimate Decreased; Tear Drop Cells Slight
[2020-03-07] MEDS ORDERED: ALBUMIN 25% 12.5 GM in PREMIX 1 EACH IV ONE (09:19)
[2020-03-07] MEDS: DOCUSATE SODIUM 100 MG CAPSULE PO SCH ×3 (10:22→23:54)
[2020-03-07] MEDS: SPIRONOLACTONE 25 MG TABLET PO SCH (10:22)
[2020-03-07] MEDS: LACTULOSE 20 GM/30 ML UDCUP PO SCH ×4 (10:22→21:46)
[2020-03-07] MEDS: PANTOPRAZOLE 40 MG TABLET PO SCH (10:22)
[2020-03-07] MEDS: SUCRALFATE 1 GM TABLET PO SCH ×4 (10:22→21:43)
[2020-03-07] MEDS: FUROSEMIDE 40 MG TABLET PO SCH (10:25)
[2020-03-07] MEDS: ENOXAPARIN 40 MG/0.4 ML SYRINGE SUBCUT SCH ×2 (10:28→10:38)
[2020-03-07] MEDS: CIPROFLOXACIN 250 MG TABLET PO SCH (11:45)
[2020-03-08 04:15] LABS: Basophils % 0.3 % (0.0-0.8); Eosinophils # 0.2 10*3/uL (0.0-0.87); Eosinophils % 5.4 % (0.00-10.9); Hematocrit 22.3 VOL% (42.0-52.0); Hemoglobin 7.2 GM/DL (14.0-18.0); Immature Granulocytes % 0.3 %; Immature Granulocytes Absolute 0.01 #; Lymphocytes # 0.8 10*3/uL (1.4-4.0); Lymphocytes % 22.7 % (21.2-54.2); Mean Corpuscular HGB Conc 32.3 GM/DL (32-36); Mean Corpuscular Volume 96.5 FL (87-102); Mean Platelet Volume 11.1 FL (9.6-12.0); Monocytes % 16.1 % (1.7-12.7); Neutrophils % 55.2 % (38.7-73.9); Platelet Count 94 T/CUMM (130-400); Red Blood Count 2.31 MC/CUMM (3.8-5.5); Red Cell Distribution Width 17.3 % (9.3-17.3); White Blood Count 3.4 T/CUMM (4-12)
[2020-03-08 04:38] LABS: Eosinophils 1 % (0-10); Hypochromasia 2+; Lymphocytes 19 % (20-55); Microcytosis 1+; Ovalocytes Slight; Platelet Estimate Decreased; Segmented Neutrophils 67 % (50-85); Total Cells Counted 100
[2020-03-08] MEDS: ONDANSETRON 4 MG/2 ML VIAL IV PRN ×3 (04:43→17:06)
[2020-03-08] MEDS: MORPHINE 4 MG/1 ML VIAL IV PRN ×3 (04:43→17:03)
[2020-03-08 09:18] LABS: Bilirubin,Total 0.4 MG/DL (0.2-1.0); Osmolality,Calculated 269.4 MOS/KG (273-304); Total Protein 5.2 G/DL (6.4-8.3)
[2020-03-08] MEDS: PANTOPRAZOLE 40 MG TABLET PO SCH (09:19)
[2020-03-08] MEDS: FUROSEMIDE 40 MG TABLET PO SCH (09:19)
[2020-03-08] MEDS: SPIRONOLACTONE 25 MG TABLET PO SCH (09:19)
[2020-03-08] MEDS: CIPROFLOXACIN 250 MG TABLET PO SCH (09:20)
[2020-03-08] MEDS: ENOXAPARIN 40 MG/0.4 ML SYRINGE SUBCUT SCH (09:20)
[2020-03-08] MEDS: SUCRALFATE 1 GM TABLET PO SCH ×3 (09:20→17:07)
[2020-03-08] MEDS: DOCUSATE SODIUM 100 MG CAPSULE PO SCH (09:20)
[2020-03-08] MEDS: LACTULOSE 20 GM/30 ML UDCUP PO SCH ×3 (09:20→17:07)
[2020-03-08 09:39] LABS: Neutrophils,Peritoneal Fluid 65 %
[2020-03-08 09:41] LABS: RBC,Peritoneal Fluid 57 T/CUMM
[2020-03-08] MEDS ORDERED: SODIUM CHLORIDE 0.9% 1,000 ML IV PRN (10:55)
[2020-03-08 18:39] VITALS: BP 124/65
== END 2020-03-08 19:05 | disposition home or self-care (01) ==
LOC: N.ED 20:42 → N.EDINP 20:42 → SUATTDRO 23:51 → N.EDINP 03-06 00:38 → N.4E 03-06 00:40
PROVIDERS: ADMIT Hospitalist; ATTEND Family Medicine

== ENCOUNTER 2020-03-31 18:42 | Observation (INO) ==
[2020-03-31 19:04] LABS: Basophils % 0.4 % (0.0-0.8); Eosinophils # 0.3 10*3/uL (0.0-0.87); Eosinophils % 3.7 % (0.00-10.9); Hematocrit 22.4 VOL% (42.0-52.0); Hemoglobin 7.2 GM/DL (14.0-18.0); Immature Granulocytes % 0.8 %; Immature Granulocytes Absolute 0.06 #; Lymphocytes # 1.2 10*3/uL (1.4-4.0); Lymphocytes % 15.4 % (21.2-54.2); Mean Corpuscular HGB Conc 32.1 GM/DL (32-36); Mean Corpuscular Volume 99.1 FL (87-102); Mean Platelet Volume 10.4 FL (9.6-12.0); Monocytes % 16.1 % (1.7-12.7); Neutrophils % 63.6 % (38.7-73.9); Platelet Count 138 T/CUMM (130-400); Red Blood Count 2.26 MC/CUMM (3.8-5.5); White Blood Count 7.5 T/CUMM (4-12)
[2020-03-31 19:28] LABS: Anisocytosis 1+; Eosinophils 3 % (0-10); Hypochromasia 2+; Lymphocytes 15 % (20-55); Platelet Estimate Adequate; Segmented Neutrophils 64 % (50-85); Target Cells Few; Total Cells Counted 100
[2020-03-31 19:29] LABS: Polychromasia Few
[2020-03-31 19:50] LABS: Albumin 2.6 G/DL (3.4-5.0); Bilirubin,Total 0.4 MG/DL (0.2-1.0); Osmolality,Calculated 262.8 MOS/KG (273-304); Total Protein 6.1 G/DL (6.4-8.3)
[2020-03-31] MEDS ORDERED: PANTOPRAZOLE INJ 80 MG in SODIUM CHLORIDE 0.9% 100 ML IV ONE (20:55)
[2020-03-31] MEDS ORDERED: diphenhydrAMINE CAP 25 MG CAPSULE PO PRN (21:24)
[2020-03-31] MEDS ORDERED: guaiFENesin/DM ER 600-30 MG TABLET PO PRN (21:24)
[2020-03-31] MEDS ORDERED: hydrALAZINE 20 MG/1 ML VIAL IV PRN (21:24)
[2020-03-31] MEDS ORDERED: NICOTINE 21 MG/24 HR PATCH TRANSDERM PRN (21:24)
[2020-03-31] MEDS ORDERED: DEXTROSE 50% 25 GM/50 ML VIAL IV PRN (21:24)
[2020-03-31] MEDS ORDERED: GLUCAGON 1 MG VIAL IM PRN (21:24)
[2020-03-31] MEDS ORDERED: SODIUM CHLORIDE 0.9% 1,000 ML IV PRN (21:24)
[2020-03-31] MEDS ORDERED: NALOXONE 0.4 MG/ML VIAL ONE (21:42)
[2020-03-31] MEDS ORDERED: PANTOPRAZOLE 40 MG VIAL IV ONE (21:44)
[2020-03-31] MEDS: ONDANSETRON 4 MG/2 ML VIAL IV PRN (23:57)
[2020-04-01] MEDS ORDERED: INFLUENZA VIRUS VACCINE 0.5 ML SYRINGE IM ONE (00:20)
[2020-04-01] MEDS: ONDANSETRON 4 MG/2 ML VIAL IV PRN ×4 (05:17→20:57)
[2020-04-01] MEDS: MORPHINE 4 MG/1 ML VIAL IV PRN ×5 (05:21→20:56)
[2020-04-01] MEDS: PANTOPRAZOLE INJ 200 MG in SODIUM CHLORIDE 0.9% 250 ML IV SCH (06:00)
[2020-04-01 06:24] LABS: Basophils % 0.4 % (0.0-0.8); Eosinophils # 0.2 10*3/uL (0.0-0.87); Eosinophils % 4.8 % (0.00-10.9); Hematocrit 22.4 VOL% (42.0-52.0); Hemoglobin 7.2 GM/DL (14.0-18.0); Immature Granulocytes % 0.8 %; Immature Granulocytes Absolute 0.04 #; Lymphocytes % 19.6 % (21.2-54.2); Mean Corpuscular HGB Conc 32.1 GM/DL (32-36); Mean Corpuscular Volume 98.7 FL (87-102); Mean Platelet Volume 10.5 FL (9.6-12.0); Monocytes % 13.9 % (1.7-12.7); Neutrophils % 60.5 % (38.7-73.9); Red Blood Count 2.27 MC/CUMM (3.8-5.5); Red Cell Distribution Width 18.6 % (9.3-17.3)
[2020-04-01 06:36] LABS: Platelet Count 109 T/CUMM (130-400)
[2020-04-01 06:45] LABS: Albumin 2.3 G/DL (3.4-5.0); Bilirubin,Total 0.9 MG/DL (0.2-1.0); Calcium 7.9 MG/DL (8.5-10.1); Osmolality,Calculated 266.7 MOS/KG (273-304); Total Protein 5.6 G/DL (6.4-8.3)
[2020-04-01 06:57] LABS: Anisocytosis 1+; Polychromasia Few
[2020-04-01 06:58] LABS: Hypochromasia 2+; Platelet Estimate Adequate
[2020-04-01] MEDS ORDERED: ALBUMIN 25% 12.5 GM in PREMIX 1 EACH IV ONE (13:37)
[2020-04-01] MEDS ORDERED: ALBUMIN 25% 12.5 GM/50 ML VIAL IV ONE (13:54)
[2020-04-01 15:20] LABS: RBC,Peritoneal Fluid 4995 T/CUMM
[2020-04-01] MEDS: CIPROFLOXACIN 250 MG TABLET PO SCH (15:28)
[2020-04-01 16:02] LABS: Neutrophils,Peritoneal Fluid 38 %
[2020-04-01] MEDS ORDERED: CYCLOBENZAPRINE 10 MG TABLET PO PRN ×2 (19:08→23:21)
[2020-04-02] MEDS: ONDANSETRON 4 MG/2 ML VIAL IV PRN ×2 (01:44→09:50)
[2020-04-02] MEDS: MORPHINE 4 MG/1 ML VIAL IV PRN (01:46)
[2020-04-02 06:05] LABS: Basophils % 0.4 % (0.0-0.8); Eosinophils # 0.2 10*3/uL (0.0-0.87); Eosinophils % 4.1 % (0.00-10.9); Hemoglobin 7.4 GM/DL (14.0-18.0); Immature Granulocytes % 0.4 %; Immature Granulocytes Absolute 0.02 #; Lymphocytes % 19.6 % (21.2-54.2); Mean Corpuscular HGB Conc 32.2 GM/DL (32-36); Mean Corpuscular Volume 98.7 FL (87-102); Mean Platelet Volume 10.8 FL (9.6-12.0); Monocytes % 13.2 % (1.7-12.7); Neutrophils % 62.3 % (38.7-73.9); Red Blood Count 2.33 MC/CUMM (3.8-5.5); Red Cell Distribution Width 18.6 % (9.3-17.3); White Blood Count 4.8 T/CUMM (4-12)
[2020-04-02 06:08] LABS: Platelet Count 104 T/CUMM (130-400)
[2020-04-02] MEDS: PANTOPRAZOLE INJ 200 MG in SODIUM CHLORIDE 0.9% 250 ML IV SCH (06:20)
[2020-04-02 06:23] LABS: Calcium 7.9 MG/DL (8.5-10.1); Osmolality,Calculated 268.5 MOS/KG (273-304)
[2020-04-02 06:51] LABS: Hypochromasia 2+; Microcytosis 1+; Platelet Estimate Decreased
[2020-04-02] MEDS: CIPROFLOXACIN 250 MG TABLET PO SCH (09:46)
[2020-04-02 12:38] VITALS: BP 96/37
[2020-04-02] MEDS ORDERED: PANTOPRAZOLE 40 MG VIAL IV SCH (21:00)
== END 2020-04-02 16:38 | disposition home or self-care (01) ==
LOC: N.ED 18:42 → N.EDINP 18:42 → N.3E 23:11
PROVIDERS: ADMIT Internal Medicine; ATTEND Internal Medicine

== ENCOUNTER 2020-09-14 20:00 | Inpatient (IN) ==
[2020-09-14] MEDS ORDERED: ONDANSETRON 4 MG/2 ML VIAL IV STA (21:33)
[2020-09-14] MEDS ORDERED: PANTOPRAZOLE 40 MG VIAL IV STA (21:33)
[2020-09-14] MEDS ORDERED: MORPHINE 4 MG/1 ML VIAL IV STA (21:35)
[2020-09-14 21:51] LABS: Basophils % 0.3 % (0.0-0.8); Eosinophils # 0.2 10*3/uL (0.0-0.87); Eosinophils % 5.3 % (0.00-10.9); Hematocrit 18.8 VOL% (42.0-52.0); Immature Granulocytes % 0.8 %; Immature Granulocytes Absolute 0.03 #; Lymphocytes # 0.6 10*3/uL (1.4-4.0); Lymphocytes % 15.4 % (21.2-54.2); Mean Corpuscular HGB Conc 30.3 GM/DL (32-36); Mean Corpuscular Volume 103.9 FL (87-102); Mean Platelet Volume 11.2 FL (9.6-12.0); Monocytes % 10.6 % (1.7-12.7); Neutrophils % 67.6 % (38.7-73.9); Platelet Count 102 T/CUMM (130-400); Red Blood Count 1.81 MC/CUMM (3.8-5.5); Red Cell Distribution Width 15.9 % (9.3-17.3)
[2020-09-14 21:54] LABS: Hemoglobin 5.7 GM/DL (14.0-18.0)
[2020-09-14 21:56] LABS: Albumin 2.8 G/DL (3.4-5.0); Bilirubin,Total 0.5 MG/DL (0.2-1.0); Calcium 7.7 MG/DL (8.5-10.1); Potassium 3.7 MMOL/L (3.5-5.1); Total Protein 5.2 G/DL (6.4-8.2)
[2020-09-14] MEDS ORDERED: SODIUM CHLORIDE 0.9% 1,000 ML IV PRN (22:25)
[2020-09-14 22:32] LABS: Eosinophils 3 % (0-10); Lymphocytes 18 % (20-55); Platelet Estimate Adequate; Segmented Neutrophils 74 % (50-85); Total Cells Counted 100
[2020-09-14 22:33] LABS: Macrocytosis 1+; Polychromasia 1+
[2020-09-14] MEDS ORDERED: MORPHINE 4 MG/1 ML VIAL IV PRN (22:34)
[2020-09-14] MEDS ORDERED: guaiFENesin/DM ER 600-30 MG TABLET PO PRN (22:34)
[2020-09-14] MEDS ORDERED: DEXTROSE 50% 25 GM/50 ML VIAL IV PRN (22:34)
[2020-09-14] MEDS ORDERED: ZALEPLON 5 MG CAPSULE PO PRN (22:34)
[2020-09-14] MEDS ORDERED: DOCUSATE SODIUM 100 MG CAPSULE PO PRN (22:34)
[2020-09-14] MEDS ORDERED: ACETAMINOPHEN 325 MG TABLET PO PRN (22:34)
[2020-09-14] MEDS ORDERED: GLUCAGON 1 MG VIAL IM PRN (22:34)
[2020-09-14] MEDS ORDERED: hydrALAZINE 20 MG/1 ML VIAL IV PRN (22:34)
[2020-09-14] MEDS ORDERED: diphenhydrAMINE CAP 25 MG CAPSULE PO PRN (22:34)
[2020-09-14] MEDS ORDERED: NICOTINE 21 MG/24 HR PATCH TRANSDERM PRN (22:34)
[2020-09-15] MEDS: FAMOTIDINE 20 MG/2 ML VIAL IV SCH ×3 (01:04→20:55)
[2020-09-15 08:40] LABS: Basophils % 0.3 % (0.0-0.8); Eosinophils # 0.2 10*3/uL (0.0-0.87); Eosinophils % 5.3 % (0.00-10.9); Hematocrit 21.9 VOL% (42.0-52.0); Immature Granulocytes % 0.5 %; Immature Granulocytes Absolute 0.02 #; Lymphocytes # 0.8 10*3/uL (1.4-4.0); Lymphocytes % 19.6 % (21.2-54.2); Mean Corpuscular HGB Conc 31.5 GM/DL (32-36); Mean Corpuscular Volume 100.9 FL (87-102); Monocytes % 10.7 % (1.7-12.7); Neutrophils % 63.6 % (38.7-73.9); Red Blood Count 2.17 MC/CUMM (3.8-5.5); Red Cell Distribution Width 17.1 % (9.3-17.3); White Blood Count 3.9 T/CUMM (4-12)
[2020-09-15 08:42] LABS: Hemoglobin 6.9 GM/DL (14.0-18.0)
[2020-09-15 08:43] LABS: Platelet Count 90 T/CUMM (130-400)
[2020-09-15 08:53] LABS: Calcium 7.9 MG/DL (8.5-10.1); Potassium 3.7 MMOL/L (3.5-5.1)
[2020-09-15] MEDS: PANTOPRAZOLE INJ 200 MG in SODIUM CHLORIDE 0.9% 250 ML IV SCH (08:54)
[2020-09-15 08:56] LABS: Hypochromasia 1+; Microcytosis 1+
[2020-09-15 08:57] LABS: Platelet Estimate Decreased
[2020-09-15 13:24] LABS: Hematocrit 25.8 VOL% (42.0-52.0); Hemoglobin 7.9 GM/DL (14.0-18.0)
[2020-09-15] MEDS: ONDANSETRON 4 MG/2 ML VIAL IV PRN (18:39)
[2020-09-16 05:10] LABS: Basophils % 0.5 % (0.0-0.8); Eosinophils # 0.2 10*3/uL (0.0-0.87); Hematocrit 24.8 VOL% (42.0-52.0); Hemoglobin 7.8 GM/DL (14.0-18.0); Immature Granulocytes % 0.5 %; Immature Granulocytes Absolute 0.02 #; Lymphocytes # 0.8 10*3/uL (1.4-4.0); Lymphocytes % 18.8 % (21.2-54.2); Mean Corpuscular HGB Conc 31.5 GM/DL (32-36); Mean Corpuscular Volume 99.6 FL (87-102); Mean Platelet Volume 11.1 FL (9.6-12.0); Monocytes % 13.6 % (1.7-12.7); Neutrophils % 60.6 % (38.7-73.9); Red Blood Count 2.49 MC/CUMM (3.8-5.5); Red Cell Distribution Width 19.4 % (9.3-17.3)
[2020-09-16 05:20] LABS: Platelet Count 83 T/CUMM (130-400)
[2020-09-16 05:38] LABS: Calcium 7.9 MG/DL (8.5-10.1); Potassium 3.6 MMOL/L (3.5-5.1)
[2020-09-16 06:05] LABS: Anisocytosis 1+; Macrocytosis 1+; Ovalocytes Few; Platelet Estimate Decreased; Tear Drop Cells Few
[2020-09-16] MEDS: FAMOTIDINE 20 MG/2 ML VIAL IV SCH (08:41)
[2020-09-16] MEDS: ONDANSETRON 4 MG/2 ML VIAL IV PRN (08:41)
[2020-09-16] MEDS ORDERED: SODIUM CHLORIDE 0.9% 1,000 ML IV PRN (09:49)
[2020-09-16] MEDS ORDERED: LACTATED RINGERS 1,000 ML IV SCH (11:30)
[2020-09-16] MEDS ORDERED: ETOMIDATE 20 MG/10 ML VIAL IV ONE (12:14)
[2020-09-16] MEDS ORDERED: propofoL 200 MG/20 ML VIAL IV ONE (12:14)
[2020-09-16] MEDS ORDERED: LIDOCAINE 2% 5 ML VIAL ONE ×2 (12:14→12:31)
[2020-09-16] MEDS: PANTOPRAZOLE INJ 200 MG in SODIUM CHLORIDE 0.9% 250 ML IV SCH (15:10)
[2020-09-16] MEDS: PANTOPRAZOLE 40 MG TABLET PO SCH (17:36)
[2020-09-16 20:20] LABS: Hematocrit 26.8 VOL% (42.0-52.0); Hemoglobin 8.7 GM/DL (14.0-18.0)
[2020-09-17] MEDS: PANTOPRAZOLE 40 MG TABLET PO SCH (05:44)
[2020-09-17 05:49] LABS: Basophils % 0.5 % (0.0-0.8); Eosinophils # 0.2 10*3/uL (0.0-0.87); Eosinophils % 5.4 % (0.00-10.9); Hemoglobin 8.5 GM/DL (14.0-18.0); Immature Granulocytes % 0.3 %; Immature Granulocytes Absolute 0.01 #; Lymphocytes # 0.8 10*3/uL (1.4-4.0); Lymphocytes % 21.5 % (21.2-54.2); Mean Corpuscular HGB Conc 32.7 GM/DL (32-36); Mean Corpuscular Volume 94.5 FL (87-102); Mean Platelet Volume 11.5 FL (9.6-12.0); Monocytes % 13.6 % (1.7-12.7); Neutrophils % 58.7 % (38.7-73.9); Platelet Count 88 T/CUMM (130-400); Red Blood Count 2.75 MC/CUMM (3.8-5.5); Red Cell Distribution Width 20.2 % (9.3-17.3); White Blood Count 3.9 T/CUMM (4-12)
[2020-09-17 06:01] LABS: Calcium 7.9 MG/DL (8.5-10.1); Osmolality,Calculated 273.1 MOS/KG (273-304); Potassium 3.7 MMOL/L (3.5-5.1)
[2020-09-17 12:18] VITALS: BP 129/49
== END 2020-09-17 12:20 | disposition home or self-care (01) | DRG 442 ==
LOC: N.ED 20:00 → N.EDINP 22:34 → N.5E 09-15 00:20
PROVIDERS: ADMIT Hospitalist; ATTEND Hospitalist

== ENCOUNTER 2021-01-09 18:14 | Inpatient (IN) ==
[2021-01-09 19:55] LABS: Basophils % 0.3 % (0.0-0.8); Eosinophils # 0.4 10*3/uL (0.0-0.87); Eosinophils % 6.3 % (0.00-10.9); Hematocrit 20.8 VOL% (42.0-52.0); Hemoglobin 6.5 GM/DL (14.0-18.0); Immature Granulocytes % 0.5 %; Immature Granulocytes Absolute 0.03 #; Lymphocytes % 17.5 % (21.2-54.2); Mean Corpuscular HGB Conc 31.3 GM/DL (32-36); Mean Corpuscular Volume 100.5 FL (87-102); Monocytes % 14.7 % (1.7-12.7); Neutrophils % 60.7 % (38.7-73.9); Platelet Count 126 T/CUMM (130-400); Red Blood Count 2.07 MC/CUMM (3.8-5.5); Red Cell Distribution Width 20.4 % (9.3-17.3); White Blood Count 5.8 T/CUMM (4-12)
[2021-01-09 20:12] LABS: Albumin 2.8 G/DL (3.4-5.0); Bilirubin,Total 0.5 MG/DL (0.20-1.00); Calcium 8.3 MG/DL (8.5-10.1); Osmolality,Calculated 270.5 MOS/KG (273-304); Potassium 4.4 MMOL/L (3.5-5.1); Total Protein 5.3 G/DL (6.4-8.2)
[2021-01-09 20:35] LABS: PT Patient Result 11.1 SECS (10.5-12.0); Partial Thromboplastin Time 25.5 SECS (23.9-33.8)
[2021-01-09] MEDS ORDERED: MORPHINE 2 MG/1 ML SYRINGE IV STA (21:19)
[2021-01-09] MEDS ORDERED: ONDANSETRON 4 MG/2 ML VIAL IV STA (21:19)
[2021-01-09] MEDS ORDERED: GLUCAGON 1 MG VIAL IM PRN (23:34)
[2021-01-09] MEDS ORDERED: DEXTROSE 50% 25 GM/50 ML VIAL IV PRN (23:34)
[2021-01-09] MEDS ORDERED: MAGNESIUM SULF RIDER 2 GM/50 ML PREMIX IV PRN (23:38)
[2021-01-09] MEDS ORDERED: MAGNESIUM SULF RIDER 4 GM/100 ML PREMIX IV PRN (23:38)
[2021-01-09] MEDS ORDERED: ONDANSETRON 4 MG/2 ML VIAL IV PRN (23:38)
[2021-01-09] MEDS ORDERED: HYDROmorphone 2 MG/1 ML VIAL IV PRN (23:38)
[2021-01-09] MEDS ORDERED: POTASSIUM CHLORIDE RIDER 10 MEQ/100 ML PREMIX IV PRN (23:38)
[2021-01-09] MEDS ORDERED: SIMETHICONE CHEW 125 MG TABLET PO PRN (23:38)
[2021-01-09] MEDS ORDERED: SODIUM CHLORIDE 0.9% 1,000 ML IV PRN (23:46)
[2021-01-10] MEDS: PANTOPRAZOLE 40 MG VIAL IV SCH ×3 (00:18→21:03)
[2021-01-10] MEDS: SODIUM CHLORIDE 0.9% 1,000 ML IV SCH ×2 (00:55→15:09)
[2021-01-10 01:00] LABS: Hematocrit 18.9 VOL% (42.0-52.0)
[2021-01-10 01:04] LABS: Hemoglobin 5.8 GM/DL (14.0-18.0)
[2021-01-10] MEDS ORDERED: SODIUM CHLORIDE 0.9% 1,000 ML IV PRN (07:31)
[2021-01-10 07:37] LABS: Hematocrit 24.2 VOL% (42.0-52.0)
[2021-01-10 07:42] LABS: Hemoglobin 7.6 GM/DL (14.0-18.0)
[2021-01-10 07:45] LABS: PT Patient Result 10.9 SECS (10.5-12.0)
[2021-01-10 07:47] LABS: Basophils % 0.4 % (0.0-0.8); Eosinophils # 0.3 10*3/uL (0.0-0.87); Eosinophils % 5.5 % (0.00-10.9); Hematocrit 24.6 VOL% (42.0-52.0); Hemoglobin 7.7 GM/DL (14.0-18.0); Immature Granulocytes % 0.6 %; Immature Granulocytes Absolute 0.03 #; Lymphocytes % 19.5 % (21.2-54.2); Mean Corpuscular HGB Conc 31.3 GM/DL (32-36); Mean Corpuscular Volume 98.4 FL (87-102); Mean Platelet Volume 10.9 FL (9.6-12.0); Monocytes % 12.3 % (1.7-12.7); Neutrophils % 61.7 % (38.7-73.9); Red Cell Distribution Width 18.9 % (9.3-17.3); White Blood Count 4.9 T/CUMM (4-12)
[2021-01-10 07:48] LABS: Platelet Count 98 T/CUMM (130-400)
[2021-01-10 07:52] LABS: Albumin 2.5 G/DL (3.4-5.0); Bilirubin,Total 0.9 MG/DL (0.20-1.00); Calcium 7.8 MG/DL (8.5-10.1); Osmolality,Calculated 270.4 MOS/KG (273-304); Potassium 4.2 MMOL/L (3.5-5.1); Total Protein 4.9 G/DL (6.4-8.2)
[2021-01-10 08:03] LABS: Hypochromasia 1+; Microcytosis 1+; Platelet Estimate Decreased
[2021-01-10 08:18] LABS: Hemoglobin 7.9 GM/DL (14.0-18.0)
[2021-01-10] MEDS: DOCUSATE SODIUM 100 MG CAPSULE PO SCH ×2 (10:14→21:02)
[2021-01-10 11:37] LABS: Hematocrit 24.5 VOL% (42.0-52.0); Hemoglobin 7.8 GM/DL (14.0-18.0)
[2021-01-10] MEDS ORDERED: diphenhydrAMINE CAP 25 MG CAPSULE PO PRN (12:29)
[2021-01-10 22:39] LABS: Hematocrit 30.8 VOL% (42.0-52.0)
[2021-01-10 22:41] LABS: Hemoglobin 10.1 GM/DL (14.0-18.0)
[2021-01-11] MEDS: SODIUM CHLORIDE 0.9% 1,000 ML IV SCH ×2 (05:33→17:52)
[2021-01-11 06:06] LABS: Basophils % 0.4 % (0.0-0.8); Eosinophils # 0.3 10*3/uL (0.0-0.87); Eosinophils % 6.7 % (0.00-10.9); Hematocrit 29.9 VOL% (42.0-52.0); Hemoglobin 9.8 GM/DL (14.0-18.0); Immature Granulocytes % 0.4 %; Immature Granulocytes Absolute 0.02 #; Lymphocytes # 0.8 10*3/uL (1.4-4.0); Lymphocytes % 15.3 % (21.2-54.2); Mean Corpuscular HGB Conc 32.8 GM/DL (32-36); Mean Corpuscular Volume 94.6 FL (87-102); Mean Platelet Volume 11.4 FL (9.6-12.0); Monocytes % 14.3 % (1.7-12.7); Neutrophils % 62.9 % (38.7-73.9); Red Blood Count 3.16 MC/CUMM (3.8-5.5); Red Cell Distribution Width 18.6 % (9.3-17.3); White Blood Count 4.9 T/CUMM (4-12)
[2021-01-11 06:09] LABS: PT Patient Result 11.2 SECS (10.5-12.0)
[2021-01-11 06:21] LABS: Platelet Count 86 T/CUMM (130-400)
[2021-01-11 06:24] LABS: Albumin 2.4 G/DL (3.4-5.0); Bilirubin,Total 1.7 MG/DL (0.20-1.00); Calcium 7.4 MG/DL (8.5-10.1); Osmolality,Calculated 273.1 MOS/KG (273-304); Potassium 4.4 MMOL/L (3.5-5.1); Total Protein 4.8 G/DL (6.4-8.2)
[2021-01-11 06:28] LABS: Hypochromasia 1+; Microcytosis 1+; Platelet Estimate Decreased
[2021-01-11] MEDS ORDERED: LACTATED RINGERS 1,000 ML IV SCH (08:00)
[2021-01-11] MEDS: PANTOPRAZOLE 40 MG VIAL IV SCH (09:31)
[2021-01-11] MEDS: DOCUSATE SODIUM 100 MG CAPSULE PO SCH (09:37)
[2021-01-11 14:30] VITALS: BP 124/45
== END 2021-01-11 16:45 | disposition home or self-care (01) | DRG 442 ==
LOC: N.ED 18:14 → N.EDINP 23:33 → N.4E 01-10 00:18
PROVIDERS: ADMIT Internal Medicine; ATTEND Internal Medicine

== ENCOUNTER 2021-02-08 03:39 | Inpatient (IN) ==
[2021-02-08] MEDS ORDERED: ONDANSETRON 4 MG/2 ML VIAL IV STA (04:03)
[2021-02-08] MEDS ORDERED: PANTOPRAZOLE 40 MG VIAL IV STA (04:03)
[2021-02-08 05:19] LABS: Basophils % 0.7 % (0.0-0.8); Eosinophils # 0.2 10*3/uL (0.0-0.87); Eosinophils % 5.3 % (0.00-10.9); Immature Granulocytes % 0.3 %; Immature Granulocytes Absolute 0.01 #; Lymphocytes # 0.5 10*3/uL (1.4-4.0); Lymphocytes % 17.9 % (21.2-54.2); Mean Corpuscular HGB Conc 31.8 GM/DL (32-36); Mean Corpuscular Volume 104.2 FL (87-102); Monocytes % 14.3 % (1.7-12.7); Neutrophils % 61.5 % (38.7-73.9); Red Blood Count 1.66 MC/CUMM (3.8-5.5); Red Cell Distribution Width 18.3 % (9.3-17.3)
[2021-02-08 05:37] LABS: Alanine Aminotransferase 31 U/L (16-61); Albumin 2.8 G/DL (3.4-5.0); Alkaline Phosphatase 159 U/L (45-117); Amylase 46 U/L (25-115); Aspartate Amino Transferase 39 U/L (0-37); Blood Urea Nitrogen 35 MG/DL (7-18); Calcium 8.2 MG/DL (8.5-10.1); Carbon Dioxide 22 MMOL/L (21-32); Estimated Glom Filtration Rate 53 ML/MIN; Glucose 91 MG/DL (74-106); Osmolality,Calculated 282.7 MOS/KG (273-304); Potassium 4.6 MMOL/L (3.5-5.1); Sodium 138 MMOL/L (136-145)
[2021-02-08 05:50] LABS: Platelet Count 83 T/CUMM (130-400)
[2021-02-08 05:52] LABS: Hemoglobin 5.5 GM/DL (14.0-18.0)
[2021-02-08 05:53] LABS: Hematocrit 17.3 VOL% (42.0-52.0)
[2021-02-08 05:55] LABS: Hypochromasia 2+; Microcytosis 1+; Platelet Estimate Decreased
[2021-02-08] MEDS ORDERED: SODIUM CHLORIDE 0.9% 1,000 ML IV PRN (06:27)
[2021-02-08] MEDS ORDERED: OCTREOTIDE 100 MCG/ML SYRINGE IV ONE (06:29)
[2021-02-08] MEDS ORDERED: ALBUTEROL 2.5 MG/3 ML NEB RESP TX PRN (06:31)
[2021-02-08] MEDS ORDERED: FUROSEMIDE 20 MG/2 ML VIAL IV PRN (06:37)
[2021-02-08 07:51] LABS: INR 1.1
[2021-02-08] MEDS: OCTREOTIDE 500 MCG in SODIUM CHLORIDE 0.9% 100 ML IV SCH ×3 (08:23→22:01)
[2021-02-08] MEDS: LACTATED RINGERS 1,000 ML IV SCH (12:55)
[2021-02-08] MEDS ORDERED: LIDOCAINE 2% 5 ML VIAL ONE (13:44)
[2021-02-08] MEDS ORDERED: propofoL 200 MG/20 ML VIAL IV ONE (13:44)
[2021-02-08] MEDS ORDERED: ETOMIDATE 20 MG/10 ML VIAL IV ONE (13:44)
[2021-02-08] MEDS: MORPHINE 2 MG/1 ML SYRINGE IV PRN ×2 (14:59→19:56)
[2021-02-08] MEDS: ONDANSETRON 4 MG/2 ML VIAL IV PRN ×2 (15:05→19:53)
[2021-02-08 17:17] LABS: Bilirubin,Urine Negative (Negative); Blood, Urine Negative (Negative); Glucose,Urine (UA) Negative (Negative); Hyaline Casts,Urine 1 /LPF (0-3); Ketones,Urine Negative (Negative); Mucus,Urine Occasional /LPF (Occasional); Nitrite,Urine Negative (Negative); Protein,Urine Negative; RBC,Urine 4 /HPF (0-4); Squamous Epithelial Cell,Urine Occasional /HPF (0-10); Urine Appearance CLEAR (Clear); Urine Color Yellow (Yellow); Urine Specific Gravity 1.017 (1.001-1.035); Urine Urobilinogen < 2.0 EU/DL (0.2-1.0)
[2021-02-08] MEDS ORDERED: PANTOPRAZOLE 40 MG VIAL IV SCH (21:00)
[2021-02-08 23:21] LABS: Hematocrit 23.5 VOL% (42.0-52.0)
[2021-02-08 23:22] LABS: Hemoglobin 7.6 GM/DL (14.0-18.0)
[2021-02-09] MEDS ORDERED: ALUMINUM/MAGNES/SIMETH MAX STR 30 ML UDCUP PO PRN (00:03)
[2021-02-09 04:24] LABS: Basophils % 0.5 % (0.0-0.8); Eosinophils # 0.3 10*3/uL (0.0-0.87); Eosinophils % 6.6 % (0.00-10.9); Hematocrit 23.6 VOL% (42.0-52.0); Hemoglobin 7.6 GM/DL (14.0-18.0); Immature Granulocytes % 0.5 %; Immature Granulocytes Absolute 0.02 #; Lymphocytes # 0.8 10*3/uL (1.4-4.0); Lymphocytes % 21.2 % (21.2-54.2); Mean Corpuscular HGB Conc 32.2 GM/DL (32-36); Mean Corpuscular Volume 96.7 FL (87-102); Mean Platelet Volume 11.6 FL (9.6-12.0); Monocytes % 13.2 % (1.7-12.7); Platelet Count 79 T/CUMM (130-400); Red Blood Count 2.44 MC/CUMM (3.8-5.5); Red Cell Distribution Width 20.5 % (9.3-17.3); White Blood Count 3.8 T/CUMM (4-12)
[2021-02-09 04:45] LABS: Albumin 2.6 G/DL (3.4-5.0); Bilirubin,Total 2.8 MG/DL (0.20-1.00); Calcium 7.7 MG/DL (8.5-10.1); Osmolality,Calculated 285.5 MOS/KG (273-304); Potassium 4.5 MMOL/L (3.5-5.1); Total Protein 4.5 G/DL (6.4-8.2)
[2021-02-09 04:52] LABS: Hypochromasia 1+; Microcytosis 1+; Platelet Estimate Decreased
[2021-02-09] MEDS: ONDANSETRON 4 MG/2 ML VIAL IV PRN ×3 (06:35→21:30)
[2021-02-09] MEDS: MORPHINE 2 MG/1 ML SYRINGE IV PRN (06:38)
[2021-02-09] MEDS: OCTREOTIDE 500 MCG in SODIUM CHLORIDE 0.9% 100 ML IV SCH (06:51)
[2021-02-09] MEDS ORDERED: traMADol 50 MG TABLET PO PRN (07:30)
[2021-02-09] MEDS ORDERED: SODIUM CHLORIDE 0.9% 1,000 ML IV PRN (07:31)
[2021-02-09] MEDS: PANTOPRAZOLE 40 MG TABLET PO SCH ×2 (08:27→22:26)
[2021-02-09] MEDS: LACTATED RINGERS 1,000 ML IV SCH (08:40)
[2021-02-09] MEDS ORDERED: PANTOPRAZOLE 40 MG VIAL IV SCH (09:00)
[2021-02-09 13:04] LABS: Hematocrit 27.2 VOL% (42.0-52.0); Hemoglobin 8.7 GM/DL (14.0-18.0)
[2021-02-10 06:26] LABS: Basophils % 0.5 % (0.0-0.8); Eosinophils # 0.3 10*3/uL (0.0-0.87); Hematocrit 27.7 VOL% (42.0-52.0); Hemoglobin 8.9 GM/DL (14.0-18.0); Immature Granulocytes % 0.5 %; Immature Granulocytes Absolute 0.02 #; Lymphocytes # 0.8 10*3/uL (1.4-4.0); Lymphocytes % 19.5 % (21.2-54.2); Mean Corpuscular HGB Conc 32.1 GM/DL (32-36); Mean Corpuscular Volume 94.9 FL (87-102); Mean Platelet Volume 11.1 FL (9.6-12.0); Monocytes % 12.5 % (1.7-12.7); Platelet Count 90 T/CUMM (130-400); Red Blood Count 2.92 MC/CUMM (3.8-5.5); Red Cell Distribution Width 20.7 % (9.3-17.3); White Blood Count 4.3 T/CUMM (4-12)
[2021-02-10 06:52] LABS: Albumin 2.6 G/DL (3.4-5.0); Bilirubin,Total 1.8 MG/DL (0.20-1.00); Calcium 7.9 MG/DL (8.5-10.1); Osmolality,Calculated 282.7 MOS/KG (273-304); Potassium 4.5 MMOL/L (3.5-5.1); Total Protein 4.7 G/DL (6.4-8.2)
[2021-02-10] MEDS: ONDANSETRON 4 MG/2 ML VIAL IV PRN (07:31)
[2021-02-10] MEDS: MORPHINE 2 MG/1 ML SYRINGE IV PRN (07:32)
[2021-02-10] MEDS: PANTOPRAZOLE 40 MG TABLET PO SCH (08:36)
[2021-02-10 12:41] VITALS: BP 113/48
== END 2021-02-10 13:06 | disposition home or self-care (01) | DRG 378 ==
LOC: N.ED 03:39 → SUATTDRO 06:27 → N.EDINP 06:27 → N.CC 08:42 → N.5E 02-09 18:28
PROVIDERS: ADMIT Family Medicine; ATTEND Internal Medicine

== ENCOUNTER 2021-07-05 09:19 | Inpatient (IN) ==
[2021-07-05 10:49] LABS: RBC,Urine 5290 /HPF (0-4)
[2021-07-05 10:50] LABS: Bilirubin,Urine Small mg/dL (Negative); Blood, Urine Large mg/dL (Negative); Glucose,Urine (UA) Negative (Negative); Ketones,Urine Trace mg/dL (Negative); Nitrite,Urine Positive (Negative); Protein,Urine 3+ mg/dL (Negative); Urine Appearance Cloudy (Clear); Urine Color Brown (Yellow); Urine Specific Gravity 1.025 (1.001-1.035); Urine Urobilinogen 0.2 eU/dL (<2.0); Urine pH 5.5 (4.5-8.0)
[2021-07-05 11:08] LABS: Basophils % 1.1 % (0.0-0.8); Eosinophils % 1.1 % (0.00-10.9); Hematocrit 32.9 VOL% (42.0-52.0); Hemoglobin 10.1 GM/DL (14.0-18.0); Immature Granulocytes Absolute 0.45 #; Lymphocytes # 0.7 10*3/uL (1.4-4.0); Lymphocytes % 24.2 % (21.2-54.2); Mean Corpuscular HGB Conc 30.7 GM/DL (32-36); Mean Corpuscular Volume 104.1 FL (87-102); Mean Platelet Volume 10.4 FL (9.6-12.0); Monocytes % 25.6 % (1.7-12.7); Platelet Count 165 T/CUMM (130-400); Red Blood Count 3.16 MC/CUMM (3.8-5.5); Red Cell Distribution Width 16.3 % (9.3-17.3); White Blood Count 2.8 T/CUMM (4-12)
[2021-07-05 11:19] LABS: PT Patient Result 10.8 SECS (10.5-12.0)
[2021-07-05 11:30] LABS: Albumin 3.1 G/DL (3.4-5.0); Bilirubin,Total 0.4 MG/DL (0.20-1.00); Calcium 8.4 MG/DL (8.5-10.1); Osmolality,Calculated 283.4 MOS/KG (273-304); Potassium 4.3 MMOL/L (3.5-5.1); Total Protein 6.2 G/DL (6.4-8.2)
[2021-07-05] MEDS ORDERED: SODIUM CHLORIDE 0.9% 1,000 ML IV STA (11:30)
[2021-07-05] MEDS ORDERED: ONDANSETRON 4 MG/2 ML VIAL IV STA (11:30)
[2021-07-05] MEDS ORDERED: HYDROmorphone 1 MG/1 ML SYRINGE IM STA (11:31)
[2021-07-05] MEDS ORDERED: HYDROmorphone 1 MG/1 ML SYRINGE IV STA (11:57)
[2021-07-05 12:07] LABS: Band Neutrophils 3 % (0-10); Eosinophils 3 % (0-10); Lymphocytes 23 % (20-55); Metamyelocytes 8 %; Myelocytes 2 %; Segmented Neutrophils 34 % (50-85); Total Cells Counted 100
[2021-07-05 12:08] LABS: Anisocytosis 1+; Macrocytosis 1+
[2021-07-05 12:09] LABS: Platelet Estimate Adequate; Polychromasia 1+
[2021-07-05] MEDS ORDERED: VANCOMYCIN INJ 1,250 MG in SODIUM CHLORIDE 0.9% 250 ML IV ONE ×2 (13:45→15:30)
[2021-07-05] MEDS ORDERED: GLUCAGON 1 MG VIAL IM PRN (14:22)
[2021-07-05] MEDS ORDERED: hydrALAZINE 20 MG/1 ML VIAL IV PRN (14:26)
[2021-07-05] MEDS ORDERED: DEXTROSE 10% 250 ML BAG IV PRN (14:34)
[2021-07-05] MEDS: PIPERACILLIN/TAZOBACTAM 3,375 MG in SODIUM CHLORIDE 0.9% 100 ML IV SCH ×2 (15:29→22:01)
[2021-07-05 15:54] LABS: % Iron Saturation 55.8 % (18-50)
[2021-07-05 16:01] LABS: Folate 6.07 NG/ML (5.38-24.0)
[2021-07-05] MEDS: SODIUM CHLORIDE 0.9% 1,000 ML IV SCH ×2 (17:26→22:04)
[2021-07-05] MEDS: MORPHINE 2 MG/1 ML SYRINGE IV PRN ×2 (17:44→22:16)
[2021-07-05] MEDS: ONDANSETRON 4 MG/2 ML VIAL IV PRN ×2 (17:44→22:16)
[2021-07-06] MEDS: PIPERACILLIN/TAZOBACTAM 3,375 MG in SODIUM CHLORIDE 0.9% 100 ML IV SCH ×3 (05:30→21:40)
[2021-07-06] MEDS: HEPARIN 5,000 UNIT/1 ML VIAL SUBCUT SCH ×4 (05:55→13:54)
[2021-07-06 06:30] LABS: Basophils % 0.5 % (0.0-0.8); Eosinophils % 0.5 % (0.00-10.9); Hematocrit 28.8 VOL% (42.0-52.0); Immature Granulocytes % 18.7 %; Lymphocytes # 0.5 10*3/uL (1.4-4.0); Lymphocytes % 24.8 % (21.2-54.2); Mean Corpuscular HGB Conc 31.3 GM/DL (32-36); Mean Corpuscular Volume 104.3 FL (87-102); Mean Platelet Volume 11.2 FL (9.6-12.0); Monocytes % 24.3 % (1.7-12.7); Neutrophils % 31.2 % (38.7-73.9); Platelet Count 120 T/CUMM (130-400); Red Blood Count 2.76 MC/CUMM (3.8-5.5); Red Cell Distribution Width 16.5 % (9.3-17.3); White Blood Count 2.1 T/CUMM (4-12)
[2021-07-06 06:54] LABS: Band Neutrophils 4 % (0-10); Hypochromia Slight; Lymphocytes 37 % (20-55); Microcytosis Slight; Platelet Estimate Normal; Segmented Neutrophils 39 % (50-85); Total Cells Counted 100
[2021-07-06 07:04] LABS: Albumin 2.4 G/DL (3.4-5.0); Bilirubin,Total 1.1 MG/DL (0.20-1.00); Potassium 5.1 MMOL/L (3.5-5.1); Risk Ratio 2.33; Total Protein 5.3 G/DL (6.4-8.2); VLDL Cholesterol 13.2 MG/DL
[2021-07-06] MEDS: MORPHINE 2 MG/1 ML SYRINGE IV PRN ×3 (07:46→21:44)
[2021-07-06] MEDS: ONDANSETRON 4 MG/2 ML VIAL IV PRN ×3 (07:50→21:42)
[2021-07-06] MEDS: PANTOPRAZOLE 40 MG TABLET PO SCH (09:42)
[2021-07-06] MEDS: SODIUM CHLORIDE 0.9% 1,000 ML IV SCH (19:50)
[2021-07-07] MEDS: MORPHINE 2 MG/1 ML SYRINGE IV PRN ×2 (02:09→08:42)
[2021-07-07] MEDS: ONDANSETRON 4 MG/2 ML VIAL IV PRN ×4 (02:11→23:07)
[2021-07-07] MEDS: HEPARIN 5,000 UNIT/1 ML VIAL SUBCUT SCH ×2 (02:15→20:05)
[2021-07-07] MEDS: SODIUM CHLORIDE 0.9% 1,000 ML IV SCH (04:45)
[2021-07-07] MEDS: PIPERACILLIN/TAZOBACTAM 3,375 MG in SODIUM CHLORIDE 0.9% 100 ML IV SCH ×3 (04:45→20:06)
[2021-07-07 06:56] LABS: Basophils % 0.5 % (0.0-0.8); Hematocrit 28.8 VOL% (42.0-52.0); Hemoglobin 8.7 GM/DL (14.0-18.0); Immature Granulocytes % 10.4 %; Lymphocytes # 0.5 10*3/uL (1.4-4.0); Lymphocytes % 23.8 % (21.2-54.2); Mean Corpuscular HGB Conc 30.2 GM/DL (32-36); Mean Corpuscular Volume 106.7 FL (87-102); Mean Platelet Volume 10.9 FL (9.6-12.0); Monocytes % 20.2 % (1.7-12.7); Neutrophils % 44.1 % (38.7-73.9); Platelet Count 109 T/CUMM (130-400); Red Cell Distribution Width 16.2 % (9.3-17.3); White Blood Count 1.9 T/CUMM (4-12)
[2021-07-07 07:23] LABS: Albumin 2.3 G/DL (3.4-5.0); Bilirubin,Total 0.6 MG/DL (0.20-1.00); Osmolality,Calculated 283.3 MOS/KG (273-304)
[2021-07-07 07:26] LABS: Band Neutrophils 1 % (0-10); Lymphocytes 35 % (20-55); Segmented Neutrophils 45 % (50-85); Total Cells Counted 100
[2021-07-07 07:27] LABS: Hypochromia Slight; Microcytosis Slight; Platelet Estimate Decreased
[2021-07-07] MEDS: PANTOPRAZOLE 40 MG TABLET PO SCH (08:41)
[2021-07-07] MEDS: POLYETHYLENE GLYCOL POWDER 17 GM PACK PO SCH (20:13)
[2021-07-07] MEDS: HYDROmorphone 1 MG/1 ML SYRINGE IV PRN (23:08)
[2021-07-08] MEDS: SODIUM CHLORIDE 0.9% 1,000 ML IV SCH ×3 (00:46→13:07)
[2021-07-08] MEDS: PIPERACILLIN/TAZOBACTAM 3,375 MG in SODIUM CHLORIDE 0.9% 100 ML IV SCH (05:07)
[2021-07-08 07:13] LABS: Basophils % 0.4 % (0.0-0.8); Eosinophils % 0.4 % (0.00-10.9); Hematocrit 29.4 VOL% (42.0-52.0); Hemoglobin 9.2 GM/DL (14.0-18.0); Immature Granulocytes % 11.9 %; Immature Granulocytes Absolute 0.27 #; Lymphocytes # 0.5 10*3/uL (1.4-4.0); Lymphocytes % 21.1 % (21.2-54.2); Mean Corpuscular HGB Conc 31.3 GM/DL (32-36); Mean Corpuscular Volume 105.4 FL (87-102); Mean Platelet Volume 11.9 FL (9.6-12.0); Monocytes % 19.4 % (1.7-12.7); Neutrophils % 46.8 % (38.7-73.9); Platelet Count 111 T/CUMM (130-400); Red Blood Count 2.79 MC/CUMM (3.8-5.5); Red Cell Distribution Width 16.2 % (9.3-17.3); White Blood Count 2.3 T/CUMM (4-12)
[2021-07-08 07:42] LABS: Albumin 2.5 G/DL (3.4-5.0); Bilirubin,Total 0.4 MG/DL (0.20-1.00); Calcium 7.9 MG/DL (8.5-10.1); Osmolality,Calculated 280.4 MOS/KG (273-304); Potassium 5.1 MMOL/L (3.5-5.1); Total Protein 5.2 G/DL (6.4-8.2)
[2021-07-08 07:45] LABS: Folate 5.88 NG/ML (5.38-24.0); Vitamin B12 1814 PG/ML (211-911)
[2021-07-08 08:11] LABS: % Iron Saturation 70.8 % (18-50); Ferritin 1991.9 ng/mL (26-388)
[2021-07-08 08:34] LABS: Band Neutrophils 8 % (0-10); Eosinophils 1 % (0-10); Hypochromia Slight; Lymphocytes 27 % (20-55); Metamyelocytes 2 %; Microcytosis 1+; Ovalocytes Slight; Promyelocytes 1 %; Segmented Neutrophils 49 % (50-85); Total Cells Counted 100
[2021-07-08 08:35] LABS: Platelet Estimate Decreased
[2021-07-08 09:02] LABS: Sedimentation Rate-Westergren 20 MM/HR (0-15)
[2021-07-08] MEDS: HYDROmorphone 1 MG/1 ML SYRINGE IV PRN (09:37)
[2021-07-08] MEDS: ONDANSETRON 4 MG/2 ML VIAL IV PRN (09:38)
[2021-07-08] MEDS: HEPARIN 5,000 UNIT/1 ML VIAL SUBCUT SCH (10:53)
[2021-07-08] MEDS: POLYETHYLENE GLYCOL POWDER 17 GM PACK PO SCH (11:04)
[2021-07-08] MEDS: PANTOPRAZOLE 40 MG TABLET PO SCH (11:05)
[2021-07-08 12:44] VITALS: BP 158/74
[2021-07-08] MEDS ORDERED: cephALEXin 500 MG CAPSULE PO SCH (21:00)
[2021-07-12 15:06] LABS: Hb A 96.3 % (95.8-98.0); Hb F 0.7 % (0.0-0.9)
[2021-07-13 10:52] LABS: Hemoglobin A1 (Alkaline) 93.7 % (96.5-98.5); Hemoglobin A2 (Alkaline) 2.4 % (1.5-3.5); Hemoglobin F (Alkaline) 3.9 %
== END 2021-07-08 13:47 | disposition home or self-care (01) | DRG 690 ==
LOC: N.ED 09:19 → SUATTDRO 14:22 → N.EDINP 14:22 → N.5E 18:35
PROVIDERS: ADMIT Internal Medicine; ATTEND Hospitalist